=== PATIENT | female | born 1940 | race Caucasian/White ===

== ENCOUNTER 2017-05-30 07:06 | Inpatient (IN) | payer MEDICARE ==
[~2017-05-30] VITALS: Ht 167.6 cm; Wt 79.0 kg
[~2017-05-30 07:06] MED LIST: ACETAMINOPHEN325 M1 PO; AMLODIPINE; ATORVASTATIN CA20 MG PO; BISACODYL5 MG PR; CENTRUM SILVER1 EAC3 PO; CLOPIDOGREL75 MG PO; GABAPENTIN400 MG PO; GLIMEPIRIDE4 MG PO; HYDROCHLO; NORCO 10MG-325MG1 EA PO; NOVOLIN 70100 UNITS/; NYSTATIN1 EAC1; ONDANSETRO4 MG/UDTAB PO; RENA-VITE RX T1 EACH; SANTYL15 GM; TYLENOL WITH C1 EAC1 PO; Z.0.ASPIRIN325 MG PO; Z.0.FUROSEMIDE40 MG PO; Z.0.GLIPIZIDE5 MG PO; Z.0.HYDROCHLOROTHIA2 PO; Z.0.LISINOPRIL40 MG PO; Z.0.METOPROLOL TART2 PO; Z.0.NORCO 10-325 T1 PO; Z.0.SIMVASTATIN40 MG PO; Z.0.TRADJENTA5 MG PO; ZINC SULFATE220 M1; [UNRECOGNIZED DRUG - OTHER] PO; [UNRECOGNIZED DRUG - OTHER] PO
[2017-05-30] MEDS ORDERED: ASPIRIN 325 MG TAB PO ONE (07:30)
[2017-05-30] MEDS ORDERED: ACETAMINOPHEN 325 MG TAB PO STA (07:36)
[2017-05-30 07:39] LABS: BASOPHILS % 0.2 % (0.0-1.0); EOSINOPHILS % 0.2 % (0.0-6.0); HEMATOCRIT 33.3 % (34.2-44.1); HEMOGLOBIN 10.5 g/dL (12.0-16.0); LYMPHOCYTES # (AUTO) 3.2 (1.0-3.2); LYMPHOCYTES % 18.9 % (18.0-39.1); MEAN CORPUSCULAR HEMOGLOBIN 30.9 pg (28-32); MEAN CORPUSCULAR HGB CONC 31.5 g/dL (31-35); MEAN CORPUSCULAR VOLUME 97.9 fL (81-99); MONOCYTES # (AUTO) 0.8 (0.2-0.8); MONOCYTES % 4.7 % (4.4-11.3); NEUTROPHILS # (AUTO) 12.6 (2.1-6.9); NEUTROPHILS % 75.5 % (38.7-80.0); PLATELET COUNT 135 x10e3/uL (140-360); RED CELL DISTRIBUTION WIDTH 16.7 % (11.7-14.4)
[2017-05-30 07:50] LABS: INR 1.03
[2017-05-30 07:51] LABS: PARTIAL THROMBOPLASTIN TIME 31.9 seconds (23.8-35.5)
[2017-05-30 07:58] LABS: ALBUMIN 3.1 g/dL (3.5-5.0); ALBUMIN/GLOBULIN RATIO 0.6 (0.8-2.0); CALCIUM 8.9 mg/dL (8.4-10.2); CREATININE, SERUM 4.61 mg/dL (0.57-1.11)
--- NOTE | 2017-05-30 08:03 | Diagnostic Imaging Report ---
PROCEDURE: A single AP view of the chest. COMPARISON: Portable chest 09/08/2016. INDICATIONS: CHEST PAIN FINDINGS: Lines/tubes: None. Lungs: Bilateral multifocal airspace opacifications. No parenchymal mass. Pleura: Small bilateral pleural effusions. No pneumothorax. Heart and mediastinum: The heart and the mediastinum are unremarkable. Atherosclerotic calcifications. Bones: No acute bony abnormality. Degenerative changes of the thoracic spine. IMPRESSION: Bilateral multifocal airspace opacifications may represent edema or pneumonia. Dictated by: Angelo Rebolledo M.D. on 05/30/2017 at 8:11 Electronically approved by: Angelo Rebolledo M.D. on 05/30/2017 at 8:11
[2017-05-30 08:07] LABS: CREATINE KINASE MB 30.3 ng/mL (0.00-5.00)
[2017-05-30 08:13] LABS: TROPONIN I 18.34 ng/mL (0-0.300)
[2017-05-30] MEDS ORDERED: SODIUM CHLORIDE 0.9% 1000ML 1,000 ML IV STA (08:20)
[2017-05-30] MEDS ORDERED: LEVOFLOXACIN 500MG/D5W 100ML 100 ML IV STA (08:21)
[2017-05-30] MEDS ORDERED: VANCOMYCIN 1GM/NS 250 ML 250 ML IV STA (08:21)
[2017-05-30 08:23] LABS: BILIRUBIN,URINE NEGATIVE (NEGATIVE); KETONES,URINE NEGATIVE (NEGATIVE); LEUKOCYTE ESTERASE ,URINE TRACE (NEGATIVE); NITRITE,URINE NEGATIVE (NEGATIVE); URINE UROBILINOGEN 0.2 mg/dL (0.2 - 1)
[2017-05-30] MEDS ORDERED: SODIUM CHLORIDE 0.9% 1000ML 1,000 ML ONE ×2 (08:25→17:22)
[2017-05-30 08:26] LABS: PROTEIN,URINE DIPSTICK 2+ (NEGATIVE)
[2017-05-30 08:27] LABS: CLARITY,URINE SL CLOUDY (CLEAR); COLOR,URINE YELLOW (YELLOW)
[2017-05-30 08:38] LABS: AMORPHOUS SEDIMENT,URINE RARE (FEW); BACTERIA,URINE RARE /HPF; EPITHELIAL CELLS,URINE FEW /LPF; TRANSITIONAL EPI CELLS,URINE RARE
[2017-05-30 08:40] LABS: STREPTOCOCCUS GRP A ANTIGEN NEGATIVE (NEGATIVE)
[2017-05-30 08:47] LABS: INFLUENZAE A&B ANTIGEN (RAPID) NEGATIVE (NEGATIVE)
[2017-05-30] MEDS ORDERED: SODIUM CHLORIDE 0.9% 1000ML 1,000 ML IV SCH (09:15)
[2017-05-30] MEDS ORDERED: NORCO 7.5-3251 EACH PO (09:38)
[2017-05-30] MEDS ORDERED: GABAPENTIN300 MG PO (09:38)
[2017-05-30] MEDS ORDERED: ALBUTEROL/IPRATROPIUM 3 ML NEB NEB PRN (10:00)
--- NOTE | 2017-05-30 10:12 | History and Physical ---
I am covering for Dr. Luna. Ms. 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 She has been having chest pain on and off, shortness of breath and fevers. She decided to come to the emergency room. PAST MEDICAL HISTORY: She has a history of diabetes, end-stage renal disease, peripheral arterial disease, status post stent. SURGICAL HISTORY: She had a left below knee amputation a year ago. She has a right little toe amputation. She had some type of chest surgery, chest mass removed several years ago. ALLERGIES: SHE IS ALLERGIC TO PENICILLIN, TETANUS TOXOID. SOCIAL HISTORY: She lives at home with her . She used to smoke and quit several years ago. She does not drink any alcohol. PHYSICAL EXAMINATION GENERAL: Today, she is awake. She is alert. VITALS: She had a 101 fever when she came. Blood pressure is low at 93/51. HEART: Regular rate. LUNGS: Poor inspiratory effort. She has some rhonchi on the left side. ABDOMEN: Distended and soft. She has an umbilical hernia that is not tender. EXTREMITIES: She has a left below knee amputation of the leg. BLOOD WORK: White count is 15.71, hemoglobin 10.5, hematocrit 33.3. Sodium 132, creatinine 4.61, glucose 236. is 344. Troponin is 18.34. CK-MB is also elevated. BNP is 2024. Urine shows 6-10 white blood cells. Influenza test and strep screening were negative. Urine culture and blood cultures are pending. Chest x-ray shows bilateral multifocal light airspace opacification. May represent edema or pneumonia. ASSESSMENT AND PLAN 1. Chest pain with elevated cardiac enzymes: Elevated troponin. Rule out coronary artery disease. Rule out myocardial infarction. 2. Sepsis due to low blood pressure, fever, elevated white count secondary to pneumonia. 3. End-stage renal disease, on dialysis. 4. Diabetes, type 2, uncontrolled. 5. Peripheral artery disease: Status post stent. 6. Left below knee amputation. PLAN: At the present time, get cardiology consult, infectious disease consult and nephrology consult. Patient is started on IV antibiotics. She is on IV fluids. The plan is to admit her to the ICU due to the low blood pressure, elevated white count, fever, and elevated cardiac enzymes. All of this was discussed with the patient and at bedside. All questions were answered to satisfaction. The prognosis is guarded. I spent more than 40 minutes examining the patient, talking with the patient and at bedside, reviewing lab results, x-rays, and elaborating a treatment plan. Patient is going to be admitted to the ICU as soon as we have a bed available. At the present time, she is still in the ER. Job#: [id number] KATELIN
[2017-05-30] MEDS: LEVOFLOXACIN 250MG/D5W 50ML 50 ML IV SCH (10:54)
[2017-05-30] MEDS: SODIUM CHLORIDE 0.9% 1000ML 1,000 ML IV SCH ×2 (11:30→17:02)
[2017-05-30] MEDS ORDERED: ASPIRIN 81 MG CHEW TAB PO ONE (11:45)
[2017-05-30] MEDS ORDERED: HEPARIN SOD (PORCINE) 1000 UNIT/ML SDV IV ONE (12:00)
--- NOTE | 2017-05-30 12:50 | Consultation ---
DATE OF CONSULTATION: May 30, 2017 CARDIOLOGY CONSULTATION REQUESTING PHYSICIAN: Kayla Winkler MD REASON FOR CONSULTATION: Chest pain. HISTORY OF PRESENT ILLNESS: This is a 75-year-old woman with history of end-stage renal disease on hemodialysis, peripheral arterial disease status post left BKA, diabetes mellitus, hypertension, and reported history of congestive heart failure, who presented with complaint of chest pain. She reports her chest pain began yesterday morning. She describes it as a hurting pain high in the center of her chest. The pain was 8 out of 10 in severity and associated with shortness of breath. There was no nausea, diaphoresis or radiation. She denies edema, orthopnea or PND. The pain was ongoing until she presented to the ER. On arrival to the ER, she was found to have a leukocytosis of 16.7 as well as troponin of 18.3, CK 344 and CK-MB 3. BNP was 2,000. Lactic acidosis of 42.3. Cardiology was consulted for further evaluation. REVIEW OF SYSTEMS: Negative, except as per HPI. PAST MEDICAL HISTORY 1. Diabetes mellitus. 2. Hypertension. 3. Peripheral arterial disease, status post left BKA and revascularization. 4. End-stage renal disease on hemodialysis. 5. Reported history of congestive heart failure. PAST SURGICAL HISTORY 1. Left BKA. 2. Right toe amputation. ALLERGIES: PLEASE SEE EMR. MEDICATIONS: Please see medication list. SOCIAL HISTORY: She quit smoking in 1999, but previously smoked a pack per day. No alcohol or drugs. FAMILY HISTORY: Noncontributory. PHYSICAL EXAMINATION VITAL SIGNS: Temperature 98.4, pulse 68, respiratory rate 19, blood pressure 87/48, oxygen saturation 99%. GENERAL: Well-developed, well-nourished woman in no acute distress. HEENT: Normocephalic and atraumatic. Pupils are equal. No scleral icterus. NECK: Supple. No thyromegaly or cervical lymphadenopathy. She is wearing BiPAP. LUNGS: Clear to auscultation bilaterally. No wheezes or crackles. CARDIOVASCULAR: Normal rate, regular rhythm. No murmur. Normal S1 and S2. ABDOMEN: Soft. Nontender. EXTREMITIES: No edema. Status post left BKA. NEURO: Nonfocal exam. LABS: Sodium 132, potassium 5, chloride 96, CO2 19, BUN 57, creatinine 4.6. Lactic acid 42.3. Troponin 18.3. BNP 2024. WBC 6.7, hemoglobin 10.5, hematocrit 32.3, platelets 135. CHEST X-RAY: Bilateral multifocal air space opacifications may represent edema or pneumonia. EKG: Sinus tachycardia with frequent PVCs and fusion complexes, left axis deviation, pulmonary disease pattern. RSR prime or QR pattern in V1 suggests right ventricular conduction delay, septal infarct age undetermined. IMPRESSION 1. Upg-JK-rginnlvgf myocardial infarction. 2. Sepsis with fever, tachycardia and hypotension, possibly urinary source versus pneumonia. 3. End-stage renal disease on dialysis. 4. Diabetes mellitus, type 2. 5. Peripheral arterial disease, status post stent and left below-knee amputation. 6. History of congestive heart failure. RECOMMENDATIONS: Start heparin drip. Trend cardiac enzymes. Obtain echocardiogram. Antibiotics per primary service. Vasopressor support as well as fluids as necessary given suspected sepsis. Thank you for this consult. We will continue to follow. Job#: [id number]
--- NOTE | 2017-05-30 13:06 | Consultation ---
DATE OF CONSULTATION: May 30, 2017 INFECTIOUS DISEASE CONSULTATION REASON FOR CONSULT: Sepsis. HPI: This is a 76-year-old female with history of end-stage renal disease on hemodialysis through a left arm AV fistula, who presented to the emergency room at [facility] with intermittent chest pain and shortness of breath. She was noted to have hypoxia down to 80% on her baseline nasal cannula, so she was put on BiPAP. EKG showed atrial flutter. She was also noted to have leukocytosis of 16,000 and fever of 101. Urinalysis was abnormal, and she was started on empiric antibiotics. REVIEW OF SYSTEMS CONSTITUTIONAL: Fever. No chills. CHEST: Intermittent chest pain and palpitations. RESPIRATIONS: Shortness of breath with no cough. GASTROINTESTINAL: No nausea, vomiting or diarrhea. SKIN: No rash. MUSCULOSKELETAL: No change in joint pain or joint swelling. PAST MEDICAL HISTORY: Peripheral vascular disease, end-stage renal disease, diabetes. PAST SURGICAL HISTORY: Left below-knee amputation, right 5th toe amputation, coronary angioplasty and stent placement, left arm AV fistula creation about 2 years ago. SOCIAL HISTORY: Lives at home. Nonsmoker. Nondrinker. FAMILY HISTORY: Hypertension. MEDICATIONS: Reviewed, include vancomycin and levofloxacin. PHYSICAL EXAMINATION VITAL SIGNS: Currently afebrile with temperature 98.4, 101 on presentation. Pulse 90, respirations 23, blood pressure 89/46, pulse ox 96% on BiPAP. Her pulse ox was 83% on nasal cannula. GENERAL: Alert and awake on BiPAP. NECK: Supple. LUNGS: Clear to auscultation. HEART: Irregular, tachycardic. ABDOMEN: Soft and nontender. EXTREMITIES: Left BKA. No cyanosis or clubbing. LABS: White count 16, hemoglobin 10, platelets 135. Sodium 132, potassium 5, creatinine 4. Lactic acid 42. Creatine kinase elevated at 344. CK-MB 30. Troponin 18. BUN was cloudy with positive leukocyte esterase, 10 white cells and rare bacteria. Cultures are pending. IMPRESSION 1. Sepsis, possibly secondary to urinary tract infection. 2. Respiratory distress, likely secondary to atrial flutter. 3. End-stage renal disease on hemodialysis through a 2-year-old unremarkable left arm arteriovenous fistula. 4. Peripheral vascular disease status post left below-knee amputation and right 5th toe amputation. RECOMMENDATIONS: Blood, urine and sputum cultures have been collected. Continue renally dose levofloxacin for now and follow cultures. Dr. Alexandra to follow. Thank you for the consult. Job#: [id number]
[2017-05-30] MEDS: HEPARIN 25,000U/0.45% NS 250ML 800 UNIT in SODIUM CHLORIDE 0.9% 250ML 0 ML IV SCH (13:59)
[2017-05-30] MEDS ORDERED: NOREPINEPHRINE BITARTRATE/ NS 250 ML IV PRN (14:00)
--- NOTE | 2017-05-30 14:02 | Diagnostic Imaging Report ---
PROCEDURE:ULTRASOUND GUIDANCE FOR VASCULAR ACCESS COMPARISON:None. INDICATIONS:Central Line Placement FINDINGS:Right internal jugular vein is occluded. The right external jugular vein is noted to be patent. Ultrasound guidance was utilized for access for central venous catheter placement. CONCLUSION:Patent right external jugular vein. Successful ultrasound guidance for central venous catheter placement. Dictated by: Angelo Rebolledo M.D. on 05/30/2017 at 14:11 Electronically approved by: Angelo Rebolledo M.D. on 05/30/2017 at 14:11
[2017-05-30] MEDS ORDERED: ALBUMIN 5% 250ML IV ONE (14:15)
[2017-05-30] MEDS ORDERED: NOREPINEPHRINE INJ 4MG/4ML 8 MG in SODIUM CHLORIDE 0.9% 250ML 250 ML IV PRN (14:15)
[2017-05-30] MEDS ORDERED: ALBUMIN HUMAN 50 ML IV ONE (14:15)
--- NOTE | 2017-05-30 14:18 | Diagnostic Imaging Report ---
PROCEDURE:NON-TUNNELLED CVC CATH PLACMNT COMPARISON:None. INDICATIONS: Central Line Placement COMPLICATIONS: None MEDICATIONS: None BLOOD LOSS: None. PROCEDURE: The procedure was performed at the bedside in the emergency room. Ultrasonographic evaluation demonstrated an occluded right internal jugular vein. The right external jugular vein is patent. A safer approach was determined. The right neck was prepped and draped in usual sterile fashion. 1% lidocaine was infused into the subcutaneous tissues for local anesthesia. Utilizing direct sonographic guidance, a 21 gauge needle was advanced into the right external jugular vein. A 0.018 inch wire was advanced centrally. An access sheath placed over the wire to secure the vascular access. The wire was upsized to a 0.035 inch wire. A single dilation was performed over the wire. A triple-lumen catheter was advanced over the wire. The wire was removed. The catheter ports demonstrated proper function with aspiration and flushing with sterile saline. The catheter ports were flushed with sterile saline. The catheter was secured to the skin with 3-0 Ethilon suture. A sterile dressing was applied. The patient tolerated the procedure well. There were no immediate complications. The patient remained in the emergency room in stable unchanged condition. CONCLUSION: Successful placement of a right external jugular temporary central venous catheter utilizing ultrasound guidance. Dictated by: Angelo Rebolledo M.D. on 05/30/2017 at 14:26 Electronically approved by: Angelo Rebolledo M.D. on 05/30/2017 at 14:26
--- NOTE | 2017-05-30 14:28 | Diagnostic Imaging Report ---
PROCEDURE: A single AP view of the chest. COMPARISON: None. INDICATIONS: CENTRAL LINE PLACEMENT FINDINGS: Lines/tubes: Right external jugular temporary central venous catheter with tip projecting over the expected region of the superior vena cava. Lungs: Bibasilar airspace opacities. No parenchymal mass. Pleura: Moderate left and small right pleural effusions. No pneumothorax. Heart and mediastinum: The heart and the mediastinum are unremarkable. Atherosclerotic calcifications. Bones: No acute bony abnormality. Degenerative changes of the thoracic spine. IMPRESSION: Bibasilar airspace opacities may represent developing pneumonia. Dictated by: Angelo Rebolledo M.D. on 05/30/2017 at 14:37 Electronically approved by: Angelo Rebolledo M.D. on 05/30/2017 at 14:37
[2017-05-30 14:39] LABS: CREATINE KINASE MB 21.3 ng/mL (0.00-5.00)
[2017-05-30 14:43] LABS: TROPONIN I 16.19 ng/mL (0-0.300)
--- NOTE | 2017-05-30 14:43 | Consultation ---
DATE OF CONSULTATION: May 30, 2017 NEPHROLOGY CONSULT REASON FOR THE CONSULT: End-stage renal disease. HISTORY OF PRESENT ILLNESS: This is a 76-year-old female who is known to our service as we manage her dialysis as an outpatient. She is known to have multiple medical problems including hypertension, diabetes, peripheral vascular disease status post BKA on the left side, and she has a chronic right foot ulcer and right toe amputation. She is known to have severe vascular disease status post previous angioplasties and end-stage renal disease on hemodialysis every Saturday/Saturday/Saturday at [facility]. She called yesterday at the unit, complaining that she was not feeling well and she was feeling some fever, chills, along with diarrhea in the last couple of days and muscle aches. So, she did not come for dialysis and she rescheduled for today. Today she woke up; she was having chest pain, substernal, high in her chest, scale 7 out of 10, nonradiating, with mild nausea. So, she came to the ER for further evaluation, and Cardiology has been consulted on the case. No other GI/ complaints. The patient was found to have fever of 101 along with leukocytosis and x-ray suggestive of pneumonia. She is hypotensive currently in the ER. We are consulted to manage dialysis as an inpatient. PAST MEDICAL HISTORY: As mentioned above. REVIEW OF SYSTEMS: Negative otherwise. PAST SURGICAL HISTORY: As mentioned above. Status post left BKA, previous angioplasties, right toe amputation, and AV fistula and previous AV access for dialysis. ALLERGIES: PER RECORD. SOCIAL HISTORY: Ex-smoker, quit in the past. No alcohol, no IV drug abuse. Living with her . VITAL SIGNS: Today blood pressure is 96/48. Heart rate is 68 and temperature 101. PHYSICAL EXAMINATION GENERAL APPEARANCE: No acute distress, x3. HEAD, EARS, EYES, NECK: No lymphadenopathy. HEART: Regular rate and rhythm. LUNGS: Bibasilar rales. ABDOMEN: Soft, nontender. EXTREMITIES: Trace edema. White count is 16.7 with left shift, neutrophils 75%. Hemoglobin 10.5. She has sodium 132, potassium is 5, BUN is 57, creatinine is 4.6, CO2 is 19. Lactic acid is 42. Calcium is 8.9. LFTs are okay except AST 69. Troponin 18.34. Albumin 3.1. Chest x-ray: Bilateral opacities. ASSESSMENT AND PLAN 1. End-stage renal disease on hemodialysis every Saturday/Saturday/Saturday, skipped her dialysis yesterday because she was feeling so sick. She is coming today. We are going to dialyze her, and orders have been given. 2. Electrolytes. Low potassium bath. 3. Hypotension. Blood pressure is on the low side. Might need pressor support given septic shock. 4. Pneumonia. On antibiotics per primary team. Check for influenza as we are seeing a lot of flu cases recently. 5. Anemia of chronic disease. Epogen if hemoglobin drops below 10. 6. Diabetes. Monitor blood sugar. 7. Sepsis with leukocytosis along with fever and chills. Suspect the focus is pneumonia. Pancultures have been sent. She is on antibiotics. Also note that the patient has chronic right foot ulcer. 8. Peripheral vascular disease status post previous angioplasties with left below-knee amputation. Patient has chronic right foot ulcer. She follows with Dr. Stoner. Needs wound care evaluation. 9. Mag-DE-xfjxnpgvw myocardial infarction with positive troponin. Dr. Ashton, cardiology, is following. Echo has been ordered. She will start on heparin drip. Will follow her recommendation regarding whether the patient will benefit from heart cath given high risk with diabetes. Will follow their recommendation. Thank you for the consult. We will update the primary team for further recommendations. Job#: [id number] JANY
[2017-05-30 21:17] LABS: CREATINE KINASE MB 22.5 ng/mL (0.00-5.00)
[2017-05-30 21:27] LABS: TROPONIN I 21.452 ng/mL (0-0.300)
[2017-05-31] VITALS (14 sets, daily range): BP systolic 90–132; BP diastolic 46–107
[2017-05-31] MEDS: HYDROCODONE/APAP 7.5MG-325MG 1 EA TAB PO PRN ×3 (01:03→18:14)
[2017-05-31] MEDS: GABAPENTIN 300 MG CAP PO SCH ×4 (01:03→21:52)
[2017-05-31] MEDS ORDERED: GABAPENTIN 300 MG CAP ONE (01:04)
[2017-05-31 03:55] LABS: CREATINE KINASE MB 12.9 ng/mL (0.00-5.00)
[2017-05-31 03:56] LABS: TROPONIN I 12.431 ng/mL (0-0.300)
[2017-05-31] MEDS: SODIUM CHLORIDE 0.9% 1000ML 1,000 ML IV SCH ×3 (08:20→15:22)
--- NOTE | 2017-05-31 10:06 | Progress Note ---
DATE: May 31, 2017 Ms. Cox is a 76-year-old female with a history of peripheral arterial disease, status post stents, end-stage renal disease, on dialysis, diabetes, status post left below knee amputation of the leg a year ago, came to the emergency room complaining of not feeling good for 2-3 days. Developed some shortness of breath and fever. When she came to the emergency room, there was a questionable pneumonia. Troponin was elevated. She ruled in for a fjk-BB-zaiuxrirx IA. At the present time, she is still in the ER. We are waiting for an ICU bed. PHYSICAL EXAMINATION GENERAL: She is awake and alert. She is on BiPAP. VITALS: Temperature is 98.6, blood pressure 122/48. HEART: Regular rate. LUNGS: Clear. ABDOMEN: Distended and soft. BLOOD WORK: White count yesterday was 16.71. Troponin has been elevated 3 times. Urine showed 6-10 white blood cells. Blood cultures so far negative. Urine culture is pending. ASSESSMENT AND PLAN 1. Chest pain with positive cardiac enzymes: She ruled in for a mnl-OW-awccirxfe myocardial infarction. 2. Sepsis secondary to probably pneumonia. 3. End-stage renal disease, on hemodialysis. 4. Diabetes. 5. Peripheral arterial disease, status post stent. 6. Left below knee amputation. PLAN: At the present time, we are waiting for an ICU bed. She is on BiPAP. Continue IV antibiotics. Continue ADA diet. Sliding scale with insulin. The prognosis is still guarded. Like I said, we are waiting for a bed in ICU. All of this was discussed with the patient. All questions were answered to satisfaction. I spent more than 30 minutes examining the patient, overnight events, lab results, x-ray results, and discussing treatment plan with the patient. Job#: [id number] KATELIN
[2017-05-31 10:08] LABS: BASOPHILS % 0.4 % (0.0-1.0); EOSINOPHILS # (AUTO) 0.1 (0.0-0.4); EOSINOPHILS % 0.5 % (0.0-6.0); HEMATOCRIT 31.2 % (34.2-44.1); HEMOGLOBIN 9.6 g/dL (12.0-16.0); LYMPHOCYTES # (AUTO) 1.6 (1.0-3.2); LYMPHOCYTES % 15.5 % (18.0-39.1); MEAN CORPUSCULAR HEMOGLOBIN 30.7 pg (28-32); MEAN CORPUSCULAR HGB CONC 30.8 g/dL (31-35); MEAN CORPUSCULAR VOLUME 99.7 fL (81-99); MONOCYTES # (AUTO) 0.7 (0.2-0.8); MONOCYTES % 7.2 % (4.4-11.3); NEUTROPHILS # (AUTO) 7.9 (2.1-6.9); PLATELET COUNT 120 x10e3/uL (140-360); RED BLOOD COUNT 3.13 x10e6/uL (3.6-5.1)
[2017-05-31 10:26] LABS: ALBUMIN 2.7 g/dL (3.5-5.0); ALBUMIN/GLOBULIN RATIO 0.6 (0.8-2.0); ANION GAP 19.1 mmol/L (8-16); CALCIUM 8.8 mg/dL (8.4-10.2); CREATININE, SERUM 2.78 mg/dL (0.57-1.11); POTASSIUM 4.1 mmol/L (3.5-5.1)
[2017-05-31] MEDS: HEPARIN 25,000U/0.45% NS 250ML 800 UNIT in SODIUM CHLORIDE 0.9% 250ML 0 ML IV SCH (10:40)
[2017-05-31 11:58] LABS: CREATINE KINASE MB 13.6 ng/mL (0.00-5.00)
[2017-05-31] MEDS ORDERED: EPOETIN ALFA 10000 UNIT/ML VIAL SC SCH (12:00)
[2017-05-31 12:15] LABS: TROPONIN I 13.44 ng/mL (0-0.300)
--- NOTE | 2017-05-31 14:36 | Progress Note ---
DATE: May 31, 2017 CARDIOLOGY PROGRESS NOTE SUBJECTIVE: Patient denies chest pain or shortness of breath. She is requiring Levophed 5 mcg per minute as well as BiPAP for respiratory support. Staff indicates that when BiPAP is removed the patient will desat. OBJECTIVE VITAL SIGNS: Temperature 98.7 degrees, pulse 70, respiratory rate 19, blood pressure 115/46, oxygen saturation 100% on BiPAP. GENERAL: Awake, alert, in no acute distress. LUNGS: Clear to auscultation bilaterally. No wheezes or crackles. CARDIOVASCULAR: Normal rate, regular rhythm. No murmur. Normal S1 and S2. ABDOMEN: Soft, nontender. EXTREMITIES: No edema. Status post left BKA. CARDIAC MEDICATIONS: Heparin drip. LABS: WBC 10.3, hemoglobin 9.6, hematocrit __91.2, platelets 120. Sodium 140, potassium 4.1, chloride 104, CO2 21, BUN 29, creatinine 2.78. Troponin 13.4. TELEMETRY: Normal sinus rhythm. IMPRESSION 1. Septic shock requiring vasopressor support, urinary source versus pneumonia. 2. Kej-JG-eseqqtnfu myocardial infarction. 3. End-stage renal disease on hemodialysis. 4. Diabetes mellitus type 2. 5. Peripheral arterial disease status post left superficial femoral artery stent and below-knee amputation. RECOMMENDATIONS: Continue heparin drip. Cardiac enzymes are downtrending. Given patient is asymptomatic and requiring vasopressor support as well as BiPAP, medical management for now. Once patient is more stable, will plan for ischemic evaluation and coronary evaluation at that time. Start aspirin. Check fasting lipid panel. Antibiotics per primary service. Vasopressor support and fluids as necessary given sepsis. Thank you for this consult. We will continue to follow. Job#: [id number] EV
[2017-05-31 18:37] LABS: CREATINE KINASE MB 11.1 ng/mL (0.00-5.00)
[2017-05-31 18:42] LABS: TROPONIN I 12.304 ng/mL (0-0.300)
[2017-05-31] MEDS ORDERED: DEXTROSE 50% SYRINGE 50 ML IV PRN (21:45)
[2017-05-31] MEDS: INSULIN REGULAR, HUMAN 100 UNIT/1 ML 3ML VIAL SQ SCH (22:00)
[2017-06-01] VITALS (69 sets, daily range): BP systolic 75–153; BP diastolic 37–93
[2017-06-01] MEDS: HYDROCODONE/APAP 7.5MG-325MG 1 EA TAB PO PRN ×4 (03:56→23:48)
[2017-06-01] MEDS: GABAPENTIN 300 MG CAP PO SCH ×5 (03:56→23:48)
[2017-06-01 04:39] LABS: BASOPHILS % 0.3 % (0.0-1.0); EOSINOPHILS # (AUTO) 0.2 (0.0-0.4); EOSINOPHILS % 2.4 % (0.0-6.0); HEMATOCRIT 25.4 % (34.2-44.1); LYMPHOCYTES # (AUTO) 1.6 (1.0-3.2); LYMPHOCYTES % 24.7 % (18.0-39.1); MEAN CORPUSCULAR HEMOGLOBIN 30.9 pg (28-32); MEAN CORPUSCULAR HGB CONC 31.1 g/dL (31-35); MEAN CORPUSCULAR VOLUME 99.2 fL (81-99); MONOCYTES # (AUTO) 0.6 (0.2-0.8); MONOCYTES % 9.3 % (4.4-11.3); PLATELET COUNT 121 x10e3/uL (140-360); RED BLOOD COUNT 2.56 x10e6/uL (3.6-5.1); RED CELL DISTRIBUTION WIDTH 16.9 % (11.7-14.4)
[2017-06-01 04:42] LABS: HEMOGLOBIN 7.9 g/dL (12.0-16.0)
[2017-06-01 04:53] LABS: ANION GAP 14.2 mmol/L (8-16); CALCIUM 8.6 mg/dL (8.4-10.2); CREATININE, SERUM 3.34 mg/dL (0.57-1.11); POTASSIUM 4.2 mmol/L (3.5-5.1)
[2017-06-01] MEDS: INSULIN REGULAR, HUMAN 100 UNIT/1 ML 3ML VIAL SQ SCH ×4 (07:30→21:45)
[2017-06-01] MEDS ORDERED: INSULIN REGULAR, HUMAN 100 UNIT/1 ML 3ML VIAL SQ SCH (07:30)
[2017-06-01] MEDS ORDERED: VANCOMYCIN 1GM/NS 250 ML 250 ML IV ONE (10:00)
[2017-06-01] MEDS: LEVOFLOXACIN 250MG/D5W 50ML 50 ML IV SCH (10:29)
[2017-06-01 11:12] LABS: CHOL/HDL RATIO 3.2 (3.0-3.6)
--- NOTE | 2017-06-01 11:49 | Diagnostic Imaging Report ---
Portable chest x-ray CPT code 72241 INDICATION: Pneumonia COMPARISON: Chest x-ray 09/08/2016 FINDINGS: Frontal view of the chest obtained at 1114 hours. The cardiac silhouette is enlarged. Calcifications of the aortic arch are stable. The pulmonary vascular marking are increased. Right subclavian central venous catheter terminates in the SVC. The lungs demonstrate prominent pulmonary interstitium and groundglass airspace opacities throughout the lungs. Left diaphragm is not visualized. There are new patchy opacities in the right lung base. There is no pneumothorax. The osseous structures are intact and normal in morphology. IMPRESSION: 1. Cardiomegaly and pulmonary vascular congestion. A component of pulmonary edema is suspected. 2. Retrocardiac airspace disease is suggestive of atelectasis or infiltrate. Small effusion cannot be excluded. 3. Right basilar atelectasis. Small right pleural effusion cannot be excluded. 4. Central line as described above. No pneumothorax. Signed by: Dr. Rosario Sidhu MD on 06/01/2017 11:45 AM
[2017-06-01] MEDS ORDERED: ASPIRIN 325 MG TAB PO ONE (12:30)
--- NOTE | 2017-06-01 13:49 | Progress Note ---
DATE: CARDIOLOGY PROGRESS NOTE SUBJECTIVE: Patient endorses pain in the middle of her back radiating to her chest. Denies any palpitation, but endorses some shortness of breath. OBJECTIVE VITAL SIGNS: Temperature 98.4, pulse 101, respiratory rate 18, blood pressure 126/75, oxygen saturation 98% on 3 L nasal cannula. GENERAL: Alert and oriented times 3. Resting comfortably in bed. Does not appear to be in any acute distress. NECK: Supple no. JVD noted. LUNGS: Left lower lobe with scattered crackles. Clear to auscultation otherwise. CARDIOVASCULAR: Regular rate and rhythm. No murmurs. Normal S1 and S2. ABDOMEN: Round, soft and nontender. LOWER EXTREMITIES: Diminished pedal pulses. Left BKA. CARDIOVASCULAR MEDICATIONS: Heparin IV drip. LABS: WBC 6.36, hemoglobin 7.9, hematocrit 25.4, platelets 121,000. Sodium 138, potassium 4.2, BUN 42, creatinine 3.34, glucose 124. Calcium 8.6. PT 63.1. Telemetry is normal sinus rhythm. IMPRESSION 1. Septic shock, urinary versus pneumonia. 2. Zio-XZ-knhrzocmd myocardial infarction. 3. End-stage renal disease, on hemodialysis. 4. Diabetes mellitus, type 2. 5. Peripheral arterial disease, status post left superficial femoral artery stent and below knee amputation. RECOMMENDATIONS: Continue with heparin drip. Patient is asymptomatic. However, has been off BiPAP now and is improving. Will consider timing of coronary angiogram. Obtain a lipid panel. Maintain on telemetry at all times. Monitor closely. Consider a repeat CBC due to noted hemoglobin drop overnight. DICTATED BY ROYCE DUNLAP NP Job#: [id number] PR
[2017-06-01] MEDS ORDERED: ENOXAPARIN 30 MG/0.3 ML SYR SC SCH (17:00)
[2017-06-01] MEDS: METOPROLOL TARTRATE 25 MG TAB PO SCH (17:18)
[2017-06-01] MEDS ORDERED: SODIUM CHLORIDE 0.9% 1000ML 2,000 ML ONE (17:20)
[2017-06-01] MEDS ORDERED: AMIODARONE HCL 900 MG in DEXTROSE 5 % 500ML BOTTLE 482 ML IV SCH (19:45)
[2017-06-01] MEDS ORDERED: AMIODARONE HCL 100 ML IV ONE (19:48)
[2017-06-01] MEDS ORDERED: AMIODARONE HCL 150 MG/100 ML BAG IV ONE (20:15)
[2017-06-02] VITALS (43 sets, daily range): BP systolic 78–141; BP diastolic 29–87
[2017-06-02 03:33] LABS: BASOPHILS % 0.4 % (0.0-1.0); EOSINOPHILS # (AUTO) 0.1 (0.0-0.4); HEMATOCRIT 30.1 % (34.2-44.1); HEMOGLOBIN 9.3 g/dL (12.0-16.0); LYMPHOCYTES # (AUTO) 1.2 (1.0-3.2); LYMPHOCYTES % 15.3 % (18.0-39.1); MEAN CORPUSCULAR HEMOGLOBIN 29.9 pg (28-32); MEAN CORPUSCULAR HGB CONC 30.9 g/dL (31-35); MEAN CORPUSCULAR VOLUME 96.8 fL (81-99); MONOCYTES # (AUTO) 0.6 (0.2-0.8); NEUTROPHILS # (AUTO) 5.9 (2.1-6.9); NEUTROPHILS % 74.1 % (38.7-80.0); PLATELET COUNT 119 x10e3/uL (140-360); RED BLOOD COUNT 3.11 x10e6/uL (3.6-5.1); RED CELL DISTRIBUTION WIDTH 18.2 % (11.7-14.4)
[2017-06-02 03:53] LABS: ALBUMIN 2.6 g/dL (3.5-5.0); ALBUMIN/GLOBULIN RATIO 0.6 (0.8-2.0); ANION GAP 16.2 mmol/L (8-16); CALCIUM 8.6 mg/dL (8.4-10.2); CREATININE, SERUM 3.19 mg/dL (0.57-1.11); POTASSIUM 4.2 mmol/L (3.5-5.1)
[2017-06-02 04:06] LABS: TROPONIN I 11.867 ng/mL (0-0.300)
[2017-06-02] MEDS: GABAPENTIN 300 MG CAP PO SCH ×3 (05:57→21:02)
[2017-06-02] MEDS: HYDROCODONE/APAP 7.5MG-325MG 1 EA TAB PO PRN ×3 (05:58→21:03)
[2017-06-02] MEDS: INSULIN REGULAR, HUMAN 100 UNIT/1 ML 3ML VIAL SQ SCH ×4 (07:41→21:05)
[2017-06-02] MEDS: METOPROLOL TARTRATE 25 MG TAB PO SCH ×2 (09:00→17:00)
[2017-06-02] MEDS: LEVOFLOXACIN 250MG/D5W 50ML 50 ML IV SCH (10:18)
[2017-06-02] MEDS: WATER STERILE 10 ML VIAL IV SCH (11:22)
[2017-06-02] MEDS: CEFEPIME HCL 2 GM VIAL IV SCH (11:22)
--- NOTE | 2017-06-02 15:51 | Progress Note ---
DATE: CARDIOLOGY PROGRESS NOTE SUBJECTIVE: Patient denies any chest pain or shortness of breath or palpitation. She states that the chest pain she was initially having has now resolved. OBJECTIVE VITAL SIGNS: Temperature 98.8, pulse 68, respiratory rate 20, blood pressure 107/55, oxygen saturation 99% on 3 liters nasal cannula. CARDIOVASCULAR MEDICATIONS 1. Metoprolol 25 mg p.o. b.i.d. 2. Amiodarone 200 mg p.o. q.12. 3. Aspirin p.o. daily. LABS: WBC 8.02, hemoglobin 9.3, hematocrit 30.1, platelets 119. Sodium 132, potassium 4.2, BUN 34, creatinine 3.19, glucose 304. AST 168, ALT 124. PTT 45.5. PHYSICAL EXAMINATION GENERAL: Alert and oriented x3. Resting comfortably in bed. Does not appear to be in any acute distress. Family at the bedside. NECK: Supple. No JVD noted. LUNGS: Left lower lobe with fine crackles. Otherwise clear to auscultation. No wheezing or rhonchi. CARDIOVASCULAR: Regular rate and rhythm. No murmurs. Normal S1/S2. ABDOMEN: Rounded, soft, nontender. Normoactive bowel sounds. LOWER EXTREMITIES: Diminished pedal pulses. Left BKA. TELEMETRY: Sinus rhythm. IMPRESSION 1. Paroxysmal atrial fibrillation yesterday during dialysis. 2. Septic shock, urinary versus pneumonia. 3. Kwj-TF-yrsrvtyyy myocardial infarction. 4. End-stage renal disease on hemodialysis. 5. Diabetes mellitus type 2. 6. Peripheral arterial disease status post left superficial femoral artery stent and osydk-cct-ynra amputation. RECOMMENDATION: Continue with the above list of cardiac medication. Continue to monitor patient closely. Transition to amiodarone p.o. for now. Okay to transfer patient out of ICU to a telemetry unit. Planning for coronary angiogram on Saturday afternoon. Will continue to monitor closely. Maintain on telemetry at all times. Will consider initiating anticoagulation after coronary intervention. Dictated by: Nichole Friend NP Job#: [id number] EV
[2017-06-02] MEDS: IPRATROPIUM BROMIDE 0.02% 2.5 ML NEB NEB SCH (19:50)
[2017-06-02] MEDS: LEVALBUTEROL HCL SOLN NEBU 0.63 MG/3 ML NEB INH SCH (19:50)
[2017-06-02] MEDS ORDERED: AMIODARONE HCL 200 MG TAB PO SCH (21:00)
[2017-06-03] VITALS: BP 131/62
[2017-06-03] MEDS: IPRATROPIUM BROMIDE 0.02% 2.5 ML NEB NEB SCH ×4 (00:30→19:32)
[2017-06-03] MEDS: LEVALBUTEROL HCL SOLN NEBU 0.63 MG/3 ML NEB INH SCH ×4 (00:30→19:32)
[2017-06-03] MEDS: GABAPENTIN 300 MG CAP PO SCH ×4 (00:49→19:11)
[2017-06-03] MEDS: HYDROCODONE/APAP 7.5MG-325MG 1 EA TAB PO PRN (03:05)
[2017-06-03 04:00] VITALS: BP 101/56
[2017-06-03 07:06] LABS: ALBUMIN 2.5 g/dL (3.5-5.0); ALBUMIN/GLOBULIN RATIO 0.6 (0.8-2.0); ANION GAP 14.1 mmol/L (8-16); CALCIUM 8.2 mg/dL (8.4-10.2); CREATININE, SERUM 4.35 mg/dL (0.57-1.11); POTASSIUM 4.1 mmol/L (3.5-5.1)
[2017-06-03] MEDS: INSULIN REGULAR, HUMAN 100 UNIT/1 ML 3ML VIAL SQ SCH ×4 (07:30→21:30)
--- NOTE | 2017-06-03 07:51 | Diagnostic Imaging Report ---
Portable chest x-ray CPT code 59611 INDICATION: Pneumonia COMPARISON: 06/01/2017 FINDINGS: Frontal view of the chest obtained at 0422 hours. The cardiac silhouette is enlarged and stable in morphology with calcifications of the aortic arch. Right subclavian central venous catheter terminates in the SVC. The pulmonary vascular marking are prominent and stable. The lungs demonstrate diffuse hyperinflation and superimposed groundglass airspace opacities. Retrocardiac airspace disease is stable. There is haziness of the right lung base suggestive of posterior atelectasis. No large effusions. There is no pneumothorax. The osseous structures are stable. Surgical clips in the upper left arm are stable. IMPRESSION: 1. No change in retrocardiac airspace disease either due to atelectasis or infiltrate with or without small pleural effusion. 2. Increasing right basilar airspace opacity is suggestive of posterior atelectasis. 3. Stable cardiomegaly and pulmonary vascular congestion with mild pulmonary edema. Signed by: Dr. Rosario Sidhu MD on 06/03/2017 7:48 AM
[2017-06-03 08:00] VITALS: BP 93/58
[2017-06-03 08:03] LABS: BASOPHILS % 0.4 % (0.0-1.0); EOSINOPHILS # (AUTO) 0.2 (0.0-0.4); EOSINOPHILS % 2.5 % (0.0-6.0); HEMATOCRIT 27.9 % (34.2-44.1); LYMPHOCYTES # (AUTO) 2.5 (1.0-3.2); LYMPHOCYTES % 34.8 % (18.0-39.1); MEAN CORPUSCULAR HEMOGLOBIN 30.7 pg (28-32); MEAN CORPUSCULAR HGB CONC 31.5 g/dL (31-35); MEAN CORPUSCULAR VOLUME 97.2 fL (81-99); MONOCYTES # (AUTO) 0.5 (0.2-0.8); NEUTROPHILS # (AUTO) 3.9 (2.1-6.9); NEUTROPHILS % 54.1 % (38.7-80.0); PLATELET COUNT 91 x10e3/uL (140-360); RED BLOOD COUNT 2.87 x10e6/uL (3.6-5.1)
[2017-06-03 08:23] LABS: HEMOGLOBIN 8.8 g/dL (12.0-16.0)
[2017-06-03] MEDS: METOPROLOL TARTRATE 25 MG TAB PO SCH ×2 (09:00→17:00)
[2017-06-03] MEDS: WATER STERILE 10 ML VIAL IV SCH (09:37)
[2017-06-03] MEDS: ASPIRIN 325 MG TAB PO SCH (09:37)
[2017-06-03] MEDS: CEFEPIME HCL 2 GM VIAL IV SCH (09:37)
[2017-06-03 12:00] VITALS: BP 105/74
[2017-06-03] MEDS: MORPHINE SULFATE 15MG TAB CR PO SCH ×2 (12:00→19:11)
--- NOTE | 2017-06-03 13:59 | Progress Note ---
DATE: June 03, 2017 CARDIOLOGY PROGRESS NOTE: SUBJECTIVE: Ms. Cox denies any chest pain. OBJECTIVE VITAL SIGNS: Afebrile. Heart rate 85. Blood pressure 92/58. O2 sat is 97%. CARDIOVASCULAR: Regular rhythm. S4 gallop. Hemoglobin is 8.8. Telemetry shows sinus rhythm. ASSESSMENT: 1. Non ST segment elevation myocardial infarction. 2. Paroxysmal atrial fibrillation, currently in sinus rhythm. PLAN: Coronary angiography tomorrow morning. This was discussed with the patient. Overall prognosis is poor. I thank Dr. Zuniga for this consultation. Job#: [id number] EV
[2017-06-03 16:00] VITALS: BP 115/56
[2017-06-03] MEDS: LEVOFLOXACIN 250 MG TAB PO SCH (19:10)
[2017-06-03] MEDS: EPOETIN ALFA 10000 UNIT/ML VIAL SC SCH (19:13)
[2017-06-04] MEDS: MORPHINE SULFATE 15MG TAB CR PO SCH ×5 (00:25→23:41)
[2017-06-04] MEDS: GABAPENTIN 300 MG CAP PO SCH ×5 (00:25→23:41)
[2017-06-04] MEDS: LEVALBUTEROL HCL SOLN NEBU 0.63 MG/3 ML NEB INH SCH ×4 (01:20→20:55)
[2017-06-04] MEDS: IPRATROPIUM BROMIDE 0.02% 2.5 ML NEB NEB SCH ×4 (01:20→20:55)
[2017-06-04 06:55] LABS: BASOPHILS % 0.5 % (0.0-1.0); EOSINOPHILS # (AUTO) 0.2 (0.0-0.4); EOSINOPHILS % 2.5 % (0.0-6.0); HEMATOCRIT 26.3 % (34.2-44.1); HEMOGLOBIN 8.3 g/dL (12.0-16.0); LYMPHOCYTES # (AUTO) 1.1 (1.0-3.2); LYMPHOCYTES % 18.6 % (18.0-39.1); MEAN CORPUSCULAR HEMOGLOBIN 30.9 pg (28-32); MEAN CORPUSCULAR HGB CONC 31.6 g/dL (31-35); MEAN CORPUSCULAR VOLUME 97.8 fL (81-99); MONOCYTES # (AUTO) 0.3 (0.2-0.8); MONOCYTES % 4.9 % (4.4-11.3); NEUTROPHILS # (AUTO) 4.4 (2.1-6.9); NEUTROPHILS % 72.2 % (38.7-80.0); PLATELET COUNT 94 x10e3/uL (140-360); RED BLOOD COUNT 2.69 x10e6/uL (3.6-5.1)
[2017-06-04] MEDS: INSULIN REGULAR, HUMAN 100 UNIT/1 ML 3ML VIAL SQ SCH ×4 (07:30→21:30)
[2017-06-04 07:35] LABS: ALBUMIN 2.4 g/dL (3.5-5.0); ALBUMIN/GLOBULIN RATIO 0.6 (0.8-2.0); ANION GAP 17.2 mmol/L (8-16); CALCIUM 8.2 mg/dL (8.4-10.2); CREATININE, SERUM 4.73 mg/dL (0.57-1.11); POTASSIUM 4.2 mmol/L (3.5-5.1)
[2017-06-04 08:00] VITALS: BP 111/53
[2017-06-04] MEDS: METOPROLOL TARTRATE 25 MG TAB PO SCH ×2 (09:00→17:04)
[2017-06-04] MEDS ORDERED: SODIUM CHLORIDE 0.9% 500ML 500 ML ONE (09:35)
[2017-06-04] MEDS ORDERED: MIDAZOLAM HCL 2 MG/2 ML VIAL ONE (09:35)
[2017-06-04] MEDS ORDERED: FENTANYL CITRATE/PF 100MCG/2 ML INJ ONE (09:35)
[2017-06-04] MEDS ORDERED: LIDOCAINE HCL 2% LOCAL 20 ML VIAL ONE (09:35)
[2017-06-04] MEDS ORDERED: HEPARIN SOD/SOD CHLORIDE 1,000 ML ONE (09:37)
--- NOTE | 2017-06-04 10:28 | Operative Report ---
DATE OF PROCEDURE: June 04, 2017 INDICATIONS: Dif-SX-miumgzm elevation myocardial infarction. PROCEDURES PERFORMED: Left heart catheterization, selective coronary angiography, left ventriculography. COMPLICATIONS: None. BLOOD LOSS: 10 mL. RECOMMENDATIONS: Medical therapy for moderate to severe coronary artery disease. Access was obtained in the right femoral artery. A 6-Georgian sheath was placed. Diagnostic coronary angiogram revealed calcified 20% left main stenosis, proximal left anterior descending artery, and mid 50% calcified lesion. The 1st diagonal artery was flush occluded at the origin from the left anterior descending artery with minimal amount of thrombus. Normal flow in the left anterior descending artery was noted. Circumflex was a small vessel. Right coronary artery was dominant. Mid 50% stenosis, heavily calcified. LV ejection fraction 50%. LV end-diastolic pressure of 24. Hypokinesis of the anterolateral wall of the left ventricle was noted. No gradient across the aortic valve on pullback. Right groin sheath removed under manual pressure. Patient was admitted to the hospital for continuing inpatient care. Job#: [id number]
--- NOTE | 2017-06-04 10:34 | Progress Note ---
DATE: June 04, 2017 CARDIOLOGY PROGRESS NOTE SUBJECTIVE: Ms. Cox denies any chest pain. OBJECTIVE VITAL SIGNS: Afebrile. Heart rate 84. Blood pressure is 178/48. CARDIOVASCULAR: Regular rhythm. S4 gallop. Systolic murmur. LUNGS: Decreased breath sounds bilaterally. TELEMETRY: Sinus rhythm. CARDIAC MEDICATIONS: Include metoprolol 25 b.i.d. LABS: Hemoglobin 8.3, creatinine 4.7. Transaminases continue to remain elevated. Coronary angiography demonstrated moderate coronary artery disease with flush occlusion of the 1st diagonal branch. This is the etiology of her sec-SB-rnutxyf-elevation myocardial infarction. ASSESSMENT 1. Apn-TG-fqnkpar-elevation myocardial infarction. 2. Paroxysmal atrial fibrillation. 3. End-stage renal disease. 4. Severe peripheral arterial disease. PLAN: Medical therapy for coronary artery disease. At this point, statins are contraindicated due to her transaminitis. Beta madeleine and aspirin should be continued. She is a poor candidate for anticoagulation owing to persistent anemia. We will continue to follow closely. From the cardiac standpoint, Ms. Cox is stable for discharge with close followup in the office. Job#: [id number]
[2017-06-04 12:00] VITALS: BP 123/53
[2017-06-04] MEDS: ASPIRIN 325 MG TAB PO SCH (12:05)
--- NOTE | 2017-06-04 14:54 | Progress Note ---
DATE: Ms. Cox is feeling better, but she had some pain in the groin. She underwent an angio today earlier. She also has some back pain. She is lying in bed comfortably, but she cannot move for 6 hours. PHYSICAL EXAMINATION HEENT: She is not icteric. Normocephalic. NECK: Supple. CHEST: Clear bilaterally. COR: S1 and S2, no murmur. ABDOMEN: Soft. Bowel sounds present. No tenderness. EXTREMITIES: No edema. SKIN: No skin rash. LABORATORY DATA: Reviewed. Her chart was reviewed. IMPRESSION 1. Status post dbi-AX-brgmolqhp myocardial infarction. 2. Paroxysmal atrial fibrillation. 3. End-stage renal disease. 4. Pneumonia. Doing well. Continue with Levaquin. Can switch to oral. Discontinue Plavix when okay with cardiology and other services. Job#: [id number]
[2017-06-04 16:00] VITALS: BP 128/59
[2017-06-04 20:08] VITALS: BP 100/55
[2017-06-05] MEDS: IPRATROPIUM BROMIDE 0.02% 2.5 ML NEB NEB SCH ×4 (02:15→21:15)
[2017-06-05] MEDS: LEVALBUTEROL HCL SOLN NEBU 0.63 MG/3 ML NEB INH SCH ×4 (02:15→21:15)
[2017-06-05] MEDS: GABAPENTIN 300 MG CAP PO SCH ×3 (06:00→17:37)
[2017-06-05] MEDS: MORPHINE SULFATE 15MG TAB CR PO SCH ×4 (06:00→18:00)
[2017-06-05] MEDS: INSULIN REGULAR, HUMAN 100 UNIT/1 ML 3ML VIAL SQ SCH ×4 (07:30→20:56)
[2017-06-05 07:47] LABS: CALCIUM 8.1 mg/dL (8.4-10.2); CREATININE, SERUM 4.15 mg/dL (0.57-1.11)
[2017-06-05 08:00] VITALS: BP 98/50
[2017-06-05] MEDS: METOPROLOL TARTRATE 25 MG TAB PO SCH ×2 (09:00→17:37)
[2017-06-05] MEDS: ASPIRIN 325 MG TAB PO SCH (09:04)
[2017-06-05 09:54] VITALS: BP 98/50
[2017-06-05 11:54] VITALS: BP 96/53
[2017-06-05] MEDS: EPOETIN ALFA 10000 UNIT/ML VIAL SC SCH (12:22)
--- NOTE | 2017-06-05 12:52 | Progress Note ---
DATE: June 05, 2017 CARDIOLOGY PROGRESS NOTE SUBJECTIVE: Patient reports she had an episode of chest pain overnight. She denies any shortness of breath. OBJECTIVE VITAL SIGNS: Temperature 98.9 degrees, pulse 76, respiratory rate 19, blood pressure 90/53. Oxygen saturation 95% on 3 L nasal cannula. GENERAL: Awake, alert, in no acute distress. LUNGS: Clear to auscultation bilaterally. No wheezes or crackles. CARDIOVASCULAR: Normal rate, regular rhythm. No murmur. Normal S1 and S2. ABDOMEN: Soft, nontender. EXTREMITIES: No edema. Status post left BKA. RIGHT GROIN: Without hematoma or bruit. Palpable femoral arterial pulse. CARDIAC MEDICATIONS 1. Aspirin 325 mg p.o. daily. 2. Metoprolol tartrate 25 mg p.o. b.i.d. LABS: Sodium 135, potassium 4, chloride 100, CO2 26, BUN 34, creatinine 4.15. Cardiac catheterization revealed 20% calcified left main stenosis with 50% proximal and mid lesions in the left anterior descending. The 1st diagonal was flush occluded at the origin from the left anterior descending with minimal thrombus. The circumflex was a small vessel. The right coronary artery was dominant with 50% stenosis in the mid. IMPRESSION 1. Ywt-PN-civmroyzb myocardial infarction. 2. Pneumonia. 3. Paroxysmal atrial fibrillation, currently sinus rhythm. 4. End-stage renal disease on dialysis. 5. Severe peripheral arterial disease. RECOMMENDATIONS: Medical therapy for coronary artery disease. No statin due to transaminitis. Will re-evaluate as an outpatient. Continue aspirin and beta blockade. Due to anemia, she is a poor candidate for anticoagulation. Further discussion as an outpatient. Thank you for this consult. We will continue to follow. Job#: [id number]
[2017-06-05] MEDS: LEVOFLOXACIN 250 MG TAB PO SCH (13:58)
--- NOTE | 2017-06-05 14:10 | Progress Note ---
INTERNAL MEDICINE PROGRESS NOTE SUBJECTIVE: Patient doing well. No significant complaints. PHYSICAL EXAM VITAL SIGNS: Last blood pressure was 123/53, temperature 96.4, heart rate 83 per minute, respiratory rate is 20 per minute, and oxygen saturation 94%. HEART: Regular rhythm. Normal S1, S2 sounds. LUNGS: Clear bilaterally. ABDOMEN: Soft. EXTREMITIES: Left below-knee amputation. LAB DATA: On the lab work, we have CBC with a white blood count 6.08, hemoglobin 8.3, hematocrit 26.3, and platelet count 94,000. On the BMP, sodium 133, potassium 4.2, chloride 101, CO2 of 19, BUN 58, creatinine 4.73, and glucose of 131. PT 14.0, INR 1.03, and PTT 45.5. AST 212, ALT 489, total bilirubin 0.3, alkaline phosphatase 81. FINAL IMPRESSION 1. Coronary artery disease status post non-ST segment elevation myocardial infarction, status post cardiac cath. 2. Lower pneumonia. 3. End-stage renal disease, on dialysis 3 times a week. 4. Hypertension with hypertensive nephropathy. 5. Uncontrolled diabetes mellitus type 2 with end-stage renal disease and diabetic neuropathy. 6. Anemia of chronic disease. 7. Elevated liver function test. PLAN OF TREATMENT: Continue albuterol q.6 hours. Monitor blood sugar before meals and at bedtime. Aspirin 325 mg daily. Gabapentin 300 mg q.6 hours. Morphine 15 mg q.6 hours as needed. Epogen 10,000 units on Saturday, Saturday, and Saturday. Levaquin 250 mg IV piggyback q.48 hours. Metoprolol 25 mg twice a day. We cannot use any statins because of elevated LFTs. We are going to continue the workup for elevated liver function test. Physical therapy. Job#: [id number] SAK
[2017-06-05 15:47] LABS: FERRITIN 13551.83 ng/mL (4.63-204.00)
[2017-06-05 16:00] VITALS: BP 104/51
[2017-06-05 20:00] VITALS: BP 101/54
[2017-06-06] VITALS (7 sets, daily range): BP systolic 93–141; BP diastolic 44–70
[2017-06-06] MEDS: GABAPENTIN 300 MG CAP PO SCH ×5 (00:45→23:34)
[2017-06-06] MEDS: IPRATROPIUM BROMIDE 0.02% 2.5 ML NEB NEB SCH ×4 (03:25→20:25)
[2017-06-06] MEDS: LEVALBUTEROL HCL SOLN NEBU 0.63 MG/3 ML NEB INH SCH ×4 (03:25→20:25)
[2017-06-06] MEDS: HYDROCODONE/APAP 7.5MG-325MG 1 EA TAB PO PRN ×2 (06:08→23:45)
[2017-06-06] MEDS: INSULIN REGULAR, HUMAN 100 UNIT/1 ML 3ML VIAL SQ SCH ×4 (07:30→20:29)
[2017-06-06 08:53] LABS: BASOPHILS % 0.3 % (0.0-1.0); EOSINOPHILS # (AUTO) 0.2 (0.0-0.4); EOSINOPHILS % 2.3 % (0.0-6.0); HEMATOCRIT 25.9 % (34.2-44.1); HEMOGLOBIN 8.1 g/dL (12.0-16.0); LYMPHOCYTES # (AUTO) 1.5 (1.0-3.2); LYMPHOCYTES % 19.1 % (18.0-39.1); MEAN CORPUSCULAR HEMOGLOBIN 31.2 pg (28-32); MEAN CORPUSCULAR HGB CONC 31.3 g/dL (31-35); MEAN CORPUSCULAR VOLUME 99.6 fL (81-99); MONOCYTES # (AUTO) 0.6 (0.2-0.8); MONOCYTES % 7.4 % (4.4-11.3); NEUTROPHILS # (AUTO) 5.4 (2.1-6.9); NEUTROPHILS % 69.9 % (38.7-80.0); PLATELET COUNT 129 x10e3/uL (140-360); RED CELL DISTRIBUTION WIDTH 18.6 % (11.7-14.4)
[2017-06-06] MEDS: METOPROLOL TARTRATE 25 MG TAB PO SCH ×2 (09:00→17:00)
[2017-06-06 09:01] LABS: ALBUMIN 2.5 g/dL (3.5-5.0); ALBUMIN/GLOBULIN RATIO 0.6 (0.8-2.0); ANION GAP 17.8 mmol/L (8-16); CALCIUM 8.1 mg/dL (8.4-10.2); CREATININE, SERUM 5.15 mg/dL (0.57-1.11); POTASSIUM 4.8 mmol/L (3.5-5.1)
--- NOTE | 2017-06-06 11:23 | Diagnostic Imaging Report ---
PROCEDURE:US GALLBLADDER COMPARISON:None. INDICATIONS:ABNORMAL LIVER ENZYMES TECHNIQUE: Eng-scale and color doppler transverse and longitudinal images of the right upper quadrant of the abdomen were obtained. FINDINGS: Liver: 19.1 cm in length in the right midclavicular line. Increased hepatic parenchymal echogenicity. No focal hepatic lesion. Main portal vein: One cm in caliber. Hepatopedal flow. Gallbladder: Echogenic sludge layers within the dependent portion of the gallbladder, which is hydropic, measuring 5.6 cm transversely. No wall thickening. Common Bile Duct: 0.4 cm in caliber. Sonographic Fish's sign: Reported as negative. Right kidney: 8.7 cm. increased renal cortical echogenicity. No solid masses or hydronephrosis. Pancreas: The visualized portions are unremarkable. Inferior vena cava: Patent Aorta: Non-aneurysmal proximally. Poorly visualized distally. Ascites: None in the right upper quadrant of the abdomen. CONCLUSION: Hydropic gallbladder contains sludge, without cholelithiasis or sonographic evidence of acute cholecystitis. Hepatomegaly with hepatic steatosis. Increased renal cortical echogenicity suggestive of medical renal disease. Dictated by: Yon Kaiser M.D. on 06/06/2017 at 11:31 Electronically approved by: Yon Kaiser M.D. on 06/06/2017 at 11:31
[2017-06-06] MEDS: ASPIRIN 325 MG TAB PO SCH (11:51)
--- NOTE | 2017-06-06 13:46 | Progress Note ---
DATE: June 06, 2017 CARDIOLOGY PROGRESS NOTE SUBJECTIVE: Patient denies chest pain or shortness of breath. Her main complaint is being sore. Physical therapy is in the room working with her. OBJECTIVE VITAL SIGNS: Temperature 98.9 degrees, pulse 83, respiratory rate 20, blood pressure 113/62. Oxygen saturation 94% on 3 L nasal cannula. GENERAL: Awake, alert, in no acute distress. LUNGS: Clear to auscultation bilaterally. No wheezes or crackles. CARDIOVASCULAR: Normal rate, regular rhythm. No murmur. Normal S1 and S2. ABDOMEN: Soft, nontender. EXTREMITIES: No edema. Status post left BKA. CARDIAC MEDICATIONS 1. Aspirin 325 mg p.o. daily. 2. Metoprolol tartrate 25 mg p.o. b.i.d. LABS: WBC 7.7, hemoglobin 8.1, hematocrit 25.9, platelets 129. Sodium 132, potassium 4.8, chloride 95, CO2 24, BUN 46, creatinine 5.15. AST 252, ALT 605. TELEMETRY: Normal sinus rhythm. IMPRESSION 1. Ckj-WS-adwnzgzpz myocardial infarction. 2. Pneumonia. 3. Paroxysmal atrial fibrillation, currently sinus rhythm. 4. End-stage renal disease on dialysis. 5. Severe peripheral arterial disease. RECOMMENDATIONS: Medical therapy for coronary artery disease. No statins due to transaminitis. Evaluation of transaminitis per primary service. If LFTs improve, can consider a trial of statin as an outpatient. Continue aspirin and beta blockade. Due to anemia, the patient is a poor candidate for anticoagulation. Further discussion as an outpatient. Thank you for this consult. We will continue to follow. Job#: [id number]
--- NOTE | 2017-06-06 14:13 | Progress Note ---
DATE: INTERNAL MEDICINE PROGRESS NOTE SUBJECTIVE: She is doing better today. She does not have any significant complaints today. PHYSICAL EXAMINATION HEART: Regular rhythm. Normal S1 and S2 sounds. LUNGS: Clear bilaterally. ABDOMEN: Soft. EXTREMITIES: No evidence of cyanosis, edema or trauma. She has a left below-knee amputation. FINAL IMPRESSION 1. Lobar pneumonia. 2. Coronary artery disease status post uub-GG-wrlwato-elevation myocardial fraction. 3. Chronic atrial fibrillation. 4. End-stage renal disease on dialysis. 5. Diabetes mellitus, type 2, with end-stage renal disease. 6. Elevated liver function tests. PLAN OF TREATMENT: Continue current medication regimen. Continue current IV antibiotics with Levaquin 250 mg IV piggyback q. 48 h. Continue workup for elevated liver function test. She had a cardiac cath which shows no significant coronary artery disease that requires any type of intervention at least. Patient will continue dialysis. We are going to continue monitoring liver function tests. Job#: [id number]
[2017-06-07 00:49] VITALS: BP 93/53
[2017-06-07] MEDS: LEVALBUTEROL HCL SOLN NEBU 0.63 MG/3 ML NEB INH SCH ×4 (03:00→19:30)
[2017-06-07] MEDS: IPRATROPIUM BROMIDE 0.02% 2.5 ML NEB NEB SCH ×4 (03:00→19:30)
[2017-06-07 04:57] LABS: ALBUMIN 2.8 g/dL (3.5-5.0); ALBUMIN/GLOBULIN RATIO 0.6 (0.8-2.0); ANION GAP 17.2 mmol/L (8-16); CALCIUM 8.3 mg/dL (8.4-10.2); CREATININE, SERUM 3.94 mg/dL (0.57-1.11); POTASSIUM 4.2 mmol/L (3.5-5.1)
[2017-06-07] MEDS: GABAPENTIN 300 MG CAP PO SCH ×3 (05:41→17:30)
[2017-06-07 06:01] VITALS: BP 108/68
[2017-06-07 07:51] VITALS: BP 145/62
[2017-06-07] MEDS: METOPROLOL TARTRATE 25 MG TAB PO SCH ×2 (09:00→17:00)
[2017-06-07] MEDS: ASPIRIN 325 MG TAB PO SCH (09:14)
[2017-06-07] MEDS: INSULIN REGULAR, HUMAN 100 UNIT/1 ML 3ML VIAL SQ SCH ×4 (09:22→20:26)
[2017-06-07] MEDS ORDERED: SINCALIDE 3 MCG/VIAL INJ ONE (09:51)
--- NOTE | 2017-06-07 13:29 | Progress Note ---
DATE: INTERNAL MEDICINE PROGRESS NOTE I came, and she is not in the room. She went for dialysis. FINAL IMPRESSION 1. Pneumonia. 2. End-stage renal disease on dialysis. 3. Uncontrolled diabetes mellitus, type 2, with end-stage renal disease. 4. Anemia of chronic disease. 5. Chronic systolic congestive heart failure. PLAN OF TREATMENT: Continue albuterol and Atrovent q.6 h. Continue with Levaquin 250 mg IV piggyback q.48 h. Continue aspirin 325 mg daily. Epogen 10,000 units on Saturday, Saturday and Saturday. Metoprolol 25 mg twice a day. Diabetic and renal diet. Monitor blood sugar a.c. and nightly. The liver function tests so far are slowly resolving. So far, the workup for hepatitis C is essentially unremarkable. We are waiting for the hepatitis profile. So far, ceruloplasmin has been normal. There is an elevated ferritin also, which might be because of chronic anemia the patient has. On the BMP, sodium 132, potassium 4.2, chloride 95. CO2 24, BUN 34, creatinine 3.94, glucose 164. CBC: White blood count 7.75, hemoglobin 8.1, hematocrit 25.9, platelet count 129,000. PT 14.0, INR 1.03, PTT 45.5. AST 91, ALT 430, total bilirubin 0.[address], [address] Alexandra is seeing her from the infectious disease point of view and Dr. Ventura Fitzpatrick from the gastroenterology point of view. Dr. Garrido is seeing her because the patient is on dialysis, and Dr. Vitale is seeing her from the cardiology point of view. Job#: [id number]
--- NOTE | 2017-06-07 13:39 | Progress Note ---
DATE: ADDENDUM TO THE INTERNAL MEDICINE PROGRESS NOTE She is back to her room. I saw her and did a physical exam. PHYSICAL EXAMINATION HEART: Regular rhythm. Normal S1, S2 sounds. LUNGS: Clear bilaterally. ABDOMEN: Soft. EXTREMITIES: No evidence of cyanosis, edema or trauma. FINAL IMPRESSION 1. Pneumonia. 2. Chronic atrial fibrillation. 3. Coronary artery disease, status post upg-NR-nxkpkqhvb myocardial infarction. 4. End-stage renal disease on dialysis. 5. Elevated liver function tests. PLAN OF TREATMENT: Continue monitoring liver function tests. We are going to wait for the HIDA scan. Continue IV Levaquin. Job#: [id number]
--- NOTE | 2017-06-07 16:05 | Progress Note ---
DATE: June 07, 2017 CARDIOLOGY PROGRESS NOTE SUBJECTIVE: The patient denies chest pain or shortness of breath. She went for HIDA scan today due to a finding of hydropic gallbladder on right upper extremity ultrasound. OBJECTIVE VITAL SIGNS: Temperature 96.5 degrees, pulse 84, respiratory rate 18, blood pressure 145/62, oxygen saturation 98% on 3 liters nasal cannula. GENERAL: Awake, alert, in no acute distress. LUNGS: Clear to auscultation bilaterally. No wheezes or crackles. CARDIOVASCULAR: Normal rate, regular rhythm. No murmur. Normal S1 and S2. ABDOMEN: Soft, nontender. EXTREMITIES: No edema. Status post left BKA. CARDIAC MEDICATIONS 1. Aspirin 325 mg p.o. daily. 2. Metoprolol tartrate 25 mg p.o. b.i.d. LABS: WBC 7.7, hemoglobin 8.1, hematocrit 25.9, platelets 129. Sodium 132, potassium 4.2, chloride 95, CO2 24, BUN 34, creatinine 3.94. AST is 91, ALT 430. IMPRESSION 1. Dbt-VJ-idtnkrxrc myocardial infarction. 2. Pneumonia. 3. Paroxysmal atrial fibrillation, currently sinus rhythm. 4. End-stage renal disease on dialysis. 5. Severe peripheral arterial disease. 6. Elevated liver function tests. RECOMMENDATIONS: Medical therapy for coronary artery disease. No statins at this time due to transaminitis. Currently undergoing evaluation by primary service. HIDA scan was done today. Report is not yet available. If LFTs improve, can consider a trial of statin as an outpatient. Continue current cardiac medications with aspirin and beta blockade otherwise. Due to anemia, patient is a poor candidate for anticoagulation. Further discussion as an outpatient. Thank you for this consult. We will continue to follow. Job#: [id number]
--- NOTE | 2017-06-07 16:42 | Diagnostic Imaging Report ---
Hepatobiliary Scan with Gallbladder Ejection Fraction Clinical information: 76 F with pneumonia and sepsis. Recent ultrasound report of hydropic gallbladder with gallbladder sludge but no stones and no signs of acute cholecystitis. Technique: Following intravenous administration of 6.2 millicuries of Tc-99m mebrofenin, dynamic images of the abdomen in the anterior projection were obtained through 30 minutes. Sincalide (CCK analog) 1.7 micrograms was administered intravenously over 30 minutes with additional imaging for determination of gallbladder ejection fraction. Discussion: Perfusion of the liver is normal. Extraction of tracer by the liver parenchyma is normal. Tracer appears promptly within the biliary tract. The gallbladder begins to fill at 12 minutes post injection of tracer and fills adequately. Tracer is seen in the small bowel during the sincalide infusion. There is no contractile response by the gallbladder to the pharmacologic dose of sincalide. No emptying of the gallbladder occurs during the 30 minute infusion. Impression: 1. Filling of the gallbladder excludes acute cystic duct obstruction/acute cholecystitis. 2. The gallbladder ejection fraction is undefined as there is no emptying of the gallbladder during the infusion of sincalide. This absence of a contractile response to sincalide supports the clinical diagnosis of chronic cholecystitis/gallbladder dyskinesia. Study could be repeated when patient is usual state of health. Systemic illness may be causing decreased response to the CCK analog. Signed by: Dr. Renate Kern M.D. on 06/07/2017 4:38 PM
[2017-06-07] MEDS: HYDROCODONE/APAP 7.5MG-325MG 1 EA TAB PO PRN (17:15)
[2017-06-07] MEDS: EPOETIN ALFA 10000 UNIT/ML VIAL SC SCH (17:18)
[2017-06-07] MEDS: LEVOFLOXACIN 250 MG TAB PO SCH (17:21)
[2017-06-07 20:00] VITALS: BP 117/66
[2017-06-08] VITALS (26 sets, daily range): BP systolic 82–149; BP diastolic 47–125
[2017-06-08] MEDS: LEVALBUTEROL HCL SOLN NEBU 0.63 MG/3 ML NEB INH SCH ×4 (01:00→19:00)
[2017-06-08] MEDS: IPRATROPIUM BROMIDE 0.02% 2.5 ML NEB NEB SCH ×4 (01:00→19:00)
[2017-06-08] MEDS: GABAPENTIN 300 MG CAP PO SCH ×4 (05:27→18:00)
[2017-06-08 06:26] LABS: BASOPHILS % 0.2 % (0.0-1.0); EOSINOPHILS # (AUTO) 0.2 (0.0-0.4); EOSINOPHILS % 1.9 % (0.0-6.0); HEMATOCRIT 25.7 % (34.2-44.1); LYMPHOCYTES % 10.3 % (18.0-39.1); MEAN CORPUSCULAR HGB CONC 31.1 g/dL (31-35); MEAN CORPUSCULAR VOLUME 99.6 fL (81-99); MONOCYTES # (AUTO) 0.8 (0.2-0.8); MONOCYTES % 7.7 % (4.4-11.3); NEUTROPHILS # (AUTO) 7.6 (2.1-6.9); PLATELET COUNT 159 x10e3/uL (140-360); RED BLOOD COUNT 2.58 x10e6/uL (3.6-5.1); RED CELL DISTRIBUTION WIDTH 18.7 % (11.7-14.4)
[2017-06-08 06:49] LABS: ALBUMIN 2.7 g/dL (3.5-5.0); ALBUMIN/GLOBULIN RATIO 0.7 (0.8-2.0); ANION GAP 17.8 mmol/L (8-16); CALCIUM 8.2 mg/dL (8.4-10.2); CREATININE, SERUM 4.74 mg/dL (0.57-1.11); POTASSIUM 3.8 mmol/L (3.5-5.1)
[2017-06-08] MEDS: INSULIN REGULAR, HUMAN 100 UNIT/1 ML 3ML VIAL SQ SCH ×3 (07:30→20:10)
[2017-06-08] MEDS ORDERED: SODIUM CHLORIDE 0.9% 250ML 250 ML IV ONE ×2 (07:45→20:30)
[2017-06-08] MEDS: ASPIRIN 325 MG TAB PO SCH (08:46)
[2017-06-08] MEDS: METOPROLOL TARTRATE 25 MG TAB PO SCH ×2 (08:46→17:00)
[2017-06-08] MEDS ORDERED: SODIUM CHLORIDE 0.9% 1000ML 2,000 ML ONE (09:12)
[2017-06-08] MEDS ORDERED: ALBUMIN HUMAN 12.5GM / 50ML IV PRN (09:15)
[2017-06-08] MEDS ORDERED: SODIUM CHLORIDE 0.9% 1000ML 2,000 ML IV PRN (09:15)
[2017-06-08] MEDS ORDERED: MANNITOL 25% 12.5GM/50 ML VIAL IV PRN (09:15)
[2017-06-08] MEDS ORDERED: SODIUM CHLORIDE 0.9% 250ML 500 ML IV PRN (09:15)
[2017-06-08] MEDS: HYDROCODONE/APAP 7.5MG-325MG 1 EA TAB PO PRN (13:20)
--- NOTE | 2017-06-08 16:56 | Progress Note ---
DATE: June 08, 2017 CARDIOLOGY PROGRESS NOTE SUBJECTIVE: No chest pain or shortness of breath. HIDA scan significant findings supporting chronic cholecystitis versus gallbladder dyskinesia. The patient has preserved left ventricular systolic function 50% to 55% on echocardiogram with severe CAD medically managed per angiographic report. OBJECTIVE VITAL SIGNS: Temperature 99.5, heart rate 84, respiratory rate 18, blood pressure 102/58, O2 sat 100% on nasal cannula. GENERAL: No acute distress. Alert and active. NECK: No JVD. CHEST: Clear to auscultation. CARDIOVASCULAR: Regular rate and rhythm. Normal S1 and S2. No S3, no S4. A holosystolic ejection murmur. ABDOMEN: Soft. EXTREMITIES: Trace edema. CARDIOVASCULAR MEDICATIONS: Aspirin 325 mg daily. Metoprolol tartrate 25 mg b.i.d.. TELEMETRY: Sinus rhythm. STUDIES: White blood cells 9.6, hemoglobin 8, platelets 159,000, PTT 45. Creatinine is 4.7. Potassium 3.8. Chloride 96, bicarbonate 24, BUN 48. Glucose 212. AST 31, ALT 266. ASSESSMENT: 1. Mgt-SL-dqokgokcd myocardial infarction in the setting of severe coronary artery disease with calcific 20% left main, proximal left anterior descending 50%, mid left anterior descending 50% calcified lesion. First diagonal flush occluded at the origin from the left anterior descending. Circumflex small vessel, right coronary artery dominant with mid 50% stenosis calcified. 2. Left ventricular systolic function of 50% and LVEDP 24, hypokinesis of anterolateral wall. On LV gram, no gradient across the aortic valve sounds. Cath operative report. 3. Pneumonia. 4. Paroxysmal atrial fibrillation currently in sinus rhythm. 5. Anemia. 6. Peripheral arterial disease, status post left below knee amputation. 7. Abnormal liver function test. PLAN: Currently statin on hold given abnormal LFTs. Not on long-term anticoagulation paroxysmal atrial fibrillation given anemia. Workup advised. On antibiotic coverage for pneumonia. Continue aspirin and metoprolol. Job#: [id number]
[2017-06-08 18:12] LABS: ABG HCO3 29 mmol/L (23-28); ABG PCO2 44 mmHg (41-51); ABG PH 7.43 (7.31-7.41); ABG PO2 239 mmHg (80-105)
--- NOTE | 2017-06-08 18:15 | Diagnostic Imaging Report ---
EXAMINATION: Chest, CHEST SINGLE (PORTABLE) INDICATION: Chest pain COMPARISON: Portable chest 06/03/2017 FINDINGS: LINES: Endotracheal catheter is present with the tip projecting over the expected region of the trachea, positioned 4 cm from the darrian. Right internal jugular temporary central venous catheter with tip projecting over the expected region of the superior vena cava. Heart: Normal cardiac silhouette. Vascular: The pulmonary vasculature is within normal limits. Atherosclerotic calcifications of the aortic arch. Mediastinum: No mediastinal, hilar, or axillary mass or lymphadenopathy. Lungs: No parenchymal mass. Bilateral multifocal airspace opacifications. Pleura: Small bilateral pleural effusions. No pneumothorax. Bones: No acute osseous abnormality. Degenerative changes of the thoracic spine. Soft tissues: Normal. Impression: Bilateral multifocal airspace opacifications may represent edema or pneumonia. Signed by: Dr. Angelo Rebolledo M.D. on 06/08/2017 6:11 PM
[2017-06-08 20:06] LABS: BASOPHILS % 0.2 % (0.0-1.0); EOSINOPHILS % 0.3 % (0.0-6.0); HEMATOCRIT 25.2 % (34.2-44.1); LYMPHOCYTES # (AUTO) 0.5 (1.0-3.2); LYMPHOCYTES % 4.2 % (18.0-39.1); MEAN CORPUSCULAR HGB CONC 31.7 g/dL (31-35); MEAN CORPUSCULAR VOLUME 97.7 fL (81-99); MONOCYTES # (AUTO) 0.7 (0.2-0.8); MONOCYTES % 6.3 % (4.4-11.3); NEUTROPHILS # (AUTO) 9.8 (2.1-6.9); NEUTROPHILS % 87.9 % (38.7-80.0); PLATELET COUNT 135 x10e3/uL (140-360); RED BLOOD COUNT 2.58 x10e6/uL (3.6-5.1); RED CELL DISTRIBUTION WIDTH 18.4 % (11.7-14.4)
--- NOTE | 2017-06-08 22:18 | Diagnostic Imaging Report ---
EXAM: ABDOMEN-1VIEW (KUB) DATE: 06/08/2017 8:29 PM Time stamp on exam: 2158 hours INDICATION: Abdominal pain COMPARISON: None FINDINGS: LINES/TUBES: None BOWEL PATTERN: No evidence for obstruction. Paucity of gas in the lower abdomen SOFT TISSUES: No abnormal calcifications. No mass effect. LUNG BASES: Not included BONES: Degenerative changes of the thoracolumbar spine IMPRESSION: Nonobstructive bowel gas pattern Signed by: Dr. Darnell Thomas M.D. on 06/08/2017 10:14 PM
[2017-06-08] MEDS ORDERED: AMIODARONE HCL 150MG 100 ML IV PRN (23:15)
[2017-06-08] MEDS ORDERED: AMIODARONE HCL 100 ML IV ONE (23:23)
[2017-06-08] MEDS ORDERED: AMIODARONE 900MG 500 ML IV ONE (23:23)
[2017-06-08 23:41] LABS: ALBUMIN 2.7 g/dL (3.5-5.0); ALBUMIN/GLOBULIN RATIO 0.8 (0.8-2.0); ANION GAP 14.9 mmol/L (8-16); CREATININE, SERUM 3.72 mg/dL (0.57-1.11); POTASSIUM 3.9 mmol/L (3.5-5.1)
[2017-06-08] MEDS ORDERED: SODIUM CHLORIDE 0.9% 1000ML 1,000 ML IV ONE (23:58)
[2017-06-09] VITALS (94 sets, daily range): BP systolic 59–152; BP diastolic 42–110
[2017-06-09] MEDS ORDERED: SODIUM CHLORIDE 0.9% 1000ML 1,000 ML IV ONE
[2017-06-09] MEDS ORDERED: AMIODARONE 900MG 500 ML IV SCH (00:30)
[2017-06-09 00:50] LABS: PHOSPHORUS 3.8 MG/DL (2.3-4.7)
[2017-06-09] MEDS: LEVALBUTEROL HCL SOLN NEBU 0.63 MG/3 ML NEB INH SCH ×4 (01:00→18:58)
[2017-06-09] MEDS: IPRATROPIUM BROMIDE 0.02% 2.5 ML NEB NEB SCH ×4 (01:00→18:58)
[2017-06-09 01:03] LABS: BASOPHILS % 0.2 % (0.0-1.0); EOSINOPHILS % 0.2 % (0.0-6.0); HEMATOCRIT 25.9 % (34.2-44.1); HEMOGLOBIN 8.3 g/dL (12.0-16.0); LYMPHOCYTES # (AUTO) 1.1 (1.0-3.2); LYMPHOCYTES % 12.2 % (18.0-39.1); MEAN CORPUSCULAR HEMOGLOBIN 30.9 pg (28-32); MEAN CORPUSCULAR VOLUME 96.3 fL (81-99); MONOCYTES # (AUTO) 0.6 (0.2-0.8); MONOCYTES % 6.8 % (4.4-11.3); NEUTROPHILS # (AUTO) 7.3 (2.1-6.9); NEUTROPHILS % 79.9 % (38.7-80.0); PLATELET COUNT 139 x10e3/uL (140-360); RED BLOOD COUNT 2.69 x10e6/uL (3.6-5.1); RED CELL DISTRIBUTION WIDTH 18.7 % (11.7-14.4)
[2017-06-09 01:14] LABS: ALBUMIN 2.7 g/dL (3.5-5.0); ALBUMIN/GLOBULIN RATIO 0.8 (0.8-2.0); ANION GAP 16.1 mmol/L (8-16); CALCIUM 7.9 mg/dL (8.4-10.2); CREATININE, SERUM 3.6 mg/dL (0.57-1.11); POTASSIUM 4.1 mmol/L (3.5-5.1)
[2017-06-09] MEDS: FENTANYL CITRATE/PF 100MCG/2 ML INJ IV PRN (01:20)
[2017-06-09] MEDS: VANCOMYCIN 1GM/NS 250 ML 250 ML IV SCH ×2 (01:25→12:45)
[2017-06-09] MEDS ORDERED: ASPIRIN 81 MG CHEW TAB PO ONE (02:00)
[2017-06-09] MEDS ORDERED: HEPARIN 25,000 UNIT/D5W 250ML 250 ML IV PRN ×2 (02:00→07:00)
[2017-06-09] MEDS: GABAPENTIN 300 MG CAP PO SCH ×4 (03:00→17:47)
[2017-06-09] MEDS: MIDAZOLAM HCL 2 MG/2 ML VIAL IV PRN (03:20)
[2017-06-09] MEDS ORDERED: NOREPINEPHRINE BITARTRATE/ NS 250 ML IV PRN (05:15)
[2017-06-09] MEDS: CEFEPIME HCL 1 GM VIAL IV SCH ×2 (05:30→14:43)
[2017-06-09 05:43] LABS: BASOPHILS % 0.2 % (0.0-1.0); EOSINOPHILS # (AUTO) 0.1 (0.0-0.4); HEMATOCRIT 24.5 % (34.2-44.1); LYMPHOCYTES # (AUTO) 1.3 (1.0-3.2); LYMPHOCYTES % 16.1 % (18.0-39.1); MEAN CORPUSCULAR HEMOGLOBIN 31.1 pg (28-32); MEAN CORPUSCULAR HGB CONC 31.8 g/dL (31-35); MEAN CORPUSCULAR VOLUME 97.6 fL (81-99); MONOCYTES # (AUTO) 0.7 (0.2-0.8); NEUTROPHILS % 73.7 % (38.7-80.0); PLATELET COUNT 130 x10e3/uL (140-360); RED BLOOD COUNT 2.51 x10e6/uL (3.6-5.1); RED CELL DISTRIBUTION WIDTH 18.9 % (11.7-14.4)
[2017-06-09 05:44] LABS: HEMOGLOBIN 7.8 g/dL (12.0-16.0)
[2017-06-09 06:02] LABS: ALBUMIN 2.5 g/dL (3.5-5.0); ALBUMIN/GLOBULIN RATIO 0.8 (0.8-2.0); ANION GAP 14.8 mmol/L (8-16); CALCIUM 7.4 mg/dL (8.4-10.2); CREATININE, SERUM 3.63 mg/dL (0.57-1.11); POTASSIUM 3.8 mmol/L (3.5-5.1)
[2017-06-09] MEDS: HYDROCODONE/APAP 7.5MG-325MG 1 EA TAB PO PRN ×3 (06:44→17:48)
[2017-06-09] MEDS: INSULIN REGULAR, HUMAN 100 UNIT/1 ML 3ML VIAL SQ SCH ×4 (07:30→21:00)
--- NOTE | 2017-06-09 07:45 | Diagnostic Imaging Report ---
EXAMINATION: CHEST SINGLE (PORTABLE) INDICATION: Respiratory failure. Pneumonia. COMPARISON: Chest x-ray 06/08/2017. FINDINGS: AP view TUBES and LINES: Endotracheal tube with tip roughly 4 cm above the darrian. Right IJ central line with tip projecting over mid SVC. Nasogastric tube in the stomach. LUNGS: Lungs are not well inflated. No significant change in multifocal airspace opacities especially in the left lung base. There is perihilar interstitial opacities, consistent with interstitial edema. PLEURA: Small bilateral pleural effusions. No pneumothorax. HEART AND MEDIASTINUM: Cardiac size is severely enlarged. There are atherosclerotic calcifications within the aorta. BONES AND SOFT TISSUES: No acute osseous lesion. Soft tissues are unremarkable. UPPER ABDOMEN: No free air under the diaphragm. IMPRESSION: Overall no significant change in multifocal airspace opacities, likely pneumonia superimposed on interstitial edema. Signed by: Dr. Luis Manuel Emamnuel M.D. on 06/09/2017 7:41 AM
[2017-06-09] MEDS: METOPROLOL TARTRATE 25 MG TAB PO SCH ×2 (09:00→16:56)
[2017-06-09] MEDS: ASPIRIN 325 MG TAB PO SCH (09:30)
--- NOTE | 2017-06-09 13:13 | Progress Note ---
DATE: June 08, 2017 INTERNAL MEDICINE PROGRESS NOTE SUBJECTIVE: She is sleeping, no significant complaints today. PHYSICAL EXAM: VITAL SIGNS: Blood pressure 105/57. Temperature 99.1, heart rate 79 per minute, respiratory rate is 18 per minute. Oxygen saturation 98%. HEART: Regular rhythm. Normal S1 S2, no extra sounds. LUNGS: Clear bilaterally. ABDOMEN: Soft. EXTREMITIES: Show below-knee amputation left lower extremity. BLOOD WORK: We have BMP sodium 134, potassium 3.8, chloride 96, CO2 24, BUN 48, creatinine 4.74, glucose 88. On the CBC white blood count 9.68, hemoglobin 8.0, hematocrit 25.7, platelet count 159,000. PT 14.0. INR 1.03. PTT 45.5. AST 31, alkaline phosphatase of 78. ALT 266, total bilirubin 0.4. FINAL IMPRESSION: 1. Pneumonia. 2. End-stage disease on dialysis. 3. 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 4. Chronic systolic congestive heart failure. 5. Anemia of chronic disease secondary to chronic renal failure. 6. Peripheral vascular disease, status post left below-knee amputation. PLAN OF TREATMENT: Continue Xopenex q.6 hour. Continue albuterol q.6 h. Continue with Epogen 1000 units Saturday, Saturday and Saturday on dialysis days. Continue Sully 1 tablet q.6 h. as needed for pain. Metoprolol 25 mg twice a day. Continue monitoring blood sugar a.c. and nightly. Treat with aspirin 325 mg daily. Continue gabapentin 300 mg q.6 hours and Levaquin 250 mg IV q.8 hours. Going to continue monitoring liver function test which have improved significantly. Job#: [id number]
[2017-06-09] MEDS: LEVOFLOXACIN 250 MG TAB PO SCH (14:43)
[2017-06-09] MEDS: HEPARIN 25,000U/0.45% NS 250ML 800 UNIT in SODIUM CHLORIDE 0.9% 250ML 0 ML IV SCH (14:43)
[2017-06-10] VITALS (101 sets, daily range): BP systolic 91–177; BP diastolic 38–126
--- NOTE | 2017-06-10 01:45 | Consultation ---
DATE OF CONSULTATION: June 08, 2017 PULMONARY/CRITICAL CARE CONSULT REFERRING PHYSICIAN: Dr. Winkler REASON FOR REFERRAL: Respiratory failure, cardiac arrest. HISTORY: Ms. Cox is a pleasant 76-year-old female with acute respiratory failure. Patient was admitted on May 30, 2017. She is well known to me from previous encounters. She has multiple cardiovascular and peripheral vascular disease and has recently been placed on end-stage renal disease status and is on dialysis. She was having some malaise with chest pains and shortness of breath and possible fevers recently. Patient was in usual state where chest x-rays have not shown definite improvement and patient was having dialysis today. Overall during dialysis, she developed some bradycardia. She had negative net fluid balance of zero. However, they could not give her back her blood at the end of the procedure due to line dysfunction. Patient had initial asystole after what may have been the bradycardia that degenerated to some wide-complex tachycardia. When she was in asystole, the compressions were starting at that point and she had return of spontaneous circulation 60 minutes later. Patient was intubated. Her hypotension improved and she is not on pressor still. She is following commands on moderate stimuli usually pain, she will open her eyes and use her upper arm. PAST MEDICAL HISTORY: Diabetes, end-stage renal disease, peripheral artery disease, status post stent and multiple vascular procedures at outside hospital, BKA left leg, right toe amputations. MEDICATIONS: Medication list reviewed per electronic record. At this point, Levaquin antibiotic is ongoing. ALLERGIES: TO TETANUS AND PENICILLIN. SOCIAL HISTORY: Lives at home with her . Two children are often close by and work in healthcare. No alcohol, no drugs. Former smoker, but quit several years ago. FAMILY HISTORY: Noncontributory. REVIEW OF SYSTEMS: Cannot get as she is intubated. OBJECTIVE: VITAL SIGNS: Afebrile, vitals signs noted per electronic record. GENERAL: In no acute distress, although she is little bit somnolent and it takes moderate stimuli to awaken her. Orally intubated. HEENT: Normocephalic, atraumatic. NECK: Supple. Throat midline. LUNGS: Bilateral air entry is limited, limited effort as she is on ventilator, no rales. CARDIOVASCULAR: S1 and S2. No murmurs, rubs, or gallops. ABDOMEN: Soft, nontender. EXTREMITIES: No clubbing, no cyanosis, there is trace edema and some stasis changes to lower extremities. INTEGUMENT: Showing healing right toe. LABS: 3.8 potassium, 48 BUN, 4.7 creatinine. 10 white count, 25 hematocrit, 159,000 platelets. 7.43 pH after the arrest. Chest x-ray showed bilateral multifocal airspace opacifications. IMPRESSION AND PLAN: 1. Acute respiratory failure. 2. Borderline hypotension, improved. 3. Chronic pulmonary opacities, possible chronic interstitial lung disease. 4. Chronic pulmonary opacities, possible chronic fluid overload. B-type natriuretic peptide 2023. 5. End-stage renal disease. 6. Treat for infectious pneumonia. 7. Status post cardiac arrest. 8. Peripheral vascular disease, severe. 9. Coronary artery disease. 10. Diabetes. 11. Debility, baseline weakness. Continue aggressive stabilization. Patient will need electrolytes repleted to high normal or at least normal for today noting she is a dialysis patient. Continue efforts to stabilize her heart. Patient requires repeat blood work to check her anemia. Neurologically, she has good prognosis based on initial examinations of following commands. nonspecific abdominal pain. Sedation if needed for stability. Greater than 30 minutes in direct care today, multiple evaluation and coordination with nursing. I have discussed the plan at length with staff. Thank you very much, Dr. Winkler and Dr. Luna for allowing me the chance to participate in the care of Ms. Cox. Do not hesitate to contact me if I can help in any way. Job#: [id number]
[2017-06-10] MEDS: MIDAZOLAM HCL 2 MG/2 ML VIAL IV PRN ×2 (02:00→10:19)
[2017-06-10] MEDS: LEVALBUTEROL HCL SOLN NEBU 0.63 MG/3 ML NEB INH SCH ×4 (02:45→20:52)
[2017-06-10] MEDS: IPRATROPIUM BROMIDE 0.02% 2.5 ML NEB NEB SCH ×4 (02:45→20:52)
[2017-06-10] MEDS: INSULIN REGULAR, HUMAN 100 UNIT/1 ML 3ML VIAL SQ SCH ×4 (06:00→17:24)
[2017-06-10 06:18] LABS: ANION GAP 17.5 mmol/L (8-16); CALCIUM 7.7 mg/dL (8.4-10.2); CREATININE, SERUM 3.87 mg/dL (0.57-1.11); POTASSIUM 3.5 mmol/L (3.5-5.1)
[2017-06-10] MEDS ORDERED: AMIODARONE 900MG 500 ML IV SCH (06:30)
[2017-06-10 06:51] LABS: BASOPHILS % 0.4 % (0.0-1.0); EOSINOPHILS # (AUTO) 0.2 (0.0-0.4); EOSINOPHILS % 2.1 % (0.0-6.0); HEMATOCRIT 29.5 % (34.2-44.1); HEMOGLOBIN 9.2 g/dL (12.0-16.0); LYMPHOCYTES # (AUTO) 1.4 (1.0-3.2); LYMPHOCYTES % 13.2 % (18.0-39.1); MEAN CORPUSCULAR HEMOGLOBIN 31.1 pg (28-32); MEAN CORPUSCULAR HGB CONC 31.2 g/dL (31-35); MEAN CORPUSCULAR VOLUME 99.7 fL (81-99); MONOCYTES # (AUTO) 0.8 (0.2-0.8); MONOCYTES % 7.1 % (4.4-11.3); NEUTROPHILS # (AUTO) 8.3 (2.1-6.9); NEUTROPHILS % 76.2 % (38.7-80.0); PLATELET COUNT 153 x10e3/uL (140-360); RED BLOOD COUNT 2.96 x10e6/uL (3.6-5.1); RED CELL DISTRIBUTION WIDTH 18.9 % (11.7-14.4)
--- NOTE | 2017-06-10 07:02 | Diagnostic Imaging Report ---
EXAMINATION: CHEST SINGLE (PORTABLE) INDICATION: Respiratory failure COMPARISON: 06/09/2017 FINDINGS: TUBES and LINES: Endotracheal, nasogastric tubes and right IJ central line catheter is stable. LUNGS: Lungs are not well inflated. There are bibasilar atelectasis. There is perihilar interstitial opacities, consistent with interstitial edema. PLEURA: No pleural effusion or pneumothorax. HEART AND MEDIASTINUM: Cardiac size is moderately enlarged. There are atherosclerotic calcifications within the aorta. BONES AND SOFT TISSUES: No acute osseous lesion. Soft tissues are unremarkable. UPPER ABDOMEN: No free air under the diaphragm. IMPRESSION: Moderate cardiogenic pulmonary edema. Signed by: Dr. Darnell Thomas M.D. on 06/10/2017 6:59 AM
[2017-06-10] MEDS: GABAPENTIN 300 MG CAP PO SCH ×2 (08:24→15:00)
[2017-06-10] MEDS: AMIODARONE HCL 200 MG TAB PO SCH ×2 (08:24→16:55)
[2017-06-10] MEDS: ASPIRIN 325 MG TAB PO SCH ×3 (08:24→08:32)
[2017-06-10] MEDS: METOPROLOL TARTRATE 25 MG TAB PO SCH ×2 (08:24→16:55)
--- NOTE | 2017-06-10 09:42 | Consultation ---
DATE OF CONSULTATION: June 09, 2017 REQUESTING PHYSICIAN: Dr. Lagos REASON FOR CONSULTATION: Evaluation of patient with cardiac arrest. CHIEF COMPLAINT: Loss of consciousness. Ms. Cox is a 76-year-old woman with a known history of peripheral vascular disease, known history of [id number] myocardial infarction with a recent heart catheterization performed by Dr. Vitale but with no revascularization planned. Also, has a below-knee amputation in the left leg and came to the emergency room with shortness of breath, chest pain and suspicion for pneumonia. The patient has end-stage disease on dialysis and during dialysis lost consciousness and was noted to have some shakes and had her eyes roll back. During the event on telemetry, it was noted that she had what was suspected to be polymorphic ventricular tachycardia, which degenerated into asystole. The patient had CPR performed, was intubated, and eventually regained her pulse. She has been intubated since then, but she is neurologically intact. PAST MEDICAL HISTORY: Significant for diabetes, end-stage renal disease, peripheral vascular disease, and below-knee amputation. ALLERGIES: SHE IS ALLERGIC TO PENICILLIN AND TETANUS. SOCIAL HISTORY: Negative for tobacco, alcohol, or drug use currently. She has a history of tobacco use in the past. REVIEW OF SYSTEMS: Unable to be obtained because of intubation. PHYSICAL EXAMINATION VITALS: Blood pressure is 110/70, heart rate currently 70, respiratory rate 14, O2 saturation 100% on FiO2 of 40%. GENERAL: She is intubated and sedated. CARDIOVASCULAR: S1 and S2 audible. Regular rate and rhythm is noted without murmurs, rubs or gallops. LUNGS: Decreased breath sounds in the bases bilaterally. GI: Abdomen is soft, nondistended and nontender. Bowel sounds are heard in all 4 quadrants. EXTREMITIES: She has a left below-knee amputation, but no other peripheral pulses are elicitable. No edema is noted. Laboratory studies were reviewed. Currently, her most recent echocardiogram shows an ejection fraction of 55%. Again, telemetry shows an episode of suspected wide-complex tachycardia, polymorphic VT that degenerated into VT. On careful inspection, it is difficult to say whether the polymorphic VT is true or artifactual and whether the patient went into significant bradycardia and eventually into asystole. However, given the history of relatively recent [id number] myocardial infarction and also significant coronary disease and the fact that the event preceded an episode of asystole, I would strongly favor that this would be polymorphic VT prior to the episode of asystole. I discussed with the family at great lengths the possibility of a defibrillator or pacemaker as a secondary prevention device in the prevention of another cardiac arrest event. They understand and are agreeable with the plan. We will wait for her to be extubated so we can discuss with the patient and the patient's family about potential ICD implantation later in the week. I discussed with Dr. Lagos at great length. He agrees with the plan. We will consider ICD implant later this week. Job#: [id number]
[2017-06-10] MEDS ORDERED: OXYMETAZOLINE HCL 0.05% NAS 1 SPRAY BTL ONE (09:43)
[2017-06-10] MEDS ORDERED: LIDOCAINE HCL 4% 50 ML BTL ONE (09:43)
[2017-06-10] MEDS ORDERED: LIDOCAINE JELLY 2% 10ML URO-JET ONE (09:43)
--- NOTE | 2017-06-10 10:29 | Progress Note ---
DATE: June 09, 2017 PULMONARY MEDICINE/CRITICAL CARE MEDICINE PROGRESS NOTE SUBJECTIVE: Ms. Cox was seen and examined at bedside. She seemed to be following commands and vigorously moving her extremities. Chest x-ray continued to look about the same with moderate to large size opacities. Amiodarone IV was started and heparin IV after discussion with cardiology yesterday. Had 3.8 L in, 0.05 L out. García in place with little output. Levophed was transiently started and increased to 2 mcg, but now she is off. REVIEW OF SYSTEMS: Cannot get as she is on ventilator. OBJECTIVE VITALS: Afebrile, vitals signs noted per electronic record. GENERAL: Better color today, moving good, follows commands. LUNGS: Bilateral air entry, a few rhonchi bilaterally. ABDOMEN: Still with some pain, but she does not let us physically examine her today. LABS: 3.8 potassium, 3.6 creatinine, 8.1 white count, hematocrit 25. IMPRESSION AND PLAN 1. Status post 6-minute asystolic cardiac arrest. 2. Baseline coronary artery disease. 3. Peripheral vascular disease. 4. Diabetes. 5. End-stage renal disease. 6. Acute respiratory failure, post arrest. 7. Chronic pneumonitis. 8. Chronic fluid overload. 9. Shock, distributive, improved. At this time, continue current treatment. Will check ultrasound of the chest and see if there is any sizable pleural effusion that can be drained anytime soon. Tentatively, we will see about scheduling bronchoscopy while she has the tube in place. Afterwards, we will try to see if she is extubatable. The patient will have feeds started. Medicines were reviewed. Avoid QT-prolonging agents. Amiodarone and heparin on per cardiology. EP consult was called in. Greater than 30 minutes of direct care today, multiple evaluations and coordination. Job#: [id number]
[2017-06-10] MEDS: FENTANYL CITRATE/PF 100MCG/2 ML INJ IV PRN (10:30)
--- NOTE | 2017-06-10 11:32 | Progress Note ---
DATE: June 09, 2017 CARDIOLOGY PROGRESS NOTE SUBJECTIVE: Status post cardiac arrest last night with history of concerning for worsening bradycardia coupled with strip ventricular tachycardia than asystole. EP has been consulted to assist in the case. Patient will likely need defibrillator, intubated and sedated currently. In sinus rhythm now. OBJECTIVE VITAL SIGNS: Temperature 97.3, heart rate 61, respiratory rate 19, blood pressure 115/47, O2 sat 100% on vent support. GENERAL: Intubated, sedated. CHEST: Decreased breath sounds. CARDIOVASCULAR: Regular rate and rhythm. Normal S1 and S2. ABDOMEN: Soft. EXTREMITIES: Trace edema. CARDIOVASCULAR MEDICATIONS 1. Amiodarone IV drip. 2. Aspirin 325 mg daily. 3. Heparin IV, occult blood negative, see below H and H. 4. Metoprolol 25 mg b.i.d. STUDIES: Hemoglobin 7.8, white blood cells 8.1, platelets are 130. Creatinine 3.6, potassium 3.8, chloride 103, bicarbonate 22. AST 23, ALT 151, serial troponins 0.58, then 0.62, then 0.64. TELEMETRY: Sinus rhythm. ASSESSMENT 1. Non-ST elevation myocardial infarction with first diagonal flush occluded in origin of left anterior descending and diagonal with some thrombus. On cardiac catheterization, otherwise moderate rate of other coronary vessels. 2. Status post cardiac supraventricular tachycardia. 3. Pneumonia. 4. Paroxysmal atrial fibrillation, currently in sinus rhythm. 5. Anemia. 6. PAD, status post left BKA. 7. Abdominal LFTs. 8. Abnormal liver function tests. RECOMMENDATIONS: Continue current cardiovascular medications. Appreciate EP input. Monitor Pily and H. Job#: [id number] ROMAIN
--- NOTE | 2017-06-10 11:38 | Diagnostic Imaging Report ---
EXAMINATION: CHEST SINGLE (PORTABLE) INDICATION: \S\mucous plugs \[id number] \S\[id number] COMPARISON: Same day at 5:42 AM FINDINGS: AP view TUBES and LINES: Endotracheal tube, nasogastric tube, and right internal jugular central line are stable. Another line extending down inferior to the diaphragms may be external to patient. An enteric tube overlying the left lung base is also probably external. LUNGS: Moderate to severe pulmonary edema. PLEURA: Bilateral pleural effusions, left more than right. HEART AND MEDIASTINUM: Enlarged cardiomediastinal silhouette. Aorta is calcified and tortuous. BONES AND SOFT TISSUES: No acute osseous lesion. Soft tissues are unremarkable. UPPER ABDOMEN: No free air under the diaphragm. IMPRESSION: Enlarged cardiomediastinal silhouette, moderate to severe pulmonary edema, and bilateral pleural effusions, not significantly changed from prior exam. Underlying infiltrate cannot be excluded. Signed by: Dr. Emmett Ley MD on 06/10/2017 11:34 AM
[2017-06-10] MEDS: VANCOMYCIN 1GM/NS 250 ML 250 ML IV SCH (15:00)
[2017-06-10] MEDS: HEPARIN 25,000U/0.45% NS 250ML 800 UNIT in SODIUM CHLORIDE 0.9% 250ML 0 ML IV SCH (15:04)
[2017-06-10] MEDS: EPOETIN ALFA 10000 UNIT/ML VIAL SC SCH (15:11)
[2017-06-10] MEDS: CEFEPIME HCL 1 GM VIAL IV SCH (15:11)
[2017-06-10 16:15] LABS: BODY FLUID TYPE PLEURAL
[2017-06-10 16:16] LABS: BODY FLUID APPEARANCE SL.CLOUDY; BODY FLUID COLOR RED
[2017-06-10 16:17] LABS: RBC,BODY FLUID 1277 cells/uL; WBC,BODY FLUID 43 cells/uL
[2017-06-10] MEDS: BALSAM PERU/CASTOR OIL 60 GM OINT...G. TP SCH (16:55)
[2017-06-10 17:14] LABS: LYMPHOCYTES,BODY FLUID 10 %; MONO/MACROPHG,BODY FLUID 18 %; NEUTROPHILS,BODY FLUID 72 %
--- NOTE | 2017-06-10 17:19 | Diagnostic Imaging Report ---
PROCEDURE:US CHEST (INCL MEDIASTINUM) COMPARISON:Chest x-ray dated 06/10/17 INDICATIONS:PLEURAL EFFUSIONS FINDINGS: See conclusion. CONCLUSION: No significant pleural effusion visualized. Dictated by: Emmett Ley M.D. on 06/10/2017 at 17:28 Electronically approved by: Emmett Ley M.D. on 06/10/2017 at 17:28
[2017-06-10] MEDS ORDERED: SODIUM BICARBONATE 8.4% INJ 50 ML SYR ONE (18:25)
[2017-06-10] MEDS ORDERED: EPINEPHRINE HCL SYRINGE ONE (18:25)
[2017-06-10] MEDS ORDERED: ATROPINE SULFATE 0.1 MG/ML 10ML SYR ONE (18:25)
[2017-06-10] MEDS ORDERED: ETOMIDATE 2 MG/ML 10 ML INJ IV ONE (18:28)
[2017-06-10] MEDS ORDERED: SUCCINYLCHOLINE 200 MG/10 ML SYR ONE (18:28)
--- NOTE | 2017-06-10 19:28 | Progress Note ---
DATE: June 10, 2017 CARDIOLOGY PROGRESS NOTE SUBJECTIVE: The patient remains intubated; however, she is awake and following commands. She denies chest pain or shortness of breath. She had bronchoscopy done earlier today with cultures sent. OBJECTIVE VITAL SIGNS: Temperature 99.2 degrees, pulse 62, respiratory rate 16, blood pressure 136/71, oxygen saturation 99% on mechanical ventilation. GENERAL: Awake, alert, in no acute distress. Still intubated. LUNGS: Clear to auscultation bilaterally. No wheezes or crackles. CARDIOVASCULAR: Normal rate, regular rhythm. No murmur. Normal S1 and S2. ABDOMEN: Soft. EXTREMITIES: Trace edema. CARDIAC MEDICATIONS 1. Amiodarone 40 mg p.o. b.i.d. 2. Metoprolol tartrate 25 mg p.o. b.i.d. 3. Aspirin 325 mg p.o. daily. LABS: WBC 10.8, hemoglobin 9.2, hematocrit 29.5, platelets 153,000, sodium 137, potassium 3.5, chloride 105, CO2 of 18, BUN 37, creatinine 3.87, troponin 0.390. TELEMETRY: Normal sinus rhythm. IMPRESSION 1. Lzu-EA-oyemmbqyu myocardial infarction with first diagonal flush occlusion. Moderate coronary artery disease of the left anterior descending and right coronary artery. 2. Status post cardiac arrest with strips concerning for ventricular tachycardia. 3. Pneumonia. 4. Paroxysmal atrial fibrillation, currently sinus rhythm. 5. Anemia. 6. Peripheral arterial disease status post left below-knee amputation. 7. Abnormal liver function test. 8. End-stage renal disease on dialysis. RECOMMENDATIONS: Continue current cardiac medications. No statins due to transaminitis. However, LFTs have normalized and HIDA scan suggested chronic cholecystitis and gallbladder dyskinesia. Can consider trial of statin as an outpatient if LFTs remain normal. Appreciate EP assistance. Once the patient is extubated, plan for defibrillator for secondary prevention. Ventilator management per pulmonary. Thank you for this consult. We will continue to follow. Job#: [id number]
[2017-06-11] VITALS (65 sets, daily range): BP systolic 65–142; BP diastolic 33–99
[2017-06-11] MEDS: FENTANYL CITRATE/PF 100MCG/2 ML INJ IV PRN ×2 (00:45→05:35)
[2017-06-11] MEDS: MIDAZOLAM HCL 2 MG/2 ML VIAL IV PRN (00:45)
[2017-06-11] MEDS: IPRATROPIUM BROMIDE 0.02% 2.5 ML NEB NEB SCH ×4 (02:13→18:45)
[2017-06-11] MEDS: LEVALBUTEROL HCL SOLN NEBU 0.63 MG/3 ML NEB INH SCH ×4 (02:13→18:45)
--- NOTE | 2017-06-11 05:23 | Progress Note ---
DATE: June 10, 2017 PULMONARY MEDICINE PROGRESS NOTE SUBJECTIVE: Ms. Cox was seen and examined at bedside. She is intubated at this time. She is wide awake, following commands and tries to communicate nonverbally. Patient remains off pressors. Patient being evaluated today for multiple processes. Bronchoscopy done in the morning for which she recovered afterwards and awoke readily. REVIEW OF SYSTEMS: Cannot get as she is intubated. OBJECTIVE VITALS: Afebrile. Vital signs noted per electronic record. GENERAL: In no acute distress. Alert and calm on the ventilator mostly. HEENT: Normocephalic and atraumatic. NECK: Supple. Throat midline. LUNGS: Bilateral air entry. Few rhonchi. Few rales. CARDIOVASCULAR: S1 and S2. No murmurs, rubs or gallops. ABDOMEN: Soft and nontender. EXTREMITIES: No clubbing. No cyanosis. There is just trace edema. INTEGUMENT: No rash. No purpura. LABS: Potassium 3.5, creatinine 3.8. White count 7, hemoglobin 9. PTT 22, INR 1.03. IMPRESSION AND PLAN 1. Acute respiratory failure, multifactorial. 2. Large left-sided atelectasis, under evaluation. 3. Chronic interstitial lung disease, unclear if active versus inactive. 4. Additional fluid overload component. 5. Status post cardiac arrest. 6. End-stage renal disease. 7. Pain syndrome. Bronchoscopy was done in which we pulled 10 plugs out that were solid. Will continue to follow up and repeat chest x-ray to see if it improves. Follow up abdominal x-ray. Will consider CT scan of her lungs and abdomen. Thereafter, will consider if we should extubate the patient. Dialysis as indicated per nephrology specialist. Multiple followup and coordination of care, not including procedures greater than 30 minutes in care today. Follow up multiple occasions. Job#: [id number] KATELIN
[2017-06-11 05:55] LABS: HEMOGLOBIN 8.6 g/dL (12.0-16.0); MEAN CORPUSCULAR HEMOGLOBIN 31.2 pg (28-32); MEAN CORPUSCULAR HGB CONC 31.9 g/dL (31-35); MEAN CORPUSCULAR VOLUME 97.8 fL (81-99); PLATELET COUNT 181 x10e3/uL (140-360); RED BLOOD COUNT 2.76 x10e6/uL (3.6-5.1); RED CELL DISTRIBUTION WIDTH 18.6 % (11.7-14.4)
[2017-06-11] MEDS: INSULIN REGULAR, HUMAN 100 UNIT/1 ML 3ML VIAL SQ SCH ×4 (06:00→18:00)
[2017-06-11 06:09] LABS: ALBUMIN 2.5 g/dL (3.5-5.0); ALBUMIN/GLOBULIN RATIO 0.7 (0.8-2.0); ANION GAP 18.7 mmol/L (8-16); CALCIUM 8.2 mg/dL (8.4-10.2); CREATININE, SERUM 4.11 mg/dL (0.57-1.11); MAGNESIUM 1.8 MG/DL (1.3-2.1); PHOSPHORUS 5.2 MG/DL (2.3-4.7); POTASSIUM 3.7 mmol/L (3.5-5.1)
--- NOTE | 2017-06-11 07:24 | Diagnostic Imaging Report ---
Examination: Single AP view of the chest. COMPARISON: 06/10/2017 INDICATION: Respiratory failure DISCUSSION: See impression IMPRESSION: 1. Endotracheal tube, nasogastric tube, and right-sided central venous catheter are unchanged in position. 2. Stable enlargement of the cardiac silhouette with interstitial pulmonary edema, small left and trace right pleural effusions relative to 06/10/2017. 3. No new airspace consolidations. 4. No acute osseous abnormalities. Surgical clips are noted within the left arm soft tissues. Signed by: Dr. Yon Kaiser M.D. on 06/11/2017 7:20 AM
[2017-06-11 07:44] LABS: EOSINOPHILS % (MANUAL) 1 % (0-7); LYMPHOCYTES % (MANUAL) 15 % (19-48); METAMYELOCYTES % (MANUAL) 1 % (0-0); MONOCYTES % (MANUAL) 7 % (3.4-9.0); MYELOCYTES % (MANUAL) 1 % (0-0); NEUTROPHILS % (MANUAL) 74 % (40-74); PROMYELOCYTES % (MANUAL) 1 % (0-0)
[2017-06-11 07:47] LABS: ANISOCYTOSIS SLIGHT; HYPOCHROMASIA SLIGHT; PLATELET ESTIMATE ADEQUATE; PLATELET MORPHOLOGY COMMENT NORMAL; POIKILOCYTOSIS SLIGHT; RBC MORPHOLOGY COMMENT NORMAL
--- NOTE | 2017-06-11 09:03 | Diagnostic Imaging Report ---
PROCEDURE: CT CHEST WITHOUT CONTRAST CT scan of the chest WITHOUT intravenous contrast, using standard protocol. TECHNIQUE: The chest was scanned utilizing a multidetector helical scanner from the apex to the level of the adrenal glands. No IV contrast was administered because of referring physician request. Coronal and sagittal multiplanar reformations were obtained. COMPARISON: Chest radiograph same day. INDICATIONS: FLUID OVERLOAD FINDINGS: Lines/tubes: Endotracheal tube terminates above the darrian. Nasogastric tube is incompletely visualized but courses into the stomach. Right internal jugular central venous catheter terminates in the low superior vena cava.. Lungs and Airways: Groundglass opacities with smooth interlobular septal thickening with a lower lobe predominance. Background of coarse interstitial and reticular opacities predominantly within the lung apices, with scattered foci of juxtapleural reticulation along the lower lungs. Inferior lingular and left lower lobe consolidation. The trachea, mainstem bronchi, and central lobar and segmental bronchi are patent, without filling defect. Pleura: Trace bilateral pleural effusions. Heart and mediastinum: Visualized portions of the thyroid gland are normal. Mild mediastinal lymphadenopathy. Right lower paratracheal node measures 1 cm short axis. Precarinal node measures 1.4 cm short axis, left lower paratracheal node measures 1.2 cm short axis. Moderate cardiomegaly with atherosclerotic coronary artery calcifications. Trace pericardial effusion. The pulmonary outflow tract is enlarged, measuring 3.5 cm. Soft tissues: No focal soft tissue abnormalities. Abdomen: Visualized portions of the liver and spleen are grossly unremarkable. Bones: No osseous destructive lesions. Multilevel degenerative disc changes and facet arthropathy of the thoracic spine with bridging osteophytosis. IMPRESSION: Cardiomegaly and trace pericardial effusion with interstitial pulmonary edema, probably superimposed on chronic fibrotic changes. Trace bilateral pleural effusions. Left lower lobe pneumonia. Mediastinal lymphadenopathy is likely reactive. Atherosclerotic vascular disease. Enlargement of the pulmonary outflow tract suggests underlying pulmonary hypertension. Dictated by: Yon Kaiser M.D. on 06/11/2017 at 9:11 Electronically approved by: Yon Kaiser M.D. on 06/11/2017 at 9:11
[2017-06-11] MEDS: METOPROLOL TARTRATE 25 MG TAB PO SCH ×2 (09:07→18:54)
[2017-06-11] MEDS: ASPIRIN 325 MG TAB PO SCH (09:07)
[2017-06-11] MEDS: AMIODARONE HCL 200 MG TAB PO SCH ×2 (09:07→18:54)
[2017-06-11] MEDS: GABAPENTIN 300 MG CAP PO SCH ×2 (09:07→18:54)
--- NOTE | 2017-06-11 09:30 | Operative Report ---
DATE OF PROCEDURE: June 10, 2017 PROCEDURE: Flexible fiberoptic bronchoscopy. INDICATIONS: Chronic interstitial lung disease. CONSENT: Informed consent from . ANESTHESIA: Patient received 100 mcg of fentanyl IV, 2 mg Versed. FINDINGS: Flexible bronchoscope inserted into the endotracheal tube into the patient's airways. Patient had tracheobronchial tree inspected. There was normal configuration of the airway. There was surprise finding of solid plugs coming out into the trachea and these were removed with repetitive suctioning attempts and drawing out the bronchoscope overall small to moderate amount of the solid plugs. Thereafter, airways were found to have only mild purulence in place. Washings were taken. Bronchoalveolar lavage was performed thereafter. After lavage, the procedure was terminated after the bronchoscope was removed. Patient was left on ventilator. IMPRESSION: 1. Chronically abnormal chest x-ray, with some component of diffuse interstitial lung disease. 2. Status post bronchoscopy with washes and lavage. 3. Additional finding of small, but mostly solid tracheal plugs. RECOMMENDATIONS: Repeat chest radiography now that the solid plugs are out to see what component of atelectasis and lung shadow these plugs contributed to. Follow up the lavage. COMPLICATIONS: None. ESTIMATED BLOOD LOSS: Zero mL. Job#: [id number]
[2017-06-11] MEDS: BALSAM PERU/CASTOR OIL 60 GM OINT...G. TP SCH ×2 (09:43→18:16)
--- NOTE | 2017-06-11 11:04 | Progress Note ---
DATE: June 11, 2017 CARDIOLOGY PROGRESS NOTE SUBJECTIVE: The patient remains intubated. She is not on sedation and is awake, responds appropriately to questions. Denies chest pain or shortness of breath. Is gesturing that she would like the tube removed. OBJECTIVE VITAL SIGNS: Temperature 98.5 degrees, pulse 67, respiratory rate 16, blood pressure 133/59, oxygen saturation 97% on mechanical ventilation. GENERAL: Awake, alert, intubated, no acute distress. LUNGS: Clear to auscultation bilaterally. No wheezes or crackles. CARDIOVASCULAR: Normal rate, regular rhythm. No murmur. Normal S1 and S2. ABDOMEN: Soft. EXTREMITIES: No edema. CARDIAC MEDICATIONS 1. Amiodarone 400 mg p.o. b.i.d. 2. Aspirin 325 mg p.o. daily. 3. Metoprolol tartrate 25 mg p.o. b.i.d. LABS: WBC 10.3, hemoglobin 8.6, hematocrit 27, platelets 181. Sodium 138, potassium 3.7, chloride 103, CO2 of 20, BUN 44, creatinine 4.11. Bronch washings growing Staph aureus. CT chest: Cardiomegaly and trace pericardial effusion with interstitial pulmonary edema, probably superimposed on chronic fibrotic changes. Trace bilateral pleural effusions. Left lower lobe pneumonia. Mediastinal lymphadenopathy is likely reactive. Atherosclerotic vascular disease. Enlargement of the pulmonary outflow tract suggests underlying pulmonary hypertension. TELEMETRY: Normal sinus rhythm. IMPRESSION 1. Gkx-SJ-fiwwypksj myocardial infarction with first diagonal flush occlusion and moderate coronary artery disease of the other arteries. 2. Status post cardiac arrest with strips concerning for ventricular tachycardia. 3. Pneumonia. 4. Paroxysmal atrial fibrillation, currently in sinus rhythm. 5. Anemia. 6. Peripheral arterial disease, status post left below-knee amputation. 7. Abnormal liver function test. 8. End-stage renal disease on dialysis. RECOMMENDATIONS: Continue current cardiac medications. No statins due to earlier transaminitis. However, LFTs have normalized. Consider trial of statin as an outpatient if LFTs remain normal. Appreciate EP assistance. Once the patient is extubated, will notify EP in order to proceed with defibrillator implantation for secondary prevention. Ventilator management per pulmonary. Antibiotic per primary service. Thank you for this consult. We will continue to follow. Job#: [id number]
--- NOTE | 2017-06-11 13:16 | Progress Note ---
DATE: INTERNAL MEDICINE PROGRESS NOTE Patient has been extubated, doing better. She is going to go for a pacemaker tomorrow. PHYSICAL EXAMINATION HEART: Regular rhythm. Normal S1 and S2 sounds. LUNGS: Clear bilaterally. ABDOMEN: Soft. EXTREMITIES: No evidence of cyanosis, edema or trauma. FINAL IMPRESSION 1. Ekk-WG-zewxutsxv myocardial infarction in the setting of severe coronary artery disease with calcified 20% left main, proximal left anterior descending 50%, mid left anterior descending 50%. First diagonal was flush occluded at the origin from the left anterior descending coronary artery. Circumflex is a small vessel. Right coronary artery dominant and has 50% stenosis. 2. Episode of asystole. 3. Aspiration pneumonia. 4. Paroxysmal atrial fibrillation, currently in sinus rhythm. 5. Anemia secondary to end-stage renal disease. 6. Peripheral vascular disease status post left below-knee amputation. 7. Abnormal liver function tests. 8. End-stage renal disease. 9. Chronic systolic congestive heart failure. PLAN OF TREATMENT: Patient is going to go for a pacemaker. She has been extubated today. We are going to continue dialysis. Continue current medication regimen. Continue diabetic and renal diet as tolerated. Patient is going to most likely be going to [facility] once approved. She is taking Xopenex and Atrovent q.6 h. She is on vancomycin on Saturday, Saturday, and Saturday. She is on Levaquin 250 mg IV piggyback q.48 h.; cefepime 0.4 g every 24 hours; Epogen 10,000 units Saturday, Saturday and Saturday; Epworth 1 tablet q.6 h. as needed for pain; fentanyl citrate 60 mcg q.2 h. as needed for severe pain. Continue to monitor blood sugar q.6 h. Continue metoprolol 25 mg twice a day; gabapentin 300 mg daily; amiodarone 400 mg twice a day, aspirin 325 mg daily, and gabapentin 300 mg on Saturday, Saturday and Saturday. Job#: [id number]
[2017-06-11] MEDS: CEFEPIME HCL 1 GM VIAL IV SCH (14:30)
[2017-06-11] MEDS: LEVOFLOXACIN 250 MG TAB PO SCH (14:30)
[2017-06-11] MEDS: NOREPINEPHRINE BITARTRATE/ NS 250 ML IV SCH (14:45)
[2017-06-11] MEDS: HEPARIN 25,000U/0.45% NS 250ML 800 UNIT in SODIUM CHLORIDE 0.9% 250ML 0 ML IV SCH (14:57)
--- NOTE | 2017-06-11 17:05 | Progress Note ---
DATE: June 11, 2017 PULMONARY MEDICINE PROGRESS NOTE SUBJECTIVE: Ms. Cox was seen and examined at bedside. She continues her current treatment. She is intubated. She is on the ventilator. She is wide awake and following commands. The patient's CT chest was reviewed with a lot of chronic disease. A 3.49-mm pulmonary artery, mild fluid overload, and some chronic interstitial lung disease likely. Bronchoscopy yesterday was Staphylococcus so far and 72% PMNs on cell count differential. REVIEW OF SYSTEMS: No headaches. No rash. OBJECTIVE VITALS: Afebrile. Vital signs noted per electronic record. GENERAL: In no acute distress. Alert and calm on the ventilator. HEENT: Normocephalic and atraumatic. NECK: Supple. Throat midline. LUNGS: Bilateral air entry. A few rhonchi. Limited. CARDIOVASCULAR: S1 and S2. No murmurs, rubs or gallops. ABDOMEN: Soft and nontender. EXTREMITIES: No clubbing. No cyanosis. No edema. INTEGUMENT: No rash. No purpura. IMPRESSION AND PLAN 1. Acute respiratory failure, intubated. 2. Status post cardiac arrest. 3. Chronic interstitial lung disease. 4. Fluid overload component. 5. Possible secondary pulmonary hypertension. 6. Possible acute pneumonia. 7. End-stage renal disease status. PLAN: Continue current treatment at this time. Will look forward to extubating the patient. CAT scan reviewed with staff. The patient has little pulmonary reserve and will likely remain that way. Eventually, consideration should be for diagnosis of the infiltrate. Will follow along closely. Job#: [id number]
[2017-06-11] MEDS: VANCOMYCIN 1GM/NS 250 ML 250 ML IV SCH (18:54)
[2017-06-11] MEDS: HYDROCODONE/APAP 7.5MG-325MG 1 EA TAB PO PRN (18:55)
[2017-06-12] VITALS (51 sets, daily range): BP systolic 74–134; BP diastolic 36–105
[2017-06-12] MEDS: IPRATROPIUM BROMIDE 0.02% 2.5 ML NEB NEB SCH ×4 (00:20→19:00)
[2017-06-12] MEDS: LEVALBUTEROL HCL SOLN NEBU 0.63 MG/3 ML NEB INH SCH ×4 (00:20→19:00)
[2017-06-12] MEDS: HYDROCODONE/APAP 7.5MG-325MG 1 EA TAB PO PRN ×3 (02:26→18:34)
[2017-06-12] MEDS: INSULIN REGULAR, HUMAN 100 UNIT/1 ML 3ML VIAL SQ SCH ×6 (06:00→20:23)
[2017-06-12 06:10] LABS: HEMATOCRIT 26.9 % (34.2-44.1); HEMOGLOBIN 8.2 g/dL (12.0-16.0); MEAN CORPUSCULAR HEMOGLOBIN 30.5 pg (28-32); MEAN CORPUSCULAR HGB CONC 30.5 g/dL (31-35); PLATELET COUNT 189 x10e3/uL (140-360); RED BLOOD COUNT 2.69 x10e6/uL (3.6-5.1); RED CELL DISTRIBUTION WIDTH 18.5 % (11.7-14.4)
[2017-06-12 06:43] LABS: ALBUMIN 2.6 g/dL (3.5-5.0); ALBUMIN/GLOBULIN RATIO 0.7 (0.8-2.0); CALCIUM 8.2 mg/dL (8.4-10.2); CREATININE, SERUM 2.66 mg/dL (0.57-1.11)
[2017-06-12] MEDS: BALSAM PERU/CASTOR OIL 60 GM OINT...G. TP SCH ×2 (08:49→18:02)
[2017-06-12] MEDS: GABAPENTIN 300 MG CAP PO SCH (08:52)
[2017-06-12] MEDS: ASPIRIN 325 MG TAB PO SCH (08:53)
[2017-06-12] MEDS: AMIODARONE HCL 200 MG TAB PO SCH ×2 (08:53→16:29)
[2017-06-12] MEDS: METOPROLOL TARTRATE 25 MG TAB PO SCH ×2 (08:53→16:29)
[2017-06-12 09:08] LABS: LYMPHOCYTES % (MANUAL) 13 % (19-48); METAMYELOCYTES % (MANUAL) 1 % (0-0); MONOCYTES % (MANUAL) 6 % (3.4-9.0); MYELOCYTES % (MANUAL) 1 % (0-0); NEUTROPHILS % (MANUAL) 78 % (40-74)
[2017-06-12 09:10] LABS: ANISOCYTOSIS SLIGHT; HYPOCHROMASIA SLIGHT; PLATELET ESTIMATE ADEQUATE; PLATELET MORPHOLOGY COMMENT NORMAL; RBC MORPHOLOGY COMMENT NORMAL
[2017-06-12] MEDS: EPOETIN ALFA 10000 UNIT/ML VIAL SC SCH (12:00)
[2017-06-12 12:05] LABS: INR 1.33; PROTHROMBIN TIME 17.2 seconds (11.9-14.5)
[2017-06-12] MEDS ORDERED: FENTANYL CITRATE/PF 100MCG/2 ML INJ ONE (12:27)
[2017-06-12] MEDS ORDERED: MIDAZOLAM HCL 2 MG/2 ML VIAL ONE ×2 (12:27→13:50)
[2017-06-12] MEDS ORDERED: SODIUM CHLORIDE 0.9% 500ML 1,000 ML ONE (12:28)
[2017-06-12] MEDS ORDERED: BACITRACIN 50,000 UNIT VIAL ONE (12:28)
[2017-06-12] MEDS ORDERED: LIDOCAINE HCL 2% LOCAL 20 ML VIAL ONE ×2 (12:28→14:04)
[2017-06-12] MEDS ORDERED: SODIUM CHLORIDE 0.9% 1000ML 1,000 ML ONE (12:52)
[2017-06-12] MEDS ORDERED: VANCOMYCIN 1GM/NS 250 ML 250 ML ONE (13:19)
--- NOTE | 2017-06-12 13:22 | Progress Note ---
DATE: INTERNAL MEDICINE PROGRESS NOTE SUBJECTIVE: Patient has been extubated. She is going to be going for implant of cardiac defibrillator today. PHYSICAL EXAMINATION VITAL SIGNS: Blood pressure 106/48. Temperature 99 degrees. Heart rate 62 per minute. Respiratory rate 16 per minute. Oxygen saturation 94%. HEART: Regular rhythm. Normal S1, S2 sounds. LUNGS: Clear bilaterally. ABDOMEN: Soft. EXTREMITIES: Left below-knee amputation. LABS: On the BMP, sodium 139, potassium 4.0, chloride 103, CO2 24, BUN 22, creatinine 2.66, glucose 124. CBC showed white blood count 10.0, hemoglobin 10.2, hematocrit 26.9, platelet count 189,000. PT 14.0, INR 1.03, PTT 110. AST 15, ALT 69, total bilirubin 0.6, alkaline phosphatase 78. FINAL IMPRESSION 1. Acute respiratory failure, status post extubation. 2. Sick sinus syndrome. Plan of treatment: Going to go for implant of cardiac defibrillator. 3. Coronary artery disease. 4. Chronic systolic congestive heart failure. 5. End-stage renal disease on dialysis. 6. Uncontrolled diabetes mellitus, type 2, with end-stage renal disease. 7. Anemia of chronic disease. 8. Pneumonia. 9. Elevated liver function tests. PLAN OF TREATMENT: Continue albuterol q.6 h., Atrovent q.6 h., vancomycin 1 g IV piggyback on Saturday, Saturday and Saturday, Levaquin 250 mg IV q.8 h. Fentanyl citrate is going to be discontinued. Continue monitoring blood sugar a.c. and nightly. Epogen 10,000 units Saturday, Saturday and Saturday. Gabapentin 300 mg daily. Amiodarone 400 mg twice a day. Continue metoprolol 25 mg twice a day. Albumin as needed. Gabapentin 300 mg Saturday, Saturday and Saturday. Continue aspirin 325 mg daily. Cefepime 0.5 g IV piggyback q.24 h. I discussed the case with the family at the bedside. Patient is going to go for implant of a cardiac defibrillator today and after that most likely long-term care hospital. The family is still unsure about that, but we are going to discuss it later on. Time spent was an hour. Job#: [id number]
[2017-06-12] MEDS ORDERED: SODIUM BICARBONATE 8.4% SYRING 50 ML ONE (13:43)
--- NOTE | 2017-06-12 14:26 | Progress Note ---
DATE: June 12, 2017 PULMONARY MEDICINE PROGRESS NOTE SUBJECTIVE: Ms. Cox was seen and examined at bedside. She continues to have some weakness. However, she was extubated with good spontaneous breathing. The patient continues with ability to expectorate her phlegm. She is on nasal cannula oxygen with 94% oxygen saturation. REVIEW OF SYSTEMS: No bleeding. No rash. OBJECTIVE VITALS: Afebrile. Vital signs noted per electronic record. GENERAL: In no acute distress. Alert, calm. HEENT: Normocephalic and atraumatic. NECK: Supple. Throat midline. LUNGS: Bilateral air entry. A few rhonchi. CARDIOVASCULAR: S1 and S2. No murmurs, rubs or gallops. ABDOMEN: Soft and nontender. EXTREMITIES: No clubbing. No cyanosis. There is no edema. INTEGUMENT: No rash. No purpura. LABS: 22 BUN, 2.6 creatinine, 4.0 potassium, 10 white count. PTT is 110. IMPRESSION AND PLAN 1. Acute respiratory failure, extubated. 2. Weakness. 3. lung disease. 4. 5. End-stage renal disease. 6. Methicillin-resistant Staphylococcus aureus pneumonia. 7. Status post cardiac arrest. Continue to mobilize the patient. Encourage expectoration of phlegm. Bronchodilators will be continued. The patient will have antibiotics continued. Patient furthermore will have AICD placed today for cardiac protection. We will continue to follow closely. Job#: [id number]
[2017-06-12] MEDS: NOREPINEPHRINE BITARTRATE/ NS 250 ML IV SCH (14:45)
[2017-06-12] MEDS: CEFEPIME HCL 1 GM VIAL IV SCH (15:09)
--- NOTE | 2017-06-12 16:45 | Operative Report ---
DATE OF PROCEDURE: June 12, 2017 PREPROCEDURAL DIAGNOSES 1. Cardiac arrest secondary to ventricular fibrillation which degenerated to asystole. 2. End-stage renal disease, status post left arm AV fistula. 3. History of Non-ST elevation myocardial infarction, non-revascularizable. 4. Secondary prevention implantable cardioverter-defibrillator therapy. POSTPROCEDURAL DIAGNOSES 1. Cardiac arrest secondary to ventricular fibrillation which degenerated to asystole. 2. End-stage renal disease, status post left arm AV fistula. 3. History of Non-ST elevation myocardial infarction, non-revascularizable. 4. Secondary prevention implantable cardioverter-defibrillator therapy. PROCEDURES PERFORMED 1. Right-sided [employer] Dual-Chamber implantable cardioverter-defibrillator implant. 2. Moderate sedation. PROCEDURE IN DETAIL: Ms. Swanson was brought to the labor relations or personnel negotiator here at [facility] in a fasting and nonsedated state. The right pectoral region was prepped and draped in a sterile manner. A pocket was formed on the right pectoral region with a combination of electrocautery, blunt and sharp dissection. Access to the axillary vein was made to the pocket and 2 guidewires placed in this vein with the tips in the IVC. A 9-[place] sheath was placed over the 1st guidewire through which a [employer]an 4-sided single coil ICD lead, model #0292, serial #[id number] was implanted in the right ventricular apex without complications. Adequate pacing and sensing parameters were observed and the sheath was peeled away, and the lead secured to the underlying fascia with 0 silk. A 7-[place] sheath was placed over the remaining guidewire through which an [employer]gevity MRI pacing lead, model #7740, serial #[id number] was implanted in the right atrial appendage without complications. Of note, low amplitude voltage was seen throughout the initial implants and eventually because of some problems in the helix we had to replace the lead, and reassess the vein and placed a new Ingevity MRI pacing lead, which the serial number and model number were the ones noted. After adequate pacing and sensing parameters, the sheath was peeled away, leads secured to the underlying fascia with 0 silk. The pocket was irrigated with antibiotic containing normal saline with a pulse irrigation and pulse lavage tool. The leads were connected to a [employer] ICD generator, model #D022, serial #[id number]. The generator leads were then placed in the pocket and secured to the underlying fascia with 0 silk. The pocket was closed in 3 layers with 2-0 Vicryl for the deep and subcutaneous layers and 4-0 Vicryl for the skin. Dermabond was placed for additional skin approximation. DEVICE DATA: Right ventricular lead has R waves of 12 mV, a threshold of 124 V and pulse width of 0.4 msec and a pacing impedance of 670 ohms. Shock impedance is 55 ohms. The right atrium has P waves of 3.8 mV, a threshold of 1 V and a pulse width of 0.5 msec and a pacing impedance of 632 ohms. Of note, moderate sedation was administered for the procedure. Total amount of sedation time was 60 minutes with a total Versed dosage of 3 mg and fentanyl dose of 75 mcg. Pulse oximetry and hemodynamic monitoring were performed throughout the procedure. The patient tolerated the procedure well. CONCLUSION: 1. Successful implantation of a right-sided [employer] Dual Chamber ICD. 2. Moderate sedation administered. Job#: [id number]
--- NOTE | 2017-06-12 20:37 | Progress Note ---
DATE: June 12, 2017 CARDIOLOGY PROGRESS NOTE SUBJECTIVE: The patient denies chest pain or shortness of breath. She is going for ICD implantation today. OBJECTIVE VITAL SIGNS: Temperature 98.7 degrees, pulse 62, respiratory rate 16, blood pressure 100/47, oxygen saturation 98% on 3 liters nasal cannula. GENERAL: Awake, alert, and in no acute distress. LUNGS: Clear to auscultation bilaterally. No wheezes or crackles. CARDIOVASCULAR: Normal rate, regular rhythm. No murmur. Normal S1 and S2. ABDOMEN: Soft. EXTREMITIES: No edema. CARDIAC MEDICATIONS 1. Amiodarone 400 mg p.o. b.i.d. 2. Aspirin 325 mg p.o. daily. 3. Metoprolol tartrate 25 mg p.o. b.i.d. LABS: WBC 10.04, hemoglobin 8.2, hematocrit 26.9, platelets 189,000, sodium 139, potassium 4, chloride 103, CO2 of 24, BUN 22, creatinine 2.66. INR 1.33. TELEMETRY: Normal sinus rhythm. IMPRESSION 1. Kzf-NM-cmrhajtki myocardial infarction with first diagonal flush occlusion and moderate coronary artery disease of the other vessels. 2. Status post cardiac arrest with strips concerning for ventricular tachycardia. 3. Pneumonia. 4. Paroxysmal atrial fibrillation, currently in sinus rhythm. 5. Anemia. 6. Peripheral arterial disease, status post left below-knee amputation. 7. Abnormal liver function test. 8. End-stage renal disease on dialysis. RECOMMENDATIONS: Continue current cardiac medications. No statins due to earlier transaminitis. However, LFTs have now normalized. We will consider a trial of statin as an outpatient if the LFTs remain normal as the patient has been extubated and plan for ICD implantation by EP today. Antibiotics per primary service. Thank you for this consult. We will continue to follow. Job#: [id number]
--- NOTE | 2017-06-12 21:40 | Diagnostic Imaging Report ---
EXAM: CHEST SINGLE (PORTABLE), AP 1 view DATE: 06/12/2017 5:00 AM Time stamp on exam: 0552 hours INDICATION: Post extubation COMPARISON: AP view of the chest June 21, 2017 FINDINGS: LINES/TUBES: Stable position right subclavian central line. Interval removal of endotracheal tube and nasal/oral gastric tube. LUNGS: Stable pulmonary edema. PLEURA: Stable bilateral pleural effusions. HEART AND MEDIASTINUM: Stable cardiomegaly. BONES AND SOFT TISSUES: No acute findings. IMPRESSION: Interval removal of endotracheal tube and nasal/orogastric tube, otherwise no interval change in appearance of the chest. Signed by: Dr. Asya Gastelum M.D. on 06/12/2017 9:36 PM
[2017-06-12] MEDS ORDERED: MORPHINE SULFATE 4 MG/ML SYR IV PRN (23:00)
[2017-06-12] MEDS ORDERED: MORPHINE SULFATE 2 MG/ML SYR ONE (23:19)
[2017-06-13] VITALS (8 sets, daily range): BP systolic 92–106; BP diastolic 50–68
[2017-06-13] MEDS: LEVALBUTEROL HCL SOLN NEBU 0.63 MG/3 ML NEB INH SCH ×4 (01:17→20:30)
[2017-06-13] MEDS: IPRATROPIUM BROMIDE 0.02% 2.5 ML NEB NEB SCH ×4 (01:17→20:30)
[2017-06-13] MEDS: HYDROCODONE/APAP 7.5MG-325MG 1 EA TAB PO PRN (06:23)
[2017-06-13 06:48] LABS: HEMATOCRIT 28.3 % (34.2-44.1); HEMOGLOBIN 8.6 g/dL (12.0-16.0); MEAN CORPUSCULAR HEMOGLOBIN 30.5 pg (28-32); MEAN CORPUSCULAR HGB CONC 30.4 g/dL (31-35); MEAN CORPUSCULAR VOLUME 100.4 fL (81-99); PLATELET COUNT 209 x10e3/uL (140-360); RED BLOOD COUNT 2.82 x10e6/uL (3.6-5.1); RED CELL DISTRIBUTION WIDTH 18.5 % (11.7-14.4)
--- NOTE | 2017-06-13 06:56 | Diagnostic Imaging Report ---
EXAM: CHEST SINGLE (PORTABLE), AP 1 view DATE: 06/13/2017 5:00 AM Time stamp on exam: 0604 hours INDICATION: Pneumonia post pacemaker COMPARISON: AP view of the chest June 12, 2017 FINDINGS: LINES/TUBES: Stable position of right subclavian central line. Interval placement of a right approach dual-chamber cardiac device. LUNGS: Diffuse bilateral airspace opacities. Left retrocardiac opacification. PLEURA: Probable layering pleural effusions bilaterally. HEART AND MEDIASTINUM: Marked enlargement of the cardiomediastinal silhouette. BONES AND SOFT TISSUES: No acute findings. IMPRESSION: Interval placement of a right approach pacemaker, otherwise no significant interval change. Signed by: Dr. Asya Gastelum M.D. on 06/13/2017 6:53 AM
[2017-06-13 07:16] LABS: ALBUMIN 2.7 g/dL (3.5-5.0); ALBUMIN/GLOBULIN RATIO 0.7 (0.8-2.0); ANION GAP 17.3 mmol/L (8-16); CALCIUM 8.2 mg/dL (8.4-10.2); CREATININE, SERUM 3.66 mg/dL (0.57-1.11); PHOSPHORUS 4.3 MG/DL (2.3-4.7); POTASSIUM 4.3 mmol/L (3.5-5.1)
[2017-06-13] MEDS: INSULIN REGULAR, HUMAN 100 UNIT/1 ML 3ML VIAL SQ SCH ×4 (07:30→20:30)
[2017-06-13 08:11] LABS: LYMPHOCYTES % (MANUAL) 6 % (19-48); MONOCYTES % (MANUAL) 6 % (3.4-9.0); NEUTROPHILS % (MANUAL) 88 % (40-74)
[2017-06-13] MEDS: METOPROLOL TARTRATE 25 MG TAB PO SCH (08:18)
[2017-06-13] MEDS: AMIODARONE HCL 200 MG TAB PO SCH ×2 (08:18→16:47)
[2017-06-13] MEDS: ASPIRIN 325 MG TAB PO SCH (08:18)
[2017-06-13] MEDS: BALSAM PERU/CASTOR OIL 60 GM OINT...G. TP SCH ×2 (08:19→16:47)
[2017-06-13] MEDS: GABAPENTIN 300 MG CAP PO SCH (08:19)
[2017-06-13 08:22] LABS: ANISOCYTOSIS SLIGHT; HYPOCHROMASIA SLIGHT; PLATELET ESTIMATE ADEQUATE; PLATELET MORPHOLOGY COMMENT NORMAL; RBC MORPHOLOGY COMMENT NORMAL
[2017-06-13] MEDS ORDERED: MIDODRINE 2.5 MG TAB PO PRN (12:30)
[2017-06-13] MEDS ORDERED: SODIUM CHLORIDE 0.9% 250ML 250 ML ONE (12:33)
[2017-06-13] MEDS ORDERED: MIDODRINE HCL 5 MG TABLET PO PRN (12:45)
--- NOTE | 2017-06-13 13:37 | Progress Note ---
DATE: INTERNAL MEDICINE PROGRESS NOTE SUBJECTIVE: She is not feeling well. The blood pressure was found to be low. The blood sugar was in the 120s. We are going to bolus her with normal saline. Dialysis is going to be placed on hold, plus the patient is also refusing dialysis. She had an implantable cardiac defibrillator placed yesterday. PHYSICAL EXAMINATION: HEART: Shows regular rhythm. Normal S1 and S2 sounds. LUNGS: Clear bilaterally. ABDOMEN: Soft. EXTREMITIES: Show a left below-knee amputation. VITAL SIGNS: Blood pressure was 88/50. Temperature 97.9. Heart rate 78 per minute. Respiratory rate is 16 per minute. Oxygen saturation 93%. BLOOD WORK: We have sodium 138, potassium 4.3, chloride 101, CO2 24, BUN 31, creatinine 3.66, glucose 167. On the CBC: White blood count 13.9, hemoglobin 8.6, hematocrit 28.3, platelet count 209,000. PT is 17.2, PTT is 37.7, INR 1.33. ALT 31, ALT 67, total bilirubin 0.5, alkaline phosphatase 69. FINAL IMPRESSION: 1. Pneumonia. 2. She is status post cardiac arrest, status post implantable cardiac defibrillator placement. 3. End-stage renal disease on dialysis. 4. Hypotension secondary to dehydration. 5. Anemia of chronic disease. 6. 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 7. Coronary artery disease. PLAN OF TREATMENT: Continue Xopenex q.6 h. Continue Atrovent q.6 h. Continue Levophed as needed. We are going to give normal saline 200 mL over 1 hour today. If the blood pressure does not improve, then she is going to be transferred to the intensive care unit. Also we are going to continue Epogen 10,000 units Saturday, Saturday and Saturday. Mannitol as needed during dialysis for hypotension. We are going to give gabapentin ___600 mg daily, Lawson 1 tablet q.6 h. as needed for severe pain. Metoprolol 25 mg twice a day is going to be placed on hold because of hypotension. Continue gabapentin __600 mg Saturday, Saturday and Saturday. Continue monitoring blood sugar a.c. and nightly. Continue aspirin 325 mg daily. Continue amiodarone 400 mg twice a day. Morphine 2 mg IV q.4 h. as needed for severe pain. Levaquin 250 mg IV piggyback q.48 h. We are going to discontinue fentanyl citrate. She is growing MRSA in the sputum; so, we are going to put some vancomycin on dialysis IV. I spent at least 45 minutes talking with the patient, the family, nurses. Will be rechecking the blood pressure, rechecking the blood sugar. Patient meets more criteria to go to a [facility] than as needs for IV at home because of the very complex medical situation, bilateral pneumonia and episode of hypotension, severe coronary artery disease. So, that is my recommendation. I discussed the case with the family. Job#: [id number] EV
[2017-06-13] MEDS ORDERED: VANCOMYCIN 1GM/NS 250 ML 250 ML IV SCH (15:00)
[2017-06-13] MEDS ORDERED: MIDODRINE 2.5 MG TAB PO SCH (16:00)
--- NOTE | 2017-06-13 16:00 | Progress Note ---
DATE: June 13, 2017 Ms.. Cox continues to improve. She has no new complaints. OBJECTIVE GENERAL: Alert, calm, does not seem to be in any acute distress. VITAL SIGNS: Stable, currently afebrile. HEENT: Not icteric. NECK: Supple. CHEST: Clear bilaterally. HEART: S1 and S2, no murmur. ABDOMEN: Soft. Bowel sounds present. EXTREMITIES: No edema. SKIN: No rash. LABORATORY DATA: Reviewed. IMPRESSION 1. Non-ST elevation myocardial infarction, seems to be doing well per cardiology. 2. Status post cardiac arrest. 3. Status post pneumonia. 4. Atrial fibrillation. 5. Anemia. 6. Peripheral vascular disease. 7. End-stage renal disease on hemodialysis. 8. Pneumonia with methicillin-resistant Staphylococcus aureus.. PLAN: She is currently on Xopenex, Cordarone, aspirin, insulin, off antibiotics. Concerned about leukocytosis. Will follow. Job#: [id number]
[2017-06-13] MEDS: MIDODRINE HCL 5 MG TABLET PO SCH (16:47)
--- NOTE | 2017-06-13 19:04 | Progress Note ---
DATE: June 13, 2017 CARDIOLOGY PROGRESS NOTE SUBJECTIVE: The patient denies chest pain or shortness of breath. OBJECTIVE VITAL SIGNS: Temperature 97.1 degrees, pulse 82, respiratory rate 18, blood pressure 96/52, oxygen saturation 91% on 4 liters nasal cannula. GENERAL: Awake, alert, and in no acute distress. LUNGS: Clear to auscultation bilaterally. No wheezes or crackles. CARDIOVASCULAR: Normal rate, regular rhythm. No murmur. Normal S1 and S2. ICD in pocket with dressing intact in the right upper chest. ABDOMEN: Soft. EXTREMITIES: No edema. CARDIAC MEDICATIONS 1. Amiodarone 400 mg p.o. b.i.d. 2. Aspirin 325 mg p.o. daily. LABS: WBC 13.9, hemoglobin 8.6, hematocrit 28.3 and platelets 209,000, sodium 138, potassium 4.3, chloride 101, CO2 of 24, BUN 31, creatinine 3.66. TELEMETRY: Normal sinus rhythm. ICD interrogation, normal function, no episodes. IMPRESSION 1. Qqe-ET-uegtfxgjv myocardial infarction with first diagonal flush occlusion and moderate coronary artery disease of the other vessels. 2. Status post cardiac arrest with strips concerning for ventricular tachycardia. 3. Pneumonia. 4. Paroxysmal atrial fibrillation, currently in normal sinus rhythm. 5. Anemia. 6. Peripheral arterial disease, status post left below-knee amputation. 7. Abnormal liver function test. 8. End-stage renal disease on dialysis. 9. Hypotension. RECOMMENDATIONS: Continue current cardiac medications. No statins due to earlier transaminitis. However, LFTs have now normalized. Consider trial of statin as an outpatient if LFTs remain normal. The patient underwent ICD implantation by EP yesterday. Device check this morning was normal. Antibiotics per infectious disease. Nuclear etiology has been identified for the patient's current hypotension. The patient's ejection fraction was normal on echocardiogram. Plan to start Midodrine for blood pressure support. Thank you for this consult. We will continue to follow. Job#: [id number]
[2017-06-13] MEDS ORDERED: MORPHINE SULFATE 2 MG/ML SYR IV PRN (20:45)
[2017-06-14] VITALS: BP 96/54
[2017-06-14] MEDS: IPRATROPIUM BROMIDE 0.02% 2.5 ML NEB NEB SCH ×4 (01:00→20:35)
[2017-06-14] MEDS: LEVALBUTEROL HCL SOLN NEBU 0.63 MG/3 ML NEB INH SCH ×4 (01:00→20:35)
--- NOTE | 2017-06-14 02:27 | Progress Note ---
DATE: June 13, 2017 PULMONARY MEDICINE PROGRESS NOTE SUBJECTIVE: Ms. Cox was seen and examined at bedside. She continues to have a lot of clinical weakness. García remains in place with small urine output. She is on 2 L per minute by nasal cannula. She is eating about one-third of her diet. Patient remains with right arm in a sling due to successful placement of AICD yesterday. REVIEW OF SYSTEMS: No headaches, no rash. OBJECTIVE VITALS: Afebrile. Vital signs noted per electronic chart record. GENERAL: In no acute distress. Alert and calm, but pale and weak. HEENT: Normocephalic, atraumatic. NECK: Supple. Throat midline. LUNGS: Bilateral air entry. A few rhonchi. CARDIOVASCULAR: S1 and S2. No murmurs, rubs or gallops. ABDOMEN: Soft and nontender. EXTREMITIES: No clubbing. No cyanosis. There is small edema. INTEGUMENT: No rash. No purpura. LABS: White count 14. Potassium 4.3. BUN 31, creatinine is 3.8. IMPRESSION AND PLAN 1. Acute respiratory failure, resolved. 2. Hypoxemia. 3. Chronic interstitial lung disease. 4. Additional fluid overload. 5. End-stage renal disease. 6. Treat for acute pneumonia. Will follow up closely. Continue mobilizing the patient and get her strength back. Continue local care postoperatively to the wound site where the AICD was placed. Will follow along closely. Patient remains in guarded condition, but she has overall low pulmonary reserve due to her condition of chronic interstitial lung disease and dialysis. Will follow along closely. Job#: [id number] NINO
[2017-06-14 04:00] VITALS: BP 113/50
[2017-06-14 06:34] LABS: BASOPHILS # (AUTO) 0.1 (0.0-0.1); BASOPHILS % 0.7 % (0.0-1.0); EOSINOPHILS # (AUTO) 0.2 (0.0-0.4); EOSINOPHILS % 1.4 % (0.0-6.0); HEMATOCRIT 29.1 % (34.2-44.1); HEMOGLOBIN 8.8 g/dL (12.0-16.0); LYMPHOCYTES # (AUTO) 1.1 (1.0-3.2); MEAN CORPUSCULAR HEMOGLOBIN 30.7 pg (28-32); MEAN CORPUSCULAR HGB CONC 30.2 g/dL (31-35); MEAN CORPUSCULAR VOLUME 101.4 fL (81-99); MONOCYTES # (AUTO) 0.9 (0.2-0.8); MONOCYTES % 8.6 % (4.4-11.3); NEUTROPHILS # (AUTO) 8.3 (2.1-6.9); NEUTROPHILS % 78.3 % (38.7-80.0); PLATELET COUNT 217 x10e3/uL (140-360); RED BLOOD COUNT 2.87 x10e6/uL (3.6-5.1); RED CELL DISTRIBUTION WIDTH 18.4 % (11.7-14.4)
[2017-06-14 06:51] LABS: ANION GAP 20.5 mmol/L (8-16); CALCIUM 8.4 mg/dL (8.4-10.2); CREATININE, SERUM 4.43 mg/dL (0.57-1.11); POTASSIUM 4.5 mmol/L (3.5-5.1)
[2017-06-14 08:43] VITALS: BP 100/44
[2017-06-14] MEDS: GABAPENTIN 300 MG CAP PO SCH ×2 (09:11→16:03)
[2017-06-14] MEDS: BALSAM PERU/CASTOR OIL 60 GM OINT...G. TP SCH ×2 (09:11→17:22)
[2017-06-14] MEDS: AMIODARONE HCL 200 MG TAB PO SCH ×2 (09:11→17:51)
[2017-06-14] MEDS: INSULIN REGULAR, HUMAN 100 UNIT/1 ML 3ML VIAL SQ SCH ×4 (09:11→21:00)
[2017-06-14] MEDS: ASPIRIN 325 MG TAB PO SCH (09:11)
[2017-06-14] MEDS: SODIUM FERRIC GLUCONATE COMPLX 125 MG in SODIUM CHLORIDE 0.9% 100 ML 100 ML IV SCH (09:11)
[2017-06-14] MEDS: MIDODRINE HCL 5 MG TABLET PO SCH ×3 (09:11→16:03)
--- NOTE | 2017-06-14 10:06 | Progress Note ---
DATE: June 14, 2017 PULMONARY MEDICINE PROGRESS NOTE SUBJECTIVE: Ms. Cox was seen and examined at bedside with 98% oxygen saturation on 3 L per minute oxygen flow rate. Bowel movement achieved yesterday times 1. Patient is resting in bed without any labored breathing or respiratory distress. REVIEW OF SYSTEMS: No headaches. No rash. OBJECTIVE VITALS: Afebrile. Vital signs noted per electronic record. GENERAL: In no acute distress. Slightly pale, but in bed. HEENT: Normocephalic, atraumatic. NECK: Supple. Throat midline. LUNGS: Bilateral air entry. A few rhonchi. CARDIOVASCULAR: S1 and S2. No murmurs, rubs or gallops. ABDOMEN: Soft and nontender. EXTREMITIES: No clubbing. No cyanosis. There is small edema. INTEGUMENT: No rash. No purpura. IMPRESSION AND PLAN 1. Acute respiratory failure, resolved. 2. Chronic interstitial lung disease. 3. Additional pulmonary edema. 4. Methicillin-resistant Staphylococcus aureus pneumonia. 5. Weakness/debility. 6. Status post cardiac arrest, normal ejection fraction. 7. Status post automatic implantable cardioverter-defibrillator placement. 8. Ventricular tachycardia. 9. Recent [id number] myocardial infarction. Continue close followup. Patient will need to continue a lot of aggressive therapy. Patient will continue to have cautions for AICD and shoulder range of motion. Patient will have intermittent chest radiography. The next one will be tomorrow. Will follow along closely. Will await further improvement on the antibiotics. Job#: [id number]
[2017-06-14] MEDS ORDERED: COSYNTROPIN 0.25 MG/VIAL VIAL INJ SCH (12:00)
[2017-06-14 12:15] VITALS: BP 103/50
--- NOTE | 2017-06-14 13:36 | Progress Note ---
DATE: INTERNAL MEDICINE PROGRESS NOTE SUBJECTIVE: She is not feeling well today. The blood pressure was low, also. PHYSICAL EXAMINATION VITAL SIGNS: Blood pressure 103/50. Temperature 98.3, heart rate 89 per minute, respiratory rate 20 per minute. Oxygen saturation 98%. HEART: Regular rhythm. Normal S1 and S2 sounds. LUNGS: Clear bilaterally. ABDOMEN: Soft. EXTREMITIES: Below-knee amputation of left lower extremity. LABS: On the BMP, sodium 140, potassium 4.5, chloride 103, CO2 21, BUN 37, creatinine 4.43. Glucose 189. On the CBC, white blood count 10.6, hemoglobin 8.8, hematocrit 29.1, platelet count 217,000. FINAL IMPRESSION 1. Acute respiratory failure status post cardiac arrest. 2. Diabetes mellitus, type 2, with diabetic neuropathy and diabetic nephropathy. 3. End-stage renal disease on dialysis. 4. History of hypotension. PLAN OF TREATMENT: We are going to continue Xopenex and Atrovent. Continue aspirin 325 mg daily and gabapentin 300 mg Saturday, Saturday and Saturday. Continue monitoring blood sugar a.c. and nightly. Continue morphine 2 mg IV q.8 h. as long as systolic blood pressure is more than 100, amiodarone 400 mg twice a day, midodrine 10 mg as needed. Continue cosyntropin 0.25 mg once. Continue with midodrine 10 mg 3 times a day, gabapentin 300 mg daily, and Epogen 10,000 units Saturday, Saturday and Saturday. Patient will continue with the current medication regimen. Continue monitoring the blood pressure. Job#: [id number]
[2017-06-14] MEDS ORDERED: EPOETIN ALFA 10000 UNIT/ML VIAL SC SCH (14:30)
[2017-06-14 15:58] VITALS: BP 135/62
--- NOTE | 2017-06-14 19:36 | Progress Note ---
DATE: June 14, 2017 CARDIOLOGY PROGRESS NOTE SUBJECTIVE: Patient denies chest pain or shortness of breath. Her main complaint is of pain. OBJECTIVE VITAL SIGNS: Temperature 98.3 degrees, pulse 89, respiratory rate 20, blood pressure 103/50, oxygen saturation 98% on 3 liters nasal cannula. GENERAL: Awake, alert, in no acute distress. LUNGS: Clear to auscultation bilaterally. No wheezes or crackles. CARDIOVASCULAR: Normal rate, regular rhythm. No murmur. Normal S1 and S2. ICD pocket with dressing intact in the right upper chest. ABDOMEN: Soft. EXTREMITIES: No edema. CARDIAC MEDICATIONS 1. Amiodarone 400 mg p.o. b.i.d. 2. Aspirin 325 mg p.o. daily. LABS: WBC 10.6, hemoglobin 8.8, hematocrit 29.1, platelets 217. Sodium 140, potassium 4.5, chloride 103, CO2 21, BUN 37, creatinine 4.43. TELEMETRY: Normal sinus rhythm. IMPRESSION 1. Gwp-[id number] myocardial infarction with 1st diagonal flush occlusion and moderate coronary artery disease of the other vessels. 2. Status post cardiac arrest with strips concerning for ventricular tachycardia. 3. Pneumonia. 4. Paroxysmal atrial fibrillation, currently in normal sinus rhythm. 5. Anemia. 6. Peripheral arterial disease status post left below-knee amputation. 7. Abnormal liver function tests. 8. End-stage renal disease on hemodialysis. 9. Hypotension. RECOMMENDATIONS: Continue current cardiac medications. No statins due to earlier transaminitis. However, LFTs have now normalized. We can consider trial of statin as outpatient if LFTs remain normal. Antibiotics per Infectious Disease. No clear etiology has been identified for the patient's current hypotension as ejection fraction was normal on echocardiogram. Midodrine has been started. Further evaluation per primary service. Thank you for this consult. We will continue to follow. Job#: [id number] EV
[2017-06-14 21:03] VITALS: BP 133/94
[2017-06-15 01:27] VITALS: BP 132/65
[2017-06-15] MEDS: LEVALBUTEROL HCL SOLN NEBU 0.63 MG/3 ML NEB INH SCH ×2 (02:45→07:00)
[2017-06-15] MEDS: IPRATROPIUM BROMIDE 0.02% 2.5 ML NEB NEB SCH ×2 (02:45→07:00)
--- NOTE | 2017-06-15 05:43 | Diagnostic Imaging Report ---
EXAM: CHEST SINGLE (PORTABLE), AP 1 view DATE: 06/15/2017 5:00 AM Time stamp on exam: 0513 hours INDICATION: Pneumonia COMPARISON: AP view of the chest June 13, 2017 FINDINGS: LINES/TUBES: Stable position right approach cardiac device and subclavian central line LUNGS: Stable pulmonary edema and bibasilar atelectasis PLEURA: Layering pleural effusions bilaterally, left greater than right HEART AND MEDIASTINUM: Stable marked enlargement of the cardiomediastinal silhouette BONES AND SOFT TISSUES: No acute findings. IMPRESSION: No interval change. Signed by: Dr. Asya Gastelum M.D. on 06/15/2017 5:39 AM
[2017-06-15 06:56] VITALS: BP 129/65
[2017-06-15 06:57] VITALS: BP 129/65
--- NOTE | 2017-06-15 07:13 | Progress Note ---
DATE: June 15, 2017 PULMONARY MEDICINE PROGRESS NOTE SUBJECTIVE: Ms. Cox was seen and examined at bedside. She had mostly an unremarkable day yesterday. She did not walk of course due to extensive weakness. 4 liters per minute by nasal cannula. No respiratory distress episodes. No bowel movements although . She eats well. REVIEW OF SYSTEMS: No headaches, no rash. OBJECTIVE: VITAL SIGNS: Afebrile, vital signs noted per electronic record. GENERAL: In no acute distress, alert, calm. HEENT: Normocephalic, atraumatic. NECK: Supple. Throat midline. LUNGS: Bilateral air entry, rare rhonchi. CARDIOVASCULAR: S1, S2. No murmurs, rubs, or gallops. ABDOMEN: Soft, nontender. EXTREMITIES: No clubbing, no cyanosis, there is 1+ edema. INTEGUMENT: No rash, no purpura. LABS: Today's labs are pending. IMPRESSION AND PLAN: 1. Acute respiratory failure, resolving. 2. Hypoxemia. 3. Possible fluid overload, there is some component definitely. 4. Definite interstitial lung disease. 5. Debility and weakness. 6. Status post cardiac , status post automatic implantable cardioverter-defibrillator. Continue local wound care to the shoulder automatic implantable cardioverter-defibrillator site. Continue to wean down oxygen as tolerated. Follow up as she gets stronger. Patient will continue on antibiotics right now for infection including the methicillin-resistant Staphylococcus aureus pneumonia. Follow up closely. She is in guarded condition and not ready to be discharged to home. Consider long-term acute care facility placement. Job#: [id number]
[2017-06-15 07:39] LABS: BASOPHILS # (AUTO) 0.1 (0.0-0.1); BASOPHILS % 0.5 % (0.0-1.0); EOSINOPHILS # (AUTO) 0.1 (0.0-0.4); EOSINOPHILS % 1.5 % (0.0-6.0); HEMOGLOBIN 8.9 g/dL (12.0-16.0); LYMPHOCYTES # (AUTO) 1.4 (1.0-3.2); MEAN CORPUSCULAR HEMOGLOBIN 30.5 pg (28-32); MEAN CORPUSCULAR HGB CONC 29.7 g/dL (31-35); MEAN CORPUSCULAR VOLUME 102.7 fL (81-99); MONOCYTES % 10.4 % (4.4-11.3); NEUTROPHILS # (AUTO) 6.6 (2.1-6.9); NEUTROPHILS % 71.6 % (38.7-80.0); PLATELET COUNT 209 x10e3/uL (140-360); RED BLOOD COUNT 2.92 x10e6/uL (3.6-5.1); RED CELL DISTRIBUTION WIDTH 18.6 % (11.7-14.4)
[2017-06-15 08:00] LABS: ANION GAP 17.1 mmol/L (8-16); CALCIUM 8.6 mg/dL (8.4-10.2); CREATININE, SERUM 3.07 mg/dL (0.57-1.11); POTASSIUM 4.1 mmol/L (3.5-5.1)
[2017-06-15 08:32] VITALS: BP 123/52
[2017-06-15] MEDS: SODIUM FERRIC GLUCONATE COMPLX 125 MG in SODIUM CHLORIDE 0.9% 100 ML 100 ML IV SCH ×2 (09:00→09:35)
[2017-06-15] MEDS: MIDODRINE HCL 5 MG TABLET PO SCH (09:35)
[2017-06-15] MEDS: ASPIRIN 325 MG TAB PO SCH (09:35)
[2017-06-15] MEDS: BALSAM PERU/CASTOR OIL 60 GM OINT...G. TP SCH (09:35)
[2017-06-15] MEDS: GABAPENTIN 300 MG CAP PO SCH (09:35)
[2017-06-15] MEDS: AMIODARONE HCL 200 MG TAB PO SCH (09:35)
[2017-06-15] MEDS: INSULIN REGULAR, HUMAN 100 UNIT/1 ML 3ML VIAL SQ SCH (10:05)
--- NOTE | 2017-06-15 11:26 | Progress Note ---
DATE: June 15, 2017 CARDIOLOGY PROGRESS NOTE: SUBJECTIVE: Ms. Cox feels weak. She is pending transfer to [facility]. OBJECTIVE VITAL SIGNS: Afebrile. Heart rate 68. Blood pressure 122/52. CARDIOVASCULAR: Regular rhythm. Systolic murmur. LUNGS: Clear to auscultation bilaterally. Telemetry shows sinus rhythm/sinus bradycardia. Current medications reviewed. Care was discussed with nurse as well as Dr. Carr. Hemoglobin is 8.9. Serum creatinine is 3.07. ASSESSMENT 1. Ventricular tachycardia, cardiac arrest status post automatic implantable cardioverter-defibrillator placement. 2. Non ST segment elevation myocardial infarction. PLAN: Right-sided subclavian central venous line will be removed as this is abutting against her defibrillator. She will not have IV access, for which her AV fistula may be used during dialysis. She is cleared from the cardiac standpoint for transfer to [facility]. We will continue to follow her there. Job#: [id number] EV
== END 2017-06-15 11:20 | DRG 222 ==
LOC: ER 07:06 → ERHOLD 08:43 → ICU 05-31 20:39 → MED/SURG2 06-02 17:20 → ICU 06-08 21:00 → IMCU 06-12 18:43 → MED/SURG2 06-13 11:11
PROVIDERS: ADMIT Internal Medicine; ATTEND Internal Medicine
PROC: 02HV33Z Insertion of Infusion Device into Superior Vena Cava, Percutaneous Approach (ICD-10-PCS; 2017-05-30)
PROC: 5A1D70Z Performance of Urinary Filtration, Intermittent, Less than 6 Hours Per Day (ICD-10-PCS; 2017-05-30)
PROC: 30233N1 Transfusion of Nonautologous Red Blood Cells into Peripheral Vein, Percutaneous Approach (ICD-10-PCS; 2017-06-01)
PROC: 4A023N7 Measurement of Cardiac Sampling and Pressure, Left Heart, Percutaneous Approach (ICD-10-PCS; 2017-06-04)
PROC: B2011ZZ Plain Radiography of Multiple Coronary Arteries using Low Osmolar Contrast (ICD-10-PCS; 2017-06-04)
PROC: B2051ZZ Plain Radiography of Left Heart using Low Osmolar Contrast (ICD-10-PCS; 2017-06-04)
PROC: 5A1945Z Respiratory Ventilation, 24-96 Consecutive Hours (ICD-10-PCS; principal; 2017-06-08)
PROC: 0BH17EZ Insertion of Endotracheal Airway into Trachea, Via Natural or Artificial Opening (ICD-10-PCS; 2017-06-08)
PROC: 0BC18ZZ Extirpation of Matter from Trachea, Via Natural or Artificial Opening Endoscopic (ICD-10-PCS; 2017-06-10)
PROC: 0JH608Z Insertion of Defibrillator Generator into Chest Subcutaneous Tissue and Fascia, Open Approach (ICD-10-PCS; 2017-06-12)
PROC: 02HK3KZ Insertion of Defibrillator Lead into Right Ventricle, Percutaneous Approach (ICD-10-PCS; 2017-06-12)
PROC: 02H63KZ Insertion of Defibrillator Lead into Right Atrium, Percutaneous Approach (ICD-10-PCS; 2017-06-12)
DX: I21.4 Non-ST elevation (NSTEMI) myocardial infarction (principal); A41.02 Sepsis due to Methicillin resistant Staphylococcus aureus; J15.212 Pneumonia due to Methicillin resistant Staphylococcus aureus; J96.01 Acute respiratory failure with hypoxia; R65.21 Severe sepsis with septic shock; I47.2 Ventricular tachycardia; N18.6 End stage renal disease; R57.8 Other shock; I49.01 Ventricular fibrillation; R65.20 Severe sepsis without septic shock; I50.33 Acute on chronic diastolic (congestive) heart failure; K82.1 Hydrops of gallbladder; I13.2 Hypertensive heart and chronic kidney disease with heart failure and with stage 5 chronic kidney disease, or end stage renal disease; I48.92 Unspecified atrial flutter; N39.0 Urinary tract infection, site not specified; T17.490A Other foreign object in trachea causing asphyxiation, initial encounter; J84.9 Interstitial pulmonary disease, unspecified; E11.22 Type 2 diabetes mellitus with diabetic chronic kidney disease; I48.0 Paroxysmal atrial fibrillation; Z99.2 Dependence on renal dialysis; Z79.01 Long term (current) use of anticoagulants; Z89.512 Acquired absence of left leg below knee; Z88.0 Allergy status to penicillin; Z88.7 Allergy status to serum and vaccine; Z87.891 Personal history of nicotine dependence; E11.65 Type 2 diabetes mellitus with hyperglycemia; E11.51 Type 2 diabetes mellitus with diabetic peripheral angiopathy without gangrene; Z89.421 Acquired absence of other right toe(s); D63.8 Anemia in other chronic diseases classified elsewhere; L97.519 Non-pressure chronic ulcer of other part of right foot with unspecified severity; I25.10 Atherosclerotic heart disease of native coronary artery without angina pectoris; I25.84 Coronary atherosclerosis due to calcified coronary lesion; E87.70 Fluid overload, unspecified; I49.5 Sick sinus syndrome; L89.151 Pressure ulcer of sacral region, stage 1; L89.611 Pressure ulcer of right heel, stage 1
CPT/HCPCS: 33249; 36140; 36415; 36430; 36556; 36600; 71010; 71250; 74000; 74470; 76604; 76705; 76937; 77001; 77002; 78227; 80048; 80053; 80061; 81001; 82088; 82140; 82270; 82390; 82533; 82550; 82553; 82728; 82805; 82948; 83518; 83540; 83605; 83735; 83880; 84100; 84443; 84466; 84484; 85007; 85025; 85027; 85610; 85730; 86039; 86850; 86900; 86920; 87040; 87070; 87086; 87102; 87116; 87186; 87205; 87206; 87335; 87340; 87400; 89051; 90962; 92950; 93005; 93306; 93452; 93458; 93925; 94002; 94003; 94640; 94660; 97139; 99285; A9537; C1751; J0171; J0692; J0834; J1644; J1956; J2001; J2150; J2250; J2270; J2805; J2916; J3370; J7030; J7040; J7050; P9016; Q4081

== ENCOUNTER 2018-01-17 22:33 | Emergency (ER) | payer MEDICARE ==
[~2018-01-17] VITALS: Ht 167.6 cm; Wt 71.7 kg
[~2018-01-17 22:33] MED LIST changes: +GABAPENTIN300 MG PO; +NORCO 7.5-3251 EACH PO
[2018-01-18 01:24] VITALS: BP 171/76
== END 2018-01-18 01:33 | disposition home or self-care (01) ==
LOC: ER 22:33
DX: H61.21 Impacted cerumen, right ear (principal); I12.0 Hypertensive chronic kidney disease with stage 5 chronic kidney disease or end stage renal disease; E11.22 Type 2 diabetes mellitus with diabetic chronic kidney disease; N18.6 End stage renal disease; Z99.2 Dependence on renal dialysis; I50.9 Heart failure, unspecified; I25.2 Old myocardial infarction
CPT/HCPCS: 99283

== ENCOUNTER 2018-02-25 15:20 | Inpatient (IN) | payer MEDICARE ==
[~2018-02-25] VITALS: Ht 167.6 cm; Wt 71.8 kg
[2018-02-25] MEDS ORDERED: ONDANSETRON HCL INJ 2 MG/ML VIAL IV PRN (19:00)
[2018-02-25] MEDS ORDERED: MORPHINE SULFATE 2 MG/ML SYR IV PRN (19:00)
[2018-02-25 20:14] LABS: BASOPHILS # (AUTO) 0.1 (0.0-0.1); BASOPHILS % 0.6 % (0.0-1.0); EOSINOPHILS # (AUTO) 0.2 (0.0-0.4); EOSINOPHILS % 2.1 % (0.0-6.0); HEMATOCRIT 43.1 % (34.2-44.1); HEMOGLOBIN 13.1 g/dL (12.0-16.0); LYMPHOCYTES # (AUTO) 2.2 (1.0-3.2); LYMPHOCYTES % 27.3 % (18.0-39.1); MEAN CORPUSCULAR HEMOGLOBIN 27.1 pg (28-32); MEAN CORPUSCULAR HGB CONC 30.4 g/dL (31-35); MEAN CORPUSCULAR VOLUME 89.2 fL (81-99); MONOCYTES # (AUTO) 0.5 (0.2-0.8); MONOCYTES % 6.5 % (4.4-11.3); NEUTROPHILS # (AUTO) 5.2 (2.1-6.9); NEUTROPHILS % 63.3 % (38.7-80.0); PLATELET COUNT 105 x10e3/uL (140-360); RED BLOOD COUNT 4.83 x10e6/uL (3.6-5.1); RED CELL DISTRIBUTION WIDTH 17.2 % (11.7-14.4)
[2018-02-25 20:22] LABS: INR 0.95; PROTHROMBIN TIME 13.5 seconds (11.9-14.5)
[2018-02-25 20:23] LABS: PARTIAL THROMBOPLASTIN TIME 26.9 seconds (23.8-35.5)
[2018-02-25 20:29] LABS: ALBUMIN 3.5 g/dL (3.5-5.0); ALBUMIN/GLOBULIN RATIO 0.7 (0.8-2.0); ANION GAP 16.5 mmol/L (8-16); CALCIUM 10.1 mg/dL (8.4-10.2); CREATININE, SERUM 2.8 mg/dL (0.57-1.11); POTASSIUM 3.5 mmol/L (3.5-5.1)
[2018-02-25 20:35] LABS: CREATINE KINASE MB 1.9 ng/mL (0-5.0)
--- NOTE | 2018-02-25 20:44 | History and Physical ---
HISTORY OF PRESENT ILLNESS: A 77-year-old female, with past medical history positive for end-stage renal disease, on dialysis, history of diabetes mellitus, history of congestive heart failure, history of peripheral vascular disease, status post is bilateral below-knee amputation, came to the hospital for an elective readmission by Dr. Suh for nephrectomy due to a mass of her kidney. REVIEW OF SYSTEMS CARDIOVASCULAR: No chest pain or palpitation. RESPIRATORY: No shortness of breath, no cough. GASTROINTESTINAL: No nausea. No vomiting. No diarrhea. GENITOURINARY: No frequency. No dysuria. ALLERGIES: LISTED ON THE CHART. SOCIAL HISTORY: She does not drink alcohol. She used to smoke. PAST MEDICAL HISTORY: Positive for diabetes; end-stage renal disease, on dialysis; renal mass; hypertensive; nephropathy; chronic diastolic congestive heart failure; peripheral vascular disease, status post bilateral below knee amputation. PHYSICAL EXAMINATION VITAL SIGNS: Blood pressure 180/85, temperature is 98.9 degrees Fahrenheit, heart rate 78 per minute, respiratory rate 20 per minute, oxygen saturation 100%. HEART: Regular rhythm. Normal S1 and S2 sounds. LUNGS: Clear bilaterally. ABDOMEN: Soft. EXTREMITIES: Show bilateral below-knee amputations. FINAL IMPRESSION 1. Uncontrolled diabetes mellitus type 2 with end-stage renal disease. 2. End-stage renal disease, on dialysis. 3. Prior renal mass. 4. Hypertensive nephropathy. 5. Chronic diastolic congestive heart failure. 6. Peripheral vascular disease, status post bilateral below-knee amputations. PLAN OF TREATMENT: Continue dialysis. Continue insulin regimen. Continue with monitoring blood sugar a.c. and nightly. Diabetic and renal diet. Urology consult with Dr. Suh. Cardiology consult with Dr. Lagos for cardiology clearance prior to nephrectomy. Nephrology consult with Dr. Ennis. Resume home medications. Job#: [id number]
[2018-02-25 21:20] VITALS: BP 174/77
[2018-02-25 21:31] VITALS: BP 174/77
[2018-02-25 22:23] VITALS: BP 174/77
[2018-02-26] VITALS (8 sets, daily range): BP systolic 113–173; BP diastolic 54–80
[2018-02-26] MEDS ORDERED: DEXTROSE 50% SYRINGE 50 ML IV PRN (06:45)
[2018-02-26] MEDS: INSULIN REGULAR, HUMAN 100 UNIT/1 ML 3ML VIAL SQ SCH ×4 (07:30→21:58)
[2018-02-26] MEDS: GABAPENTIN 300 MG CAP PO SCH ×4 (08:48→21:58)
[2018-02-26] MEDS: HYDROCODONE/APAP 7.5MG-325MG 1 EA TAB PO PRN ×3 (08:58→21:58)
--- NOTE | 2018-02-26 14:09 | Consultation ---
DATE OF CONSULTATION: February 26, 2018 CARDIOLOGY CONSULTATION REFERRING PHYSICIAN: Oscar Luna MD CHIEF COMPLAINT: Chest pain. HISTORY OF PRESENT ILLNESS: Ms. Cox is a pleasant, 77-year-old woman with a history of diabetes, hypertension, dyslipidemia, COPD, status post ICD in the setting of ventricular ectopy on prior admission, status post bilateral BKA. She reported dyspnea on exertion to minimal activity and is otherwise on home O2. Some atypical chest pain reported. She has been undergoing evaluation for perioperative assistance for a left nephrectomy with bilateral adrenal masses also noted. Urology is following. She was scheduled for an outpatient stress test; however, this appointment was missed. She presents via the ER with complaints of chest discomfort and dyspnea on exertion to minimal activity. We discussed in detail the indications, alternatives, risks and benefits of proceeding with further evaluation. We will schedule for a stress test for further risk stratification. TWELVE-SYSTEM REVIEW: Negative except as stated above. ALLERGIES: TETANUS, PENICILLIN. PAST MEDICAL HISTORY: Significant for COPD, status post AICD, hypertension, diabetes, dyslipidemia, status post bilateral BKA. SOCIAL HISTORY: Smoker. FAMILY HISTORY: Noncontributory. PHYSICAL EXAMINATION VITAL SIGNS: Temperature 96 degrees, heart rate 70, respiratory rate 18, blood pressure 145/67, O2 sat 99% on room air. GENERAL: No acute distress. Alert. NECK: No JVD. CHEST: Clear to auscultation. CARDIOVASCULAR: Regular rate and rhythm, normal S1 and S2. No S3. No S4. ABDOMEN: Soft. EXTREMITIES: Bilateral BKA. CARDIOVASCULAR MEDICATIONS: Reviewed. LABS: Reviewed. Potassium 3.5, sodium 139, chloride 101, bicarbonate 25, BUN 28, creatinine 2.8, glucose 78. Hemoglobin 13.1. Platelets 105. INR 0.9. AST 15, ALT 10. ASSESSMENT 1. Atypical chest pain. 2. Dyspnea on exertion, [place] Heart Association functional class III, which could be attributable to chronic obstructive pulmonary disease. However, cannot rule out anginal equivalent. 3. Hypertension. 4. Diabetes mellitus. 5. Dyslipidemia. 6. History of smoking. 7. Bilateral below-knee amputations. 8. Left renal mass with adrenal mass. RECOMMENDATIONS: Schedule for a stress test today. Resume cardiovascular medications. Further recommendations to follow. She has an elevated creatinine consistent with CKD at 2.7 and 2.5. Will monitor. Job#: [id number] MH
[2018-02-26] MEDS ORDERED: SODIUM CHLORIDE 0.9% 250ML 500 ML IV PRN (14:15)
[2018-02-26] MEDS ORDERED: MANNITOL 25% 12.5GM/50 ML VIAL IV PRN (14:15)
[2018-02-26] MEDS ORDERED: ALBUMIN 25% 12.5GM 0.25 GM/ML BTL IV PRN (14:15)
[2018-02-26] MEDS ORDERED: SODIUM CHLORIDE 0.9% 1000ML 2,000 ML IV PRN (14:15)
--- NOTE | 2018-02-26 14:21 | Consultation ---
DATE OF CONSULTATION: RENAL CONSULT HISTORY OF PRESENT ILLNESS: This is a 77-year-old female with end-stage renal disease, on hemodialysis Saturday, Saturday and Saturday who was admitted complaining of neck pain and she was admitted to the hospital for elective re-admission for nephrectomy. PAST MEDICAL HISTORY: Include 1. ESRD. 2. Type 2 diabetes mellitus. 3. Renal mass. 4. Hypertension. 5. Chronic diastolic congestive heart failure. 6. Peripheral vascular disease. 7. Status post bilateral BKA. ALLERGIES: PENICILLIN, TETANUS AND TOXOID. FAMILY HISTORY: Noncontributory. SOCIAL HISTORY: No smoking, no alcohol, and no drugs. REVIEW OF SYSTEMS: Positive for neck pain. No shortness of breath. No chest pain. No blood in the stool. No blood in the urine. No sensory loss. No motor loss. No skin changes. No depression. No enlarged lymph nodes. Basically otherwise negative. PHYSICAL EXAMINATION GENERAL: Alert, following commands. HEENT: Pupils equal and reactive to light and accommodation. NECK: No JVD. No bruits. LUNGS: No rhonchi. No rales. HEART: Regular rate and rhythm. No S3, no S4. ABDOMEN: Nontender, nondistended. No hepatosplenomegaly. EXTREMITIES: No clubbing, cyanosis or edema. NEUROLOGICAL: Cranial nerves II through XII grossly intact. Sensation is intact. Motor is intact. Status post bilateral BKA. VITAL SIGNS: Blood pressure 145/67. Afebrile. LABORATORY STUDIES: White count 8.2, hemoglobin 13. Sodium 139, potassium 3.5, creatinine 2.8, and albumin 3.5. ASSESSMENT AND PLAN 1. End-stage renal disease, on hemodialysis. Patient will be scheduled for dialysis today. 2. Anemia of chronic disease, currently stable. 3. Hypertension. Currently stable. 4. Diabetes. Currently his glucose is 78. 5. Renal mass. She is going for nephrectomy by Dr. Suh once she is cleared by cardiology. Job#: [id number] RODRIGUEZ
[2018-02-26] MEDS ORDERED: HEPARIN SOD (PORCINE) 1000 UNIT/ML SDV IV PRN (16:00)
[2018-02-26] MEDS: METOPROLOL SUCCINATE 25 MG TAB XL PO SCH (18:50)
--- NOTE | 2018-02-26 19:21 | Progress Note ---
DATE: INTERNAL MEDICINE PROGRESS NOTE SUBJECTIVE: She is kind of sleepy right now due to dialysis. PHYSICAL EXAM VITAL SIGNS: Blood pressure 129/54. Temperature 95.7. Heart rate 76 per minute. Respiratory rate is 18 per minute. Oxygen saturation 98%. HEART: Regular rhythm. Normal S1, S2 sounds. LUNGS: Clear bilaterally. ABDOMEN: Soft. EXTREMITIES: Show bilateral below-knee amputation. LABS: On the blood work, we have BMP, sodium 139, potassium 3.5, chloride 101, CO2 25. BUN 28, creatinine 2.80, glucose 78. On the CBC, white blood count 8.20, hemoglobin 13.1, hematocrit 43.1, platelet count 505,000. PT 13.5, INR 0.85, PTT 26.9. AST 15, ALT 10, total bilirubin 0.4, alkaline phosphatase 114. FINAL IMPRESSION 1. 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 2. End-stage renal disease, on dialysis. 3. Right renal mass. 4. Hypertension with hypertensive nephropathy. 5. Chronic diastolic congestive heart failure. 6. Peripheral vascular disease, status post bilateral below-knee amputation. 7. Left renal mass. PLAN OF TREATMENT: We are going to get a cardiology consult with Dr. Alin Lagos, cardiology, for cardiac clearance prior to left nephrectomy due to the renal mass. Continue with dialysis. Continue with monitoring blood sugar a.c. and nightly. Continue [place] 1 tablet q.6 h. as needed for pain, Lipitor 40 mg daily, gabapentin 300 mg q.6 h., metoprolol 12.5 mg daily. Continue Zofran 4 mg IV q.4 h. as needed. Continue rest of the home medications. Continue diabetic renal diet. Monitor blood sugar a.c. and nightly. We are waiting on the cardiac clearance for the nephrectomy by Dr. Suh. Dr. Lagos is the barrel charrer. Dr. Ennis is seeing the patient from nephrology point of view. Job#: [id number]
[2018-02-26] MEDS: ATORVASTATIN 40 MG TAB PO SCH (21:58)
[2018-02-27] VITALS (8 sets, daily range): BP systolic 102–133; BP diastolic 54–60
[2018-02-27] MEDS: INSULIN REGULAR, HUMAN 100 UNIT/1 ML 3ML VIAL SQ SCH ×4 (07:30→20:54)
[2018-02-27] MEDS: METOPROLOL SUCCINATE 25 MG TAB XL PO SCH (08:17)
[2018-02-27] MEDS: HYDROCODONE/APAP 7.5MG-325MG 1 EA TAB PO PRN ×3 (08:17→23:06)
[2018-02-27] MEDS: GABAPENTIN 300 MG CAP PO SCH ×4 (08:17→20:53)
[2018-02-27] MEDS ORDERED: ATORVASTATIN 20 MG TAB PO SCH (09:00)
--- NOTE | 2018-02-27 11:27 | Progress Note ---
DATE: February 27, 2018 INTERNAL MEDICINE PROGRESS NOTE SUBJECTIVE: She is doing okay today. PHYSICAL EXAMINATION VITAL SIGNS: Blood pressure 133/56. Temperature 97.1. Heart rate 68 per minute. Respiratory rate 18 per minute. Oxygen saturation 100%. HEART: Regular rhythm. Normal S1 and S2 sounds. LUNGS: Clear bilaterally. ABDOMEN: Soft. EXTREMITIES: Bilateral below-knee amputations. LABS: On the BMP, sodium is 139, potassium 3.5, chloride 101, CO2 25. BUN 28, creatinine 2.80. Glucose 78. On the CBC, white blood count 8.20, hemoglobin 13.1, hematocrit 43.1, platelet count 105,000. PT 13.5, PTT 26.9, INR 0.95. AST 15, ALT 10, total bilirubin 0.4, alkaline phosphatase 114. FINAL IMPRESSION 1. Left renal mass. The patient is going for a nephrectomy once cleared by cardiology. 2. Chronic systolic and diastolic congestive heart failure. 3. End-stage renal disease on dialysis. 4. Hypertension with hypertensive nephropathy. 5. Hypercholesterolemia. 6. Chronic pain syndrome. 7. Diabetic neuropathy. PLAN OF TREATMENT: Continue morphine 2 mg IV q.4 h. as needed. Continue with gabapentin 300 mg q.6 h., metoprolol 12.5 mg daily, heparin 3,000 units during dialysis as needed, [place] 1 tablet q.6 h. as needed, Lipitor 40 mg at bedtime. Continue monitoring blood sugar a.c. and nightly. I discussed the case with the patient. Dr. Lagos of cardiology is doing the workup from the cardiology point of view including echocardiogram and stress test in order to do the preop cardiac evaluation prior to the nephrectomy. Once she is cleared by medical insurance claims processor, then the patient can have the nephrectomy. Dr. Suh is on the case for that. Continue renal and diabetic diet. Job#: [id number]
--- NOTE | 2018-02-27 15:55 | Cardiology Report ---
DATE OF STUDY: February 26, 2018 PROCEDURE: Lexiscan myocardial perfusion 2-day protocol rest and stress. PROCEDURE INDICATIONS: Dyspnea on exertion, NYHA functional class III, concerning for angina pectoris CCS III, in a patient with multiple vascular risk factors undergoing preoperative evaluation for a renal mass by urology. INTERPRETING AND SUPERVISING PHYSICIAN: Alin Lagos MD, interventional cardiology. At rest, the heart rate was 67 and blood pressure 123/56. Resting EKG reveals normal sinus rhythm with nonspecific repolarization abnormality. After Lexiscan was administered, the heart rate nathan to 80 beats per minute. The blood pressure decreased to 109/40. There were no significant ST changes or arrhythmias throughout stress or recovery. Myocardial perfusion reveals fixed rest and stress, small size, mid to apical anterior, moderate severity, perfusion defect. Gated images demonstrated mild global impairment of left ventricular systolic function with left ventricular ejection fraction of 40% and global hypokinesis. CONCLUSIONS 1. Normal hemodynamic response to Lexiscan stress. 2. Normal electrocardiographic response to Lexiscan stress. 3. Abnormal myocardial perfusion with moderate size, moderate severity, mid to apical anterior nontransmural scar. 4. Cardiomyopathy with mild global impairment of left ventricular systolic function with left ventricular ejection fraction of 40%. Job#: [id number]
--- NOTE | 2018-02-27 16:31 | Progress Note ---
DATE: February 27, 2018 CARDIOLOGY PROGRESS NOTE SUBJECTIVE: No complaints. OBJECTIVE VITAL SIGNS: Temperature 96.9, heart rate 66, respiratory rate 18, blood pressure 107/54, O2 sat 99% on nasal cannula. GENERAL: No acute distress. Alert. NECK: No JVD. CHEST: Scattered rhonchi. CARDIOVASCULAR: Regular rate and rhythm. Normal S1 and S2. No S3, no S4. ABDOMEN: Soft. EXTREMITIES: Bilateral BKA. CARDIOVASCULAR MEDICATIONS: Reviewed. 1. Metoprolol succinate 12.5 mg daily. 2. Atorvastatin 40 mg nightly. STUDIES: Reviewed. White blood cells 8.2, hemoglobin 13.1, platelets 105. INR 0.9. Glucose 142. Most recent creatinine was 2.8. TELEMETRY: Normal sinus rhythm. ASSESSMENT: Abnormal stress test with moderate-sized moderate-severity mid to apical anterior nontransmural scar and mild global impairment of LV systolic function with a LV ejection fraction of 40%. RECOMMENDATIONS: I discussed extensively with the patient indications, alternatives, risks and management for her abnormal stress test significantly concerning for CAD. The patient is a vasculopath. Her cardiopulmonary reserve is limited. Her surgical risk is going to be at least moderate. I have extensively discussed with the patient as well as with Dr. Suh. Will proceed with left heart catheterization for further risk stratification. Further recommendations based on this. Continue beta blockers. She would benefit from a left nephrectomy pending confirmation of risk assessment. Will coordinate care with Urology post angiogram scheduled for tomorrow. Job#: [id number] JANY
[2018-02-27] MEDS: ATORVASTATIN 40 MG TAB PO SCH (20:53)
[2018-02-28] VITALS (15 sets, daily range): BP systolic 80–120; BP diastolic 40–81
[2018-02-28 06:08] LABS: BASOPHILS # (AUTO) 0.1 (0.0-0.1); BASOPHILS % 0.7 % (0.0-1.0); EOSINOPHILS # (AUTO) 0.3 (0.0-0.4); EOSINOPHILS % 3.8 % (0.0-6.0); HEMATOCRIT 37.8 % (34.2-44.1); HEMOGLOBIN 11.2 g/dL (12.0-16.0); LYMPHOCYTES # (AUTO) 2.3 (1.0-3.2); LYMPHOCYTES % 32.9 % (18.0-39.1); MEAN CORPUSCULAR HEMOGLOBIN 26.9 pg (28-32); MEAN CORPUSCULAR HGB CONC 29.6 g/dL (31-35); MEAN CORPUSCULAR VOLUME 90.9 fL (81-99); MONOCYTES # (AUTO) 0.5 (0.2-0.8); MONOCYTES % 6.9 % (4.4-11.3); NEUTROPHILS # (AUTO) 3.9 (2.1-6.9); NEUTROPHILS % 55.4 % (38.7-80.0); PLATELET COUNT 91 x10e3/uL (140-360); RED BLOOD COUNT 4.16 x10e6/uL (3.6-5.1); RED CELL DISTRIBUTION WIDTH 17.3 % (11.7-14.4)
[2018-02-28 06:22] LABS: INR 0.93; PROTHROMBIN TIME 13.3 seconds (11.9-14.5)
[2018-02-28 06:23] LABS: PARTIAL THROMBOPLASTIN TIME 26.6 seconds (23.8-35.5)
[2018-02-28 06:38] LABS: ANION GAP 15.9 mmol/L (8-16); CALCIUM 9.2 mg/dL (8.4-10.2); CREATININE, SERUM 4.59 mg/dL (0.57-1.11); POTASSIUM 3.9 mmol/L (3.5-5.1)
[2018-02-28] MEDS: INSULIN REGULAR, HUMAN 100 UNIT/1 ML 3ML VIAL SQ SCH ×4 (07:30→21:00)
[2018-02-28] MEDS: GABAPENTIN 300 MG CAP PO SCH ×4 (07:59→20:52)
[2018-02-28] MEDS: METOPROLOL SUCCINATE 25 MG TAB XL PO SCH (07:59)
[2018-02-28] MEDS ORDERED: MIDAZOLAM HCL 2 MG/2 ML VIAL ONE (08:52)
[2018-02-28] MEDS ORDERED: HEPARIN SOD/SOD CHLORIDE 2,000 ML ONE (08:52)
[2018-02-28] MEDS ORDERED: IOPAMIDOL 370 MG/ML 200 ML INFUS..BTL INJ ONE (08:52)
[2018-02-28] MEDS ORDERED: LIDOCAINE HCL 2% LOCAL 20 ML VIAL ONE (08:52)
[2018-02-28] MEDS ORDERED: FENTANYL CITRATE/PF 100MCG/2 ML INJ ONE (08:52)
[2018-02-28] MEDS ORDERED: SODIUM CHLORIDE 0.9% 1000ML 1,000 ML ONE (08:52)
[2018-02-28] MEDS ORDERED: VERAPAMIL HCL 2.5 MG/ML 2 ML VIAL ONE (10:04)
[2018-02-28] MEDS ORDERED: HEPARIN SOD (PORCINE) 1000 UNIT/ML 30ML ONE (10:04)
[2018-02-28] MEDS ORDERED: NITROGLYCERIN/D5W 200 MCG/ML 250 ML ONE (10:04)
[2018-02-28] MEDS ORDERED: METOPROLOL TARTRATE 25 MG TAB PO SCH (11:15)
--- NOTE | 2018-02-28 11:30 | Progress Note ---
DATE: February 28, 2018 CARDIOLOGY PROGRESS NOTE SUBJECTIVE: No new complaints. Status post cardiac catheterization. OBJECTIVE VITAL SIGNS: Temperature 97.6, heart rate 60, respiratory rate 16, blood pressure 96/48, O2 sat 100% on nasal cannula. GENERAL: No acute distress. Alert. NECK: No JVD. CHEST: Scattered rhonchi. CARDIOVASCULAR: Regular rate and rhythm. Normal S1 and S2. No S3, no S4. ABDOMEN: Soft. EXTREMITIES: Bilateral BKA. CARDIOVASCULAR MEDICATION: Atorvastatin 40 mg nightly. STUDIES: White blood cells 7.08, hemoglobin 11.2, platelets 91. INR 0.9. Sodium 132, potassium 3.9, chloride 97, bicarbonate 24, BUN 41, creatinine 4.5, glucose 169, calcium 9.2. TELEMETRY: Sinus rhythm. ASSESSMENT 1. Multivessel severe coronary artery disease. 2. Dyslipidemia. 3. Severe chronic obstructive pulmonary disease. 4. Chronic systolic heart failure, mild, with left ventricular ejection fraction 40%, compensated. RECOMMENDATIONS: Given multivessel coronary artery disease and chronic systolic heart failure, the patient is at elevated risk for adverse cardiac outcomes with noncardiac surgery. Her blood pressure somewhat limits use of beta madeleine. However, will attempt low-dose metoprolol 12.5 mg once a day and assess response. If tolerated, this would be preferable for perioperative risk management. Understanding elevated risk for adverse cardiovascular outcomes overall, the patient would benefit from nephrectomy first prior to consideration of any possible bypass assessment, given limitations on use of antiplatelets preceding this. This has been extensively discussed with the patient and family members and coordinated care with Dr. Suh of urology who is aware of the case. Job#: [id number]
[2018-02-28] MEDS: BALSAM PERU/CASTOR OIL 60 GM OINT...G. TP SCH ×2 (13:25→21:01)
[2018-02-28] MEDS: HYDROCODONE/APAP 7.5MG-325MG 1 EA TAB PO PRN ×2 (13:25→20:53)
--- NOTE | 2018-02-28 13:37 | Operative Report ---
DATE OF PROCEDURE: February 28, 2018 PROCEDURE INDICATIONS: Dyspnea on exertion, NYHA functional class III, in patient with advanced COPD and concern for atypical symptoms, possibly unstable angina, abnormal stress test with mid to apical anterior nontransmural scar, mild cardiomyopathy with LVEF of 40%. PROCEDURES PERFORMED 1. Selective coronary angiography. 2. Right radial transradial band hemostasis. PROCEDURE COMPLICATIONS: None. ESTIMATED BLOOD LOSS: Less than 15 mL. PROCEDURE SUMMARY: After consent was obtained, the patient was prepped and draped in a sterile fashion. Right radial site was locally infiltrated with 2% lidocaine. Access was obtained with a single anterior stick and a 5-Indian outer diameter Slender sheath advanced. A TIG catheter was used for engagement of the right coronary artery and a JL3.5, 5-Indian catheter for engagement of the left main. The aortic valve was not crossed. The following findings were observed: 1. Heavy calcifications are noted throughout the extent of the arteries including the aortic arch and ascending aorta as well as throughout the whole coronary artery tree. 2. Left main has 40% to 50% eccentric stenosis in the proximal segment. It gives a large caliber LAD and has a small caliber and diffusely diseased circumflex. 3. The proximal LAD is heavily calcified with an area of 70% stenosis preceding a septal human resources psychologist of small caliber. The 1st diagonal has 70% proximal stenosis and is overall small in caliber. The 2nd diagonal has 80% ostial stenosis and is small in caliber. The apical LAD has another area of focal 70% stenosis and is heavily calcified. 4. The circumflex has 50% diffuse disease and is small in caliber. 5. The right coronary artery is dominant with a proximal 30% stenosis. In the mid portion, 70% heavily calcified stenosis in between 2 RV marginals of small caliber. In the distal RCA, 30% stenosis prior to giving an RPDA and RPLV. CONCLUSION: Severe multivessel coronary artery disease. RECOMMENDATIONS 1. Given the patient has a renal mass and possible adrenal metastases/masses, urologic evaluation for prompt surgery is underway. Ms. Cox has had issues with antiplatelet agents. Baby aspirin 81 mg daily has caused issues with easy bruising and bleeding. The patient is hesitant to resume. 2. Her systolic blood pressure is ranging in the low 100s without beta madeleine. Attempt low-dose beta madeleine and assess response. If elevated, low-dose beta madeleine would assist with decreasing risk for adverse cardiovascular outcomes. 3. She is at moderate to high risk for adverse cardiovascular outcomes with noncardiac surgery. However, her chronic systolic heart failure and CAD are stable with stable angina and stable chronic systolic heart failure. At this point, no unstable cardiac issues are identified. 4. The options include: Proceed with nephrectomy with an elevated risk for adverse cardiovascular outcomes. Following this, consider evaluation for aortocoronary bypass depending on continued outcome and recovery. Alternatively, if the patient prefers and in conjunction with other treating physicians, particularly with urology, consideration of aortocoronary bypass evaluation first and after this consider proceeding with her nephrectomy can be discussed. I, however, feel at this point there is some sense of urgency with the renal mass, and this can adversely affect her survival and has some urgency time-alfredo. I understand Ms. Cox's functional status, COPD and end-stage renal disease put her at elevated risk for adverse cardiovascular outcomes with surgery, and her prognosis overall is guarded. Another alternative would be to consider palliative management and conservative approach towards her medical illnesses. Multidisciplinary approach to Ms. Cox is indicated at this point. Job#: [id number]
[2018-02-28] MEDS: ATORVASTATIN 40 MG TAB PO SCH (20:52)
[2018-03-01] VITALS: BP 96/54
[2018-03-01] MEDS ORDERED: SODIUM CHLORIDE 0.9% 250ML 250 ML IV ONE ×2 (03:00)
[2018-03-01 04:00] VITALS: BP 87/52
--- NOTE | 2018-03-01 05:05 | Discharge Summary ---
HISTORY OF PRESENT ILLNESS: A 77-year-old female with past medical history positive for coronary artery disease, congestive heart failure, end-stage renal disease on dialysis, diabetes mellitus with end-stage renal disease, history of peripheral vascular disease with bilateral below-knee amputations, came here because of left renal mass and elective nephrectomy by Dr. Suh. Patient asked Dr. Alin Lagos, cardiology to see the patient for preop evaluation for a cardiac point of view. Dr. Lagos did a cardiac cath and found that the patient has severe triple vessel disease that requires CABG. He found left coronary artery with 40% stenosis, circumflex 50% stenosis, 70% stenosis in right coronary artery, essentially he recommended coronary artery bypass grafting which is at very high risk in this patient that had multiple medical conditions. She is on dialysis. She is a panvascular patient with peripheral vascular disease and coronary artery disease, end-stage renal disease. She had CVA in the past. So, Dr. Vinay Cisneros, cardiovascular surgeon going to be seeing the patient and most likely going to be transferred to [facility] to perform the coronary artery bypass grafting. PHYSICAL EXAM VITAL SIGNS: Blood pressure 120/56, temperature 98.0, heart rate 67 per minute, respiratory rate 18 per minute. Oxygen saturation is 97%. HEART: Shows regular rhythm. LUNGS: Clear bilaterally. EXTREMITIES: Show bilateral below-knee amputation. LAB: On the BMP: Sodium 132, potassium 3.9, chloride 96, CO2 of 24, BUN 41, creatinine 4.59, and glucose 169. On the CBC: White blood count 7.08, hemoglobin 11.2, hematocrit 37.8, platelet count 91,000. PT 13.3, PTT 26.6. INR 0.8. AST 15, ALT 10. Total bilirubin 0.4, alkaline phosphatase 114. FINAL IMPRESSIONS 1. Coronary artery disease with triple vessel disease that require coronary artery bypass grafting. 2. Left renal mass. 3. End-stage renal disease on dialysis. 4. Uncontrolled diabetes mellitus type 2 with end-stage renal disease. 5. Peripheral vascular disease, status post bilateral below-knee amputation. 6. Hypercholesterolemia. 7. Anemia of chronic disease. 8. Chronic systolic and diastolic congestive heart failure. PLAN OF TREATMENT: Patient is going to be transferred probably [facility] by Dr. Vinay Cisneros to perform a coronary artery bypass grafting if okay with the patient. Continue gabapentin 300 mg q.6 hours, metoprolol 12.5 mg daily. Continue Lipitor 40 mg daily. Monitor blood sugar a.c. and h.s. She is going to do require at least an aspirin 81 mg daily. Patient has very guarded prognosis due to the multiple medical conditions including end-stage renal disease, peripheral vascular disease status post below-knee amputation bilaterally. She also has coronary artery disease. She also has congestive heart failure. She also has diabetes mellitus which is being very uncontrolled due to noncompliant with diet. She has hypercholesterolemia. She has anemia of chronic disease. So, she is a very high risk patient for any kind of surgery. So, hopefully, she will be accepted by Dr. Vinay Cisneros, cardiovascular surgeon for possible coronary artery bypass grafting, and if the patient agreed with that. The nephrectomy can be done after the bypass if she is in a stable condition for doing that. Job#: [id number] AARON
[2018-03-01 07:21] VITALS: BP 111/63
[2018-03-01 07:55] VITALS: BP 111/63
[2018-03-01] MEDS: BALSAM PERU/CASTOR OIL 60 GM OINT...G. TP SCH (07:56)
[2018-03-01] MEDS: INSULIN REGULAR, HUMAN 100 UNIT/1 ML 3ML VIAL SQ SCH ×2 (07:56→12:02)
[2018-03-01] MEDS: GABAPENTIN 300 MG CAP PO SCH (07:56)
[2018-03-01] MEDS: METOPROLOL SUCCINATE 25 MG TAB XL PO SCH (07:56)
[2018-03-01] MEDS: HYDROCODONE/APAP 7.5MG-325MG 1 EA TAB PO PRN (07:57)
[2018-03-01] MEDS ORDERED: ASPIRIN 325 MG TAB PO SCH (09:00)
[2018-03-01 11:12] VITALS: BP 115/58
== END 2018-03-01 15:17 | disposition short-term general hospital (02) | DRG 699 ==
LOC: ER 15:20 → ERHOLD 18:48 → MED/SURG3 21:16
PROVIDERS: ADMIT Internal Medicine; ATTEND Internal Medicine
PROC: 4A023N7 Measurement of Cardiac Sampling and Pressure, Left Heart, Percutaneous Approach (ICD-10-PCS; principal; 2018-02-28)
PROC: B2111ZZ Fluoroscopy of Multiple Coronary Arteries using Low Osmolar Contrast (ICD-10-PCS; 2018-02-28)
PROC: B2151ZZ Fluoroscopy of Left Heart using Low Osmolar Contrast (ICD-10-PCS; 2018-02-28)
PROC: 5A1D70Z Performance of Urinary Filtration, Intermittent, Less than 6 Hours Per Day (ICD-10-PCS; 2018-02-28)
DX: N28.89 Other specified disorders of kidney and ureter (principal); I13.2 Hypertensive heart and chronic kidney disease with heart failure and with stage 5 chronic kidney disease, or end stage renal disease; I50.42 Chronic combined systolic (congestive) and diastolic (congestive) heart failure; I42.9 Cardiomyopathy, unspecified; I25.110 Atherosclerotic heart disease of native coronary artery with unstable angina pectoris; E11.22 Type 2 diabetes mellitus with diabetic chronic kidney disease; E11.65 Type 2 diabetes mellitus with hyperglycemia; N18.6 End stage renal disease; Z99.2 Dependence on renal dialysis; Z79.4 Long term (current) use of insulin; Z89.512 Acquired absence of left leg below knee; Z89.511 Acquired absence of right leg below knee; E11.51 Type 2 diabetes mellitus with diabetic peripheral angiopathy without gangrene; E78.5 Hyperlipidemia, unspecified; J44.9 Chronic obstructive pulmonary disease, unspecified; G89.4 Chronic pain syndrome; E11.40 Type 2 diabetes mellitus with diabetic neuropathy, unspecified; D63.8 Anemia in other chronic diseases classified elsewhere
CPT/HCPCS: 36415; 78452; 80048; 80053; 82550; 82553; 82948; 84484; 85025; 85610; 85730; 86704; 86706; 87340; 90962; 93005; 93017; 93306; 93454; 99284; A9502; J1644; J2001; J2250; J7030; J7050; Q9967

== ENCOUNTER 2018-10-28 16:02 | Inpatient (IN) | payer MEDICARE ==
[~2018-10-28] VITALS: Ht 167.6 cm; Wt 71.3 kg
--- OUTSIDE RECORDS SUMMARY | 2018-10-28 16:08 | XMS REPORT | Clinical Summary ---
Author Author [facility] Address Unknown Phone Unavailable Care Team Providers Care Puppy Walker Name Role Phone Oscar Luna MD PCP Allergies Comments Active Allergy Reactions Severity Noted Date Penicillins Hives 03/01/2018 Tetanus Vaccines And Anaphylaxis High 03/01/2018 Toxoid Medications End Date Status Medication Sig Dispensed Refills Start Date Active HYDROcodone-acetaminophen Take 1 tablet 0 (NORCO) 7.5-325 mg per by mouth tablet every 6 (six) hours as needed for moderate pain. 03/11/2018 Discontinued gabapentin (NEURONTIN) Take 400 mg 0 400 mg capsule by mouth 4 (four) times a day. 03/18/2018 Discontinued insulin 70/30 NPH and Inject under 0 regular human (HumuLIN the skin. Pt 70/30) 100 unit/mL states she (70-30) injection takes it according to her BS as needed 04/10/2018 atorvastatin (LIPITOR) 40 Take 1 tablet 30 tablet 0 MG tablet (40 mg total) 8 by mouth nightly for 30 days. 03/18/2018 Discontinued lisinopril Take 1 tablet 30 tablet 0 (PRINIVIL,ZESTRIL) 2.5 mg (2.5 mg 8 tablet total) by mouth daily for 30 days. 04/10/2018 metoprolol tartrate Take 0.5 30 tablet 0 (LOPRESSOR) 25 mg tablet tablets (12.5 8 mg total) by mouth 2 (two) times a day for 30 days. 04/10/2018 aspirin (ECOTRIN) 81 MG Take 1 tablet 30 tablet 0 enteric coated tablet (81 mg total) 8 by mouth daily for 30 days. 04/11/2018 clopidogrel (PLAVIX) 75 Take 1 tablet 30 tablet 0 mg tablet (75 mg total) 8 by mouth daily for 30 days. 04/10/2018 pregabalin (LYRICA) 25 MG Take 1 90 capsule 0 capsule capsule (25 8 mg total) by mouth 3 (three) times a day for 30 days. 04/17/2018 insulin lispro (HumaLOG) Inject 0-5 10 mL 12 100 unit/mL injection Units under 8 the skin 3 (three) times a day with meals for 30 days. Active Problems Problem Noted Date ESRD (end stage renal disease) 03/12/2018 ACS (acute coronary syndrome) 03/01/2018 Encounters Care Team Description Date Type Specialty MedinaSara agueroissa 09/12/2018 Abstract Quality Hortensia Mcintosh RN 04/08/2018 Patient Quality Outreach Keanu Merchant MD Saldana, Robert B., DO Samani, Kaveh, MD ESRD (end stage renal disease) (HCC) (Primary Dx) 03/12/2018 [facility] General Internal Medicine - Encounter 03/18/2018 Ajit Mancia DO ESRD (end stage renal disease) (HCC) (Primary Dx); Right inguinal pain; Ecchymosis 03/12/2018 Emergency Emergency Medicine Misael Harrington RN 03/11/2018 Patient Quality Outreach Brandon Leiva MD [facility] percutaneous cardiac angioplasty [63929 (CPT)] 03/10/2018 Surgery Procedural Cardiology Vinay Cisneros MD 03/04/2018 Documentation Cardiovascular Jules Julien MD Chronic obstructive pulmonary disease, unspecified COPD type (Primary Dx); Coronary artery disease, angina presence unspecified, unspecified vessel or lesion type, unspecified whether elim ira or transplanted heart; ACS (acute coronary syndrome) (HCC); ESRD (end stage renal disease) on dialysis (HCC); Secondary hypertension 03/01/2018 Hospital Cardiology - Encounter 03/11/2018 N/A 03/01/2018 Intake Access after 10/27/2017 Social History Date Tobacco Use Types Packs/Day Years Used Former Smoker Smokeless Tobacco: Never Used Comments: "Quit 1999" Alcohol Use Drinks/Week oz/Week Comments No "Quit 1999" Sex Assigned at Date Recorded Not on file Industry Job Start Date Occupation Not on file Not on file Not on file Travel End Travel History Travel Start No recent travel history available. Last Filed Vital Signs Time Taken Vital Sign Reading 03/18/2018 3:28 PM CDT Blood Pressure 130/56 03/18/2018 3:28 PM CDT Pulse 69 03/18/2018 3:28 PM CDT Temperature 36.1 C (96.9 F) 03/18/2018 3:28 PM CDT Respiratory Rate 16 03/18/2018 3:28 PM CDT Oxygen Saturation 99% - Inhaled Oxygen - Concentration 03/11/2018 6:18 AM CDT Weight 69.5 kg (153 lb 3.5 oz) 03/12/2018 6:21 AM CDT Height 160 cm (5' 3") - Body Mass Index - Plan of Treatment Health Maintenance Due Date Last Done Comments BREAST CANCER SCREENING 1992 COLON CANCER SCREENING 1992 SHINGLES VACCINES (#1) 1992 65+ PNEUMOCOCCAL VACCINE 12/01/2007 (1 of 2 - PCV13) PNEUMOCOCCAL 12/01/2007 POLYSACCHARIDE VACCINE AGE 65 AND OVER INFLUENZA VACCINE 01/01/2019 Implants Device Identifier Shelf Expiration Date Model / Serial / Lot Implanted Type Area Manufactur er [id number] / / Catheter Cardiac 7f Mach 1 Fr4 - Cardiovasc N/[place] [facility] [id number] [place] INTERVENTI Implanted: 03/10/2018 (Quantity not Implants ONAL on file) CARDIOLOGY [id number] / / Catheter Cardiac 7f Mach 1 Al 75 Sh Cardiovasc N/A[place] [facility] [place] [id number] INTERVENTI Implanted: 03/10/2018 (Quantity not Implants ONAL on file) CARDIOLOGY 09/09/2019 [id number] / / Stent System 3.0 X 22mm Resolute Coronary N/A: N/A [employer] [place] Otw Coronary - [id number] Stents [place] - Implanted: Qty: 1 on 03/10/2018 by CARDIAC Brandon Leiva MD RYHTYM [facility] [id number] / / Stent System 3.5 X 22mm Resolute Coronary N/A: N/A [employer] [place] Otw Coronary - [id number] Stents [place] - Implanted: 03/10/2018 (Quantity not CARDIAC on file) RYHTYM MGMT 07/31/2019 [id number] / / Stent System 3.5 X 15mm Resolute Coronary N/A: N/A [employer] [place] Otw Coronary - [id number] Stents [place] - Implanted: Qty: 1 on 03/10/2018 by CARDIAC Brandon Leiva MD RYHTYM MGMT Defibrillators Devices Icd And Defibrilla Related Products tors Devices ICD and Related Products Procedures Comments Procedure Name Priority Date/Time Associated Diagnosis ABSTRACTED LVEF Routine 09/12/2018 1:47 PM CDT POC GLUCOSE Routine 03/18/2018 11:40 AM CDT POC GLUCOSE Routine 03/18/2018 8:00 AM CDT POC GLUCOSE Routine 03/17/2018 9:07 PM CDT POC GLUCOSE Routine 03/17/2018 6:50 PM CDT POC GLUCOSE Routine 03/17/2018 5:50 PM CDT POC GLUCOSE Routine 03/17/2018 12:25 PM CDT HEMODIALYSIS Routine 03/17/2018 9:08 AM CDT POC GLUCOSE Routine 03/17/2018 8:48 AM CDT POC GLUCOSE Routine 03/16/2018 9:21 PM CDT POC GLUCOSE Routine 03/16/2018 4:29 PM CDT POC GLUCOSE Routine 03/16/2018 11:27 AM CDT POC GLUCOSE Routine 03/16/2018 8:07 AM CDT POC GLUCOSE Routine 03/15/2018 8:51 PM CDT POC GLUCOSE Routine 03/15/2018 6:20 PM CDT ESTIMATED GFR Routine 03/15/2018 1:31 PM CDT MAGNESIUM LEVEL Routine 03/15/2018 1:31 PM CDT PHOSPHORUS LEVEL Routine 03/15/2018 1:31 PM CDT BASIC METABOLIC PANEL Routine 03/15/2018 1:31 PM CDT HC COMPLETE BLD COUNT Routine 03/15/2018 W/AUTO DIFF 1:31 PM CDT POC GLUCOSE Routine 03/15/2018 8:04 AM CDT POC GLUCOSE Routine 03/15/2018 7:38 AM CDT POC GLUCOSE Routine 03/14/2018 5:33 PM CDT HEMODIALYSIS Routine 03/14/2018 2:[address] ABDOMEN PELVIS WO Routine 03/14/2018 CONTRAST 11:50 AM CDT POC GLUCOSE Routine 03/14/2018 7:23 AM CDT HC COMPLETE BLD COUNT Routine 03/14/2018 W/AUTO DIFF 5:30 AM CDT POC GLUCOSE Routine 03/13/2018 9:52 PM CDT POC GLUCOSE Routine 03/13/2018 5:37 PM CDT POC GLUCOSE Routine 03/13/2018 1:14 PM CDT POC GLUCOSE Routine 03/13/2018 8:24 AM CDT POC GLUCOSE Routine 03/13/2018 8:23 AM CDT ESTIMATED GFR Routine 03/13/2018 4:00 AM CDT BASIC METABOLIC PANEL Routine 03/13/2018 4:00 AM CDT POC GLUCOSE Routine 03/13/2018 12:25 AM CDT HEMODIALYSIS Routine 03/12/2018 7:55 PM CDT ESTIMATED GFR STAT 03/12/2018 6:48 PM CDT COMPREHENSIVE METABOLIC STAT 03/12/2018 PANEL 6:48 PM CDT HC COMPLETE BLD COUNT STAT 03/12/2018 W/AUTO DIFF 6:48 PM CDT XR CHEST 1 VW PORTABLE STAT 03/12/2018 5:43 PM CDT ECG 12-LEAD STAT 03/12/2018 4:00 PM CDT US DUPLEX ARTERIAL LOWER STAT 03/12/2018 EXTREMITY RIGHT 8:35 AM CDT ESTIMATED GFR STAT 03/12/2018 6:51 AM CDT COMPREHENSIVE METABOLIC STAT 03/12/2018 PANEL 6:51 AM CDT HC COMPLETE BLD COUNT STAT 03/12/2018 W/AUTO DIFF 6:51 AM CDT POC GLUCOSE Routine 03/11/2018 5:08 PM CDT POC GLUCOSE Routine 03/11/2018 12:05 PM CDT POC GLUCOSE Routine 03/11/2018 7:52 AM CDT ESTIMATED GFR Routine 03/11/2018 5:18 AM CDT ESTIMATED GFR Routine 03/11/2018 5:18 AM CDT HC COMPLETE BLD COUNT Routine 03/11/2018 W/AUTO DIFF 5:18 AM CDT BASIC METABOLIC PANEL Routine 03/11/2018 5:18 AM CDT CREATININE LEVEL Routine 03/11/2018 5:18 AM CDT POC GLUCOSE Routine 03/10/2018 7:47 PM CDT ECG PRE/POST OP Routine 03/10/2018 6:33 PM CDT CV PCI PERCUTANEOUS Routine 03/10/2018 Coronary artery disease, CARDIAC ANGIOPLASTY 5:56 PM CDT angina presence unspecified, unspecified vessel or lesion type, unspecified whether elim ira or transplanted heart ACTIVATED CLOTTING TIME Routine 03/10/2018 4:58 PM CDT POC GLUCOSE Routine 03/10/2018 12:44 PM CDT POC GLUCOSE Routine 03/10/2018 8:49 AM CDT PROTHROMBIN TIME WITH INR Routine 03/10/2018 8:42 AM CDT HC COMPLETE BLD COUNT Routine 03/10/2018 W/AUTO DIFF 8:42 AM CDT HEMODIALYSIS Routine 03/10/2018 8:05 AM CDT POC GLUCOSE Routine 03/10/2018 7:53 AM CDT ESTIMATED GFR Routine 03/10/2018 4:00 AM CDT BASIC METABOLIC PANEL Routine 03/10/2018 4:00 AM CDT POC GLUCOSE Routine 03/09/2018 8:48 PM CDT POC GLUCOSE Routine 03/09/2018 4:50 PM CDT POC GLUCOSE Routine 03/09/2018 12:01 PM CDT POC GLUCOSE Routine 03/09/2018 9:59 AM CDT POC GLUCOSE Routine 03/08/2018 9:27 PM CDT POC GLUCOSE Routine 03/08/2018 4:14 PM CDT POC GLUCOSE Routine 03/08/2018 10:11 AM CDT CBC HEMOGRAM Routine 03/08/2018 6:00 AM CDT ESTIMATED GFR Routine 03/08/2018 4:00 AM CDT BASIC METABOLIC PANEL Routine 03/08/2018 4:00 AM CDT POC GLUCOSE Routine 03/07/2018 11:32 PM CDT POC GLUCOSE Routine 03/07/2018 5:32 PM CDT POC GLUCOSE Routine 03/07/2018 12:16 PM CDT POC GLUCOSE Routine 03/07/2018 8:17 AM CDT ESTIMATED GFR Routine 03/07/2018 5:05 AM CDT BASIC METABOLIC PANEL Routine 03/07/2018 5:05 AM CDT HC COMPLETE BLD COUNT Routine 03/07/2018 W/AUTO DIFF 5:05 AM CDT POC GLUCOSE Routine 03/06/2018 8:54 PM CDT POC GLUCOSE Routine 03/06/2018 5:04 PM CDT HEMODIALYSIS Routine 03/06/2018 4:25 PM CDT POC GLUCOSE Routine 03/06/2018 11:49 AM CDT POC GLUCOSE Routine 03/06/2018 7:27 AM CDT CBC HEMOGRAM Routine 03/06/2018 6:00 AM CDT ESTIMATED GFR Routine 03/06/2018 4:00 AM CDT BASIC METABOLIC PANEL Routine 03/06/2018 4:00 AM CDT POC GLUCOSE Routine 03/05/2018 9:07 PM CDT POC GLUCOSE Routine 03/05/2018 6:47 PM CDT POC GLUCOSE Routine 03/05/2018 11:32 AM CDT POC GLUCOSE Routine 03/05/2018 7:19 AM CDT ESTIMATED GFR Routine 03/05/2018 6:00 AM CDT HEMOGLOBIN A1C Routine 03/05/2018 6:00 AM CDT HC COMPLETE BLD COUNT Routine 03/05/2018 W/AUTO DIFF 6:00 AM CDT BASIC METABOLIC PANEL Routine 03/05/2018 6:00 AM CDT POC GLUCOSE Routine 03/04/2018 8:14 PM CDT POC GLUCOSE Routine 03/04/2018 4:54 PM CDT POC GLUCOSE Routine 03/04/2018 3:00 PM CDT ECG 12-LEAD STAT 03/04/2018 2:32 PM CDT POC GLUCOSE Routine 03/04/2018 2:18 PM CDT POC GLUCOSE Routine 03/04/2018 2:02 PM CDT POC GLUCOSE Routine 03/04/2018 1:44 PM CDT POC GLUCOSE Routine 03/04/2018 11:23 AM CDT HEMODIALYSIS Routine 03/04/2018 10:31 AM CDT POC GLUCOSE Routine 03/04/2018 10:30 AM CDT SPIROMETRY PRE AND POST Routine 03/04/2018 Chronic obstructive BRONCHODILATORS, 7:49 AM CDT pulmonary disease, DIFFUSION unspecified COPD type (HCC) HC COMPLETE BLD COUNT Routine 03/04/2018 W/AUTO DIFF 7:33 AM CDT ESTIMATED GFR Routine 03/04/2018 4:00 AM CDT BASIC METABOLIC PANEL Routine 03/04/2018 4:00 AM CDT POC GLUCOSE Routine 03/03/2018 8:37 PM CDT POC GLUCOSE Routine 03/03/2018 6:33 PM CDT POC GLUCOSE Routine 03/03/2018 5:33 PM CDT HEMODIALYSIS Routine 03/03/2018 2:02 PM CDT HEPATITIS B SURFACE STAT 03/03/2018 ANTIGEN 2:00 PM CDT POC GLUCOSE Routine 03/03/2018 12:05 PM CDT ECHOCARDIOGRAM 2D Routine 03/03/2018 COMPLETE W MMODE SPECTRAL 10:08 AM CDT COLOR DOPPLER (56034) POC GLUCOSE Routine 03/03/2018 7:33 AM CDT HC COMPLETE BLD COUNT Routine 03/03/2018 W/AUTO DIFF 5:20 AM CDT HEMOGLOBIN A1C Routine 03/03/2018 5:00 AM CDT PROTHROMBIN TIME WITH INR Routine 03/03/2018 5:00 AM CDT ESTIMATED GFR Routine 03/03/2018 4:00 AM CDT BASIC METABOLIC PANEL Routine 03/03/2018 4:00 AM CDT POC GLUCOSE Routine 03/03/2018 12:19 AM CDT POC GLUCOSE Routine 03/02/2018 8:34 PM CDT US CAROTID DUPLEX Routine 03/02/2018 BILATERAL 5:38 PM CDT POC GLUCOSE Routine 03/02/2018 5:38 PM CDT POC GLUCOSE Routine 03/02/2018 11:56 AM CDT ESTIMATED GFR Routine 03/02/2018 5:20 AM CDT THYROID STIMULATING Routine 03/02/2018 HORMONE 5:20 AM CDT PHOSPHORUS LEVEL Routine 03/02/2018 5:20 AM CDT MAGNESIUM LEVEL Routine 03/02/2018 5:20 AM CDT COMPREHENSIVE METABOLIC Routine 03/02/2018 PANEL 5:20 AM CDT HC COMPLETE BLD COUNT Routine 03/02/2018 W/AUTO DIFF 5:20 AM CDT LIPID PANEL Routine 03/02/2018 5:20 AM CDT HEMOGLOBIN A1C Routine 03/02/2018 5:20 AM CDT POC GLUCOSE Routine 03/01/2018 8:42 PM CDT POC GLUCOSE Routine 03/01/2018 4:32 PM CDT after 10/27/2017 Results * ABSTRACTED LVEF (09/12/2018 1:47 PM CDT) Pathologist [facility] LV EF 55 % Specimen * POC glucose (03/18/2018 11:40 AM CDT) Only the most recent of 68 results within the time period is included. [facility] POC glucose 121 (H) 65 - 99 mg/dL [facility] Comment: OF PATHOLOGY [facility] Notified RN AND GENOMIC Meter ID: [id number] MEDICINE Sample Paster: Alex Sullivan Specimen Performing Organization Address City/[facility] Centercode Phone Number [facility] OF [address] [place] [address] PATHOLOGY AND GENOMIC MEDICINE * Estimated GFR (03/15/2018 1:31 PM CDT) Only the most recent of 14 results within the time period is included. [facility] Estimated GFR 8 (A) mL/min/1.[address] [facility] Comment: OF PATHOLOGY CatergoryUnitsInte AND GENOMIC rpretation MEDICINE G1 >=90 Normal or high G2 60-89Mildly decreased G5o22-83 Mildly to moderately decreased [id number] Moderately to severely decreased G4 15-29Severely decreased G5 <15Kidney failure The eGFR was calculated using the Chronic Kidney Disease Epidemiology Collaboration (CKD-EPI) equation. Interpretation is based on recommendations of the National Kidney Foundation-Kidney Disease Outcomes Quality Initiative (NKF-KDOQI) published in 2014. Specimen Plasma specimen Performing Organization Address City/State/Zipcode Phone Number [facility] DEPARTMENT OF [address] [place] [address] PATHOLOGY AND GENOMIC MEDICINE * CBC with platelet and differential (03/15/2018 1:31 PM CDT) Only the most recent of 11 results within the time period is included. [facility] WBC 5.02 4.50 - 11.00 k/uL [facility] OF PATHOLOGY AND GENOMIC MEDICINE RBC 2.99 (L) 4.20 - 5.50 m/uL [facility] OF PATHOLOGY AND GENOMIC MEDICINE HGB 8.3 (L) 12.0 - 16.0 g/dL [facility] OF PATHOLOGY AND GENOMIC MEDICINE HCT 27.9 (L) 37.0 - 47.0 % [facility] OF PATHOLOGY AND GENOMIC MEDICINE MCV 93.3 82.0 - 100.[address] [facility] OF PATHOLOGY AND GENOMIC MEDICINE MCH 27.8 27.0 - 34.[address] [facility] OF PATHOLOGY AND GENOMIC MEDICINE MCHC 29.7 (L) 31.0 - 37.0 g/dL [facility] OF PATHOLOGY AND GENOMIC MEDICINE RDW - SD 67.3 (H) 37.0 - 55.[address] [facility] OF PATHOLOGY AND GENOMIC MEDICINE MPV 11.9 8.8 - 13.[address] [facility] OF PATHOLOGY AND GENOMIC MEDICINE Platelet count 91 (L) 150 - 400 k/uL [facility] OF PATHOLOGY AND GENOMIC MEDICINE Nucleated RBC 0.00 /[address] [facility] OF PATHOLOGY AND GENOMIC MEDICINE Neutrophils 60.5 39.0 - 69.0 % [facility] OF PATHOLOGY AND GENOMIC MEDICINE Lymphocytes 25.5 25.0 - 45.0 % [facility] OF PATHOLOGY AND GENOMIC MEDICINE Monocytes 8.0 0.0 - 10.0 % [facility] OF PATHOLOGY AND GENOMIC MEDICINE Eosinophils 5.0 0.0 - 5.0 % [facility] OF PATHOLOGY AND GENOMIC MEDICINE Basophils 0.8 0.0 - 1.0 % [facility] OF PATHOLOGY AND GENOMIC MEDICINE Immature 0.2Comment: "Immature 0.0 - 1.0 % [facility] granulocytes granulocytes" (promyelocytes, OF PATHOLOGY myelocytes, metamyelocytes) AND GENOMIC MEDICINE Specimen Blood Performing Organization Address City/[facility] Centercode Phone Number [facility] [place] [address] PATHOLOGY AND GENOMIC MEDICINE * Phosphorus level (03/15/2018 1:31 PM CDT) Only the most recent of 2 results within the time period is included. Phosphorus 6.1 (H) 2.4 - 4.5 mg/dL [facility] OF PATHOLOGY AND GENOMIC MEDICINE Specimen Plasma specimen Performing Organization Address [facility] Centercode Phone Number [facility] [place] [address] PATHOLOGY AND GENOMIC MEDICINE * Magnesium level (03/15/2018 1:31 PM CDT) Only the most recent of 2 results within the time period is included. Pathologist [facility] Magnesium 2.2 1.6 - 2.4 mg/dL [facility] OF PATHOLOGY AND GENOMIC MEDICINE Specimen Plasma specimen Performing Organization Address City/[facility]/[place] [address] PATHOLOGY AND GENOMIC MEDICINE * Basic metabolic panel (03/15/2018 1:31 PM CDT) Only the most recent of 10 results within the time period is included. Sodium 134 (L) 135 - 148 mEq/L [facility] OF PATHOLOGY AND GENOMIC MEDICINE Potassium 4.9 3.5 - 5.0 mEq/L [facility] OF PATHOLOGY AND GENOMIC MEDICINE Chloride 92 (L) 98 - 112 mEq/L [facility] DE[facility] OF PATHOLOGY AND GENOMIC MEDICINE CO2 26 24 - 31 mEq/L [facility] OF PATHOLOGY AND GENOMIC MEDICINE Anion gap 16@ANIO (H) 7 - 15 mEq/L [facility] OF PATHOLOGY AND GENOMIC MEDICINE BUN 38 (H) 8 - 23 mg/dL [facility] OF PATHOLOGY AND GENOMIC MEDICINE Creatinine 4.90 (H) 0.50 - 0.90 mg/dL [facility] OF PATHOLOGY AND GENOMIC MEDICINE Glucose 184 (H) 65 - 99 mg/dL [facility] DE[facility] OF PATHOLOGY AND GENOMIC MEDICINE Calcium 8.8 8.8 - 10.2 mg/dL [facility] DE[facility] OF PATHOLOGY AND GENOMIC MEDICINE Specimen Plasma specimen Performing Organization Address City/[facility] [place] [address] PATHOLOGY AND GENOMIC MEDICINE * CT Abdomen Pelvis Wo Contrast (03/14/2018 11:50 AM CDT) Specimen Narrative Performed At EXAMINATION:CT ABDOMEN PELVIS WO CONTRAST RADIANT CLINICAL HISTORY:R groin pain TECHNIQUE: Noncontrast images of the abdomen and pelvis were obtained without intravenous iodinated contrast. The lack of intravenous contrast limits assessment of the solid organs. CT imaging was performed with iterative reconstruction technique and/or automated exposure control to reduce radiation dose. COMPARISON: None FINDINGS: LUNG BASES: Peribronchovascular predominant groundglass and consolidation with associated traction bronchiectasis/bronchiolectasis in the lung bases. Trace right pleural effusion. Four-chamber cardiomegaly. Extensive vascular calcifications. AICD/pacemaker leads in the right atrium and right ventricle. Lower periaortic lymphadenopathy measuring up to 16 mm short axis (image 22 series 3) ABDOMEN: Liver: The liver is normal. No focal mass. Gallbladder: Vicarious excretion of contrast material. Spleen: The spleen is not enlarged. Pancreas: 10 mm cystic region near the pancreatic head (image 64 series 3) Adrenal Glands: Indeterminate right adrenal lesion measures 35 mm. 13 mm right adrenal adenoma. Kidneys: Bilateral mild renal cortical atrophy. Indeterminate left upper pole exophytic nodule measuring 18 mm. A few renal cysts are also noted. Vascular: Extensive calcifications involve the aorta and branch vessels. Nodes: Multifocal lymphadenopathy, for example gastrohepatic measuring 13 mm short axis on image 41, right common iliac measuring 10 mm on image 92. Bowel: Small duodenal diverticulum. Incompletely distended stomach, which is incompletely evaluated. No bowel obstruction. Moderate colonic stool burden, suggestive of constipation. Ascites/fluid collections: Trace stranding throughout the mesentery and retroperitoneum. No discrete fluid collections. PELVIS: Thickened bladder wall circumferentially, likely due to underdistention. Stranding extends into the pelvis. Mildly enlarged inguinal lymph nodes bilaterally. MUSCULOSKELETAL: Mild anasarca. Slightly asymmetric stranding over the lower right anterior abdominal wall, which could be related to the anasarca or represent superimposed inflammation in this region. Fat-containing inguinal hernia, with a small amount of central stranding (unclear whether secondary to inflammation within the hernia or in the context of the patient's anasarca. Subcutaneous nodule over the lower right anterior abdominal wall on image 119 measuring 8 x 7 mm, possibly injection granuloma. Extensive spondylosis. Diffuse osteopenia. IMPRESSION: 1.Groundglass and consolidation in the lung bases with associated bronchiectasis/bronchiolectasis. The acuity of this finding is indeterminate. This could represent an organizing acute process (i.e. resolving aspiration or pneumonia), but interstitial lung disease is also a consideration. Consider dedicated chest CT following convalescence of the patient's acute problems. 2.Indeterminate 3.5 cm right adrenal mass. Recommend dedicated adrenal protocol CT or MRI. 3.Cystic region near the pancreatic head, possibly a small intraductal papillary mucinous neoplasm. This could also be assessed with abdominal MRI. 4.Multifocal indeterminate lymphadenopathy, which could be reactive, metastatic, or due to primary lymphoproliferative process. 5.Anasarca, mild mesenteric and retroperitoneal stranding. 6.Fat-containing inguinal hernia with a small amount central stranding, which could be secondary to inflammation or in the context of the patient's anasarca. [facility]-[id number] Procedure Note Hm Interface, Radiology Results Incoming - 03/14/2018 12:12 PM CDT EXAMINATION: CT ABDOMEN PELVIS WO CONTRAST CLINICAL HISTORY: R groin pain TECHNIQUE: Noncontrast images of the abdomen and pelvis were obtained without intravenous iodinated contrast. The lack of intravenous contrast limits assessment of the solid organs. CT imaging was performed with iterative reconstruction technique and/or automated exposure control to reduce radiation dose. COMPARISON: None FINDINGS: LUNG BASES: Peribronchovascular predominant groundglass and consolidation with associated traction bronchiectasis/bronchiolectasis in the lung bases. Trace right pleural effusion. Four-chamber cardiomegaly. Extensive vascular calcifications. AICD/pacemaker leads in the right atrium and right ventricle. Lower periaortic lymphadenopathy measuring up to 16 mm short axis (image 22 series 3) ABDOMEN: Liver: The liver is normal. No focal mass. Gallbladder: Vicarious excretion of contrast material. Spleen: The spleen is not enlarged. Pancreas: 10 mm cystic region near the pancreatic head (image 64 series 3) Adrenal Glands: Indeterminate right adrenal lesion measures 35 mm. 13 mm right adrenal adenoma. Kidneys: Bilateral mild renal cortical atrophy. Indeterminate left upper pole exophytic nodule measuring 18 mm. A few renal cysts are also noted. Vascular: Extensive calcifications involve the aorta and branch vessels. Nodes: Multifocal lymphadenopathy, for example gastrohepatic measuring 13 mm short axis on image 41, right common iliac measuring 10 mm on image 92. Bowel: Small duodenal diverticulum. Incompletely distended stomach, which is incompletely evaluated. No bowel obstruction. Moderate colonic stool burden, suggestive of constipation. Ascites/fluid collections: Trace stranding throughout the mesentery and retroperitoneum. No discrete fluid collections. PELVIS: Thickened bladder wall circumferentially, likely due to underdistention. Stranding extends into the pelvis. Mildly enlarged inguinal lymph nodes bilaterally. MUSCULOSKELETAL: Mild anasarca. Slightly asymmetric stranding over the lower right anterior abdominal wall, which could be related to the anasarca or represent superimposed inflammation in this region. Fat-containing inguinal hernia, with a small amount of central stranding (unclear whether secondary to inflammation within the hernia or in the context of the patient's anasarca. Subcutaneous nodule over the lower right anterior abdominal wall on image 119 measuring 8 x 7 mm, possibly injection granuloma. Extensive spondylosis. Diffuse osteopenia. IMPRESSION: 1. Groundglass and consolidation in the lung bases with associated bronchiectasis/bronchiolectasis. The acuity of this finding is indeterminate. This could represent an organizing acute process (i.e. resolving aspiration or pneumonia), but interstitial lung disease is also a consideration. Consider dedicated chest CT following convalescence of the patient's acute problems. 2. Indeterminate 3.5 cm right adrenal mass. Recommend dedicated adrenal protocol CT or MRI. 3. Cystic region near the pancreatic head, possibly a small intraductal papillary mucinous neoplasm. This could also be assessed with abdominal MRI. 4. Multifocal indeterminate lymphadenopathy, which could be reactive, metastatic, or due to primary lymphoproliferative process. 5. Anasarca, mild mesenteric and retroperitoneal stranding. 6. Fat-containing inguinal hernia with a small amount central stranding, which could be secondary to inflammation or in the context of the patient's anasarca. [facility]-[id number] Performing Organization Address City/State/Zipcode Phone Number [facility] [address] [place] [address] * Comprehensive metabolic panel (03/12/2018 6:48 PM CDT) Only the most recent of 3 results within the time period is included. Sodium 134 (L) 135 - 148 mEq/L [facility] DEPARTMENT OF PATHOLOGY AND GENOMIC MEDICINE Potassium 5.6 (H) 3.5 - 5.0 mEq/L [facility] DEPARTMENT OF PATHOLOGY AND GENOMIC MEDICINE Chloride 96 (L) 98 - 112 mEq/L [facility] DEPARTMENT OF PATHOLOGY AND GENOMIC MEDICINE CO2 22 (L) 24 - 31 mEq/L [facility] DEPARTMENT OF PATHOLOGY AND GENOMIC MEDICINE Anion gap 16@ANIO (H) 7 - 15 mEq/L [facility] DEPARTMENT OF PATHOLOGY AND GENOMIC MEDICINE BUN 58 (H) 8 - 23 mg/dL [facility] DEPARTMENT OF PATHOLOGY AND GENOMIC MEDICINE Creatinine 4.88 (H) 0.50 - 0.90 mg/dL [facility] DEPARTMENT OF PATHOLOGY AND GENOMIC MEDICINE Glucose 184 (H) 65 - 99 mg/dL [facility] DEPARTMENT OF PATHOLOGY AND GENOMIC MEDICINE Calcium 8.9 8.8 - 10.2 mg/dL [facility] DEPARTMENT OF PATHOLOGY AND GENOMIC MEDICINE Protein 7.1 6.3 - 8.3 g/dL [facility] DEPARTMENT Comment: OF PATHOLOGY AND GENOMIC 4.6-7.0 g/dL MEDICINE 1 week 4.4-7.6 g/dL 7 months-1year 5.1-7.3 g/dL 1-2 years5.6-7 .5 g/dL >3 years6.0-8 .0 g/dL 18-150 6.3-8.3 g/dL Albumin 2.9 (L) 3.5 - 5.0 g/dL [facility] DEPARTMENT OF PATHOLOGY AND GENOMIC MEDICINE A/G ratio 0.7 0.7 - 3.[address] [facility] DEPARTMENT OF PATHOLOGY AND GENOMIC MEDICINE Alkaline 96 35 - 104 U/L [facility] DEPARTMENT phosphatase OF PATHOLOGY AND GENOMIC MEDICINE AST 20 10 - 35 U/L [facility] DEPARTMENT OF PATHOLOGY AND GENOMIC MEDICINE ALT 15 5 - 50 U/L [facility] DEPARTMENT OF PATHOLOGY AND GENOMIC MEDICINE Total bilirubin <0.2 0.0 - 1.2 mg/dL [facility] DEPARTMENT OF PATHOLOGY AND GENOMIC MEDICINE Specimen Plasma specimen Performing Organization Address City/[facility] Phone Number [facility] DEPARTMENT [address] [address] PATHOLOGY AND GENOMIC MEDICINE * XR Chest 1 Vw Portable (03/12/2018 5:43 PM CDT) Specimen Narrative Performed At EXAMINATION:XR CHEST 1 VW PORTABLE RADIANT CLINICAL HISTORY:77 years Female Chest Pain TM COMPARISON:None IMPRESSION: 1.Right chest wall cardiac device with 2 leads. Cardiomediastinal silhouette is enlarged. Calcifications in the aortic arch. There is interstitial prominence bilaterally, may represent edema. 2.Bibasilar opacities consistent with atelectasis and/or consolidation. Small left effusion is suggested. 3.The bones are demineralized with degenerative changes in the spine. [facility]-[id number] Procedure Note Interface, Radiology Results Incoming - 03/12/2018 5:53 PM CDT EXAMINATION: XR CHEST 1 VW PORTABLE CLINICAL HISTORY:77 years Female Chest Pain TM COMPARISON: None IMPRESSION: 1. Right chest wall cardiac device with 2 leads. Cardiomediastinal silhouette is enlarged. Calcifications in the aortic arch. There is interstitial prominence bilaterally, may represent edema. 2. Bibasilar opacities consistent with atelectasis and/or consolidation. Small left effusion is suggested. 3. The bones are demineralized with degenerative changes in the spine. [facility]-[id number] Performing Organization Address City/[facility] Phone Number [facility] [address] [place] [address] * ECG 12 lead (03/12/2018 4:00 PM CDT) Only the most recent of 2 results within the time period is included. Ventricular 69 [facility] rate Atrial rate 69 [facility] W[place] interval 212 [facility] QRSD interval 90 [facility] QT interval 396 [facility] QTC interval 424 [facility] P axis 1 57 [facility] QRS axis 1 84 [facility] T wave axis -15 [facility] EKG impression Sinus rhythm with 1st degree H MUSE AV block-ST & T wave abnormality, consider anterolateral ischemia-Abnormal ECG-In automated comparison with ECG of 10-MAR-2018 18:33,-No significant change was found- Specimen Performing Organization Address City/State/Zipcode Phone Number [facility] ANG [address] [place] [address] * PV duplex arterial lower extremity (03/12/2018 8:35 AM CDT) Specimen Narrative Performed At [facility] Vascular Ultrasound Laboratory Lower Extremity Arterial Duplex Report [id number]Name:HIRO COXchun.ID:[id number] St.Date: 03/12/2018Refer.MD:PHYSICIAN, EMERGENCY, MD Exam Time: 8:00:00 AMStudy Type:LE Arterial DOBAge:1940,77Y Sex: FEMALE Sonogrphr: Rualito Sánchez, RVSPat. Stat.:Outpatient Room:ERTapeVol: [facility] - 4: [id number] Echo Event ID:[id number] Order ID:[id number] Reason for Study:Right groin pain; S/P right groin cath. Procedures:Colorflow, Grayscale/2D, Pulsed wave Doppler Race:C SUMMARY: DUPLEX SCAN OBSERVATIONS: RIGHT:The common femoral artery and vein is visualized .No pseudoaneurysm is visualized.Distally the superficial femoral artery and vein are present. PRELIMINARY FINDINGS: 1.No evidence of pseudoaneurysm, hematoma or AV fistula in the right groin. PHYSICIAN INTERPRETATION: No evidence of pseudoaneurysm, hematoma or AV fistula in the right groin. Signed 03/12/2018 09:42 AM David Cooper MD, DOUGLAS Procedure Note Interface, Radiology Results In - 03/12/2018 9:42 AM CDT Vascular Ultrasound Laboratory Lower Extremity Arterial Duplex Report [id number] [place] [address] Pat.Name: HIRO COX Pat.ID: [id number] St.Date: 03/12/2018 Refer.MD: PHYSICIAN, EMERGENCY, MD Exam Time: 8:00:00 AM Study Type:LE Arterial Age: 8 1940,77Y Sex: FEMALE Sonogrphr: URIAH Lamb Pat. Stat.:Outpatient Room: ER Tape Vol: , [facility] - 4: [id number] Echo Event ID:[id number] Order ID: [id number] Reason for Study:Right groin pain; S/P right groin cath. Procedures:Colorflow, Grayscale/2D, Pulsed wave Doppler Race: C SUMMARY: DUPLEX SCAN OBSERVATIONS: RIGHT: The common femoral artery and vein is visualized . No pseudoaneurysm is visualized. Distally the superficial femoral artery and vein are present. PRELIMINARY FINDINGS: 1. No evidence of pseudoaneurysm, hematoma or AV fistula in the right groin. PHYSICIAN INTERPRETATION: No evidence of pseudoaneurysm, hematoma or AV fistula in the right groin. Signed 03/12/2018 09:42 AM David Cooper MD, NATANAELVI Performing Organization Address City/State/Zipcode Phone Number [facility] [address] [phone] * Creatinine level (03/11/2018 5:18 AM CDT) Creatinine 2.89 (H) 0.50 - 0.90 mg/dL [facility] DEPARTMENT OF PATHOLOGY AND GENOMIC MEDICINE Specimen Plasma specimen Performing Organization Address City/[facility] Phone Number [facility] DEPARTMENT OF [address] [place] [address] PATHOLOGY AND GENOMIC MEDICINE * ECG Pre/Post Op (in AM) (03/10/2018 6:33 PM CDT) Ventricular 75 [facility] rate Atrial rate [address] [facility] MUSE [place] interval [address] [facility] MUSE QRSD interval 92 H MUSE QT interval [address] [facility] MUSE QTC interval [address] [facility] MUSE P axis [address] [facility] MUSE QRS axis [address] [facility] MUSE T wave axis [address] [facility] MUSE EKG impression Normal sinus rhythm-Possible [facility] MUSE Left atrial enlargement-Rightward axis-ST & T wave abnormality, consider anterolateral ischemia-Abnormal ECG-In automated comparison with ECG of 04-MAR-2018 14:32,-T wave inversion less evident in Inferior leads-T wave inversion less evident in Lateral leads- Specimen Performing Organization Address [facility] Phone Number [facility] [address] [place] [address] * Cv crown and bridge dental lab technician procedure (03/10/2018 5:56 PM CDT) Specimen Narrative Performed At [facility] SURGEON: Brandon Leiva MD HAND BINDER STRIPPER: Edgar Moran PREOPERATIVE DIAGNOSES: 1.Acute coronary syndrome. 2.Atherosclerotic vascular disease with unstable angina. POSTOPERATIVE DIAGNOSES: 1.Acute coronary syndrome. 2.Atherosclerotic vascular disease with unstable angina. TITLE OF OPERATION: 1.Percutaneous coronary intervention with medicated stent to the right coronary artery. 2.Percutaneous coronary intervention with medicated stent to the left anterior descending (x2). ANESTHESIA: Conscious sedation with Versed and fentanyl. ESTIMATED BLOOD LOSS: 20 mL. COMPLICATIONS: None. OPERATIVE COURSE: After informed consent was obtained from the patient and with appropriate time-out procedures called, the patient was placed on the cardiac catheterization table.Both groins were cleaned and prepared in the usual fashion.The appropriate anatomic landmarks were identified.We had planned to have rotational atherectomy available on standby should it be deemed necessary and thus I opted to proceed with a 7-Trinidadian system. The right femoral artery was anesthetized with 1% Xylocaine without epinephrine and the artery entered without difficulty using a standard 18-gauge AMC needle. A 7-Trinidadian short arterial sheath was utilized for access.Similarly, the right femoral vein was entered with the same 18-gauge AMC needle and a short 6-Trinidadian venous sheath utilized for access.We did not need to consider temporary pacemaker as the patient had a functioning dual lead AICD system.The patient then received the first of several doses of conscious sedation with Versed and fentanyl.She was continuously monitored by myself and the circulating nurse including end-tidal CO2, oxygenation, blood pressure, heart rate and respirations.She tolerated the anesthetic portion well although she did complain of back pain during virtually the entire case.Nonetheless, she remained hemodynamically stable including blood pressure, heart rate and oxygenation. We initially treated the right coronary artery.The first guiding catheter chosen was a 7-Trinidadian FR4 non-side hole catheter and while this did coapt with the vessel, the vessel pressure was damped.Thus this was taken out and instead an AL 0.75 side-hole catheter was utilized which provided excellent visualization and coaption.The lesion was successfully crossed with a 0.014 BMW exchange length wire and predilated with a 2.5 x 12 mm semicompliant balloon.The lesion yielded and thus rotational atherectomy was not deemed necessary.A 3.0 x 22 mm Resolute medicated [place] stent was then deployed and postdilated with a 3 mm noncompliant balloon.The end result was no residual stenosis, TIMI3 distal flow and no evidence of proximal or distal dissection. 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 This had not been visualized previously and was in fact felt to be real as we had just given intracoronary nitroglycerin to eliminate the possibility of spasm.This did require placement of a second 3.5 x 15 mm Resolute [place] drug eluting stent, which was postdilated with a 3.5 mm noncompliant balloon. The end result was no residual stenosis, TIMI3 distal flow and excellent flow into the ramus, small circumflex and entire LAD, which was of a very large wrap around variety.Hemodynamically, she tolerated the procedure well.The guiding catheter was removed and the Angiomax discontinued.We elected to not do closure devices on the femoral artery as she had an extreme amount of calcification in the femoral area.Thus, she was taken off the catheterization table and transported to PACU for sheath removal, when ACT is less than 170 seconds.She tolerated the procedure well from a hemodynamic view point. Performing Organization Address [facility] [place] [address] * Activated clotting time (03/10/2018 4:58 PM CDT) [facility] Activated 274 (H) 96 - [address] [facility] DEPARTMENT clotting time Comment: OF PATHOLOGY Meter ID: [id number] AND GENOMIC Sample Paster: Yordan Vi MEDICINE Specimen Performing Organization Address [facility] Phone Number [facility] DEPARTMENT OF [address] [place] [address] PATHOLOGY AND SAN [employer] MEDICINE * Prothrombin time with INR (03/10/2018 8:42 AM CDT) Only the most recent of 2 results within the time period is included. [facility] Prothrombin 14.4 12.0 - 15.[address] [facility] DEPARTMENT time OF PATHOLOGY AND GENOMIC MEDICINE INR 1.[address] [facility] DEPARTMENT Comment: OF PATHOLOGY The International Normalized AND GENOMIC Ratio (INR) is a therapeutic MEDICINE monitoring tool for patients who are stable on oral anticoagulant therapy. An INR of 2.0-3.0 is suggested for deep vein thrombosis/pulmonary embolism. Specimen Blood Performing Organization Address [facility] Phone Number [facility] [place] [place] [address] PATHOLOGY AND SAN [employer] MEDICINE * CBC hemogram (03/08/2018 6:00 AM CDT) Only the most recent of 2 results within the time period is included. [facility] WBC 5.87 4.50 - 11.00 k/uL [facility] DEPARTMENT OF PATHOLOGY AND GENOMIC MEDICINE RBC 3.94 (L) 4.20 - 5.50 m/uL [facility] DEPARTMENT OF PATHOLOGY AND GENOMIC MEDICINE HGB 10.5 (L) 12.0 - 16.0 g/dL [facility] DEPARTMENT OF PATHOLOGY AND GENOMIC MEDICINE HCT 36.5 (L) 37.0 - 47.0 % [facility] DEPARTMENT OF PATHOLOGY AND GENOMIC MEDICINE MCV 92.6 82.0 - 100.[address] [facility] DEPARTMENT OF PATHOLOGY AND GENOMIC MEDICINE MCH 26.6 (L) 27.0 - 34.[address] [facility] DEPARTMENT OF PATHOLOGY AND GENOMIC MEDICINE MCHC 28.8 (L) 31.0 - 37.0 g/dL [facility] DEPARTMENT OF PATHOLOGY AND GENOMIC MEDICINE RDW - SD 62.9 (H) 37.0 - 55.[address] [facility] DEPARTMENT OF PATHOLOGY AND GENOMIC MEDICINE MPV 12.3 8.8 - 13.[address] [facility] DEPARTMENT OF PATHOLOGY AND GENOMIC MEDICINE Platelet count 106 (L) 150 - 400 k/uL [facility] DEPARTMENT OF PATHOLOGY AND GENOMIC MEDICINE Nucleated RBC 0.00 /[address] [facility] DEPARTMENT OF PATHOLOGY AND GENOMIC MEDICINE Specimen Blood Performing Organization Address City/State/[facility] Phone Number [facility] [place] [place] [address] PATHOLOGY [facility] SAN [employer] [facility] * Hemoglobin A1c (03/05/2018 6:00 AM CDT) Only the most recent of 3 results within the time period is included. Hemoglobin A1C 7.4 (H) 4.0 - 5.6 % [facility] DEPARTMENT Comment: OF PATHOLOGY HbA1c cutoffs for diagnosing AND GENOMIC diabetes: MEDICINE 4.0% - 5.6%=normal 5.7% - 6.4%=increased risk for diabetes (prediabetes) >=6.5%=diabetes Goals for glycemic control (ADA 2016) < 7.0%Target for non adults with diabetes. More or less stringent targets may be appropriate for individual patients. <7.5% Target for Children and adolescents with type 1 diabetes. Specimen Performing Organization Address City/State/Zipcode Phone Number [facility] DEPARTMENT OF [address] [place] [address] PATHOLOGY AND GENOMIC MEDICINE * Spirometry pre & post w/ bronchodilator, diffusion (03/04/2018 7:49 AM CDT) [facility] FEV1 Post 0.89 1.68 - 2.92 L [facility] FEV1/FVC % Post 87.70 65.08 - 84.67 % [facility] FVC Post 1.02 2.33 - 3.80 L [facility] PEF Post 4.38 3.74 - 7.38 L/s [facility] FEF 25-75% Post 1.82 0.46 - 3.09 L/s [facility] FEV1 Pre 0.86 1.68 - 2.92 L [facility] FEV1/FVC % Pre 87.95 65.08 - 84.67 % [facility] FVC Pre 0.98 2.33 - 3.80 L [facility] PEF Pre 4.43 3.74 - 7.38 L/s [facility] FEF 25-75% Pre 1.50 0.46 - 3.09 L/s [facility] FEV1 Predicted 2.30 [facility] FEV1 LLN 1.68 [facility] FEV1 % Pre of 37.5 % [facility] Predicted FEV1 % Post of 38.9 % [facility] Predicted FEV1 % Change 3.6 % [facility] FVC Predicted 3.06 [facility] FVC LLN 2.33 [facility] FVC % Pre of 32.1 % [facility] Predicted FVC % Post of 33.3 % [facility] Predicted FVC % Change 3.9 % [facility] FEV1/FVC % 75 [facility] Predicted FEV1/FVC % LLN 65 [facility] FEV1/FVC % Pre 117.5 % [facility] of Predicted FEV1/FVC % Post 117.1 % [facility] of Predicted FEV1/FVC % -0.3 % [facility] Change FEF 25-75% 1.78 [facility] Predicted FEF 25-75% LLN 0.46 [facility] FEF 25-75% % 84.3 % [facility] Pre of Predicted FEF 25-75% % 102.5 % [facility] Post of Predicted FEF 25-75% % 21.7 % [facility] Change PEF Predicted 5.56 [facility] PEF LLN 3.74 [facility] PEF % Pre of 79.8 % [facility] Predicted PEF % Post of 78.7 % [facility] Predicted PEF % Change -1.3 % [facility] MIP Predicted 48.95 [facility] MIP LLN 22.53 [facility] MEP Predicted 60.52 [facility] MEP LLN 18.81 [facility] MVV Predicted 86 [facility] MVV LLN 73 [facility] Specimen Performing Organization Address [facility] Phone Number [facility] [address] [place] [address] * Hepatitis B surface antigen (03/03/2018 2:00 PM CDT) Hepatitis B Non-reactive Non-reactive [facility] DEPARTMENT surface Ag OF PATHOLOGY AND GENOMIC MEDICINE Specimen Blood Performing Organization Address [facility] Phone Number [facility] DEPARTMENT OF [address] [place] [address] PATHOLOGY AND GENOMIC MEDICINE * Echocardiogram complete w contrast and 3D if needed (03/03/2018 10:08 AM CDT) Specimen Narrative Performed At [facility] Echocardiography Report [address] [place] [address] Pat.Name:HIRO COX.ID:[id number] .Date: 03/03/2018 Refer.MD:GARFIELD PETE MD Exam Time: 10:29:00 AM Study Type:Routine Echo Height:65inWeight:161lb BSA: 1.81 m2 DOBAge:1940,77Y Sex: FEMALEBP:127/60 HR:61 bpmSonogrphr: SABINE Vega Pat. Stat.:Inpatient Room: 919 Study Status:Final Echo Event ID:[id number] Order ID:[id number] Reason for Study:CAD, chronic CHF Procedures:2D Echo, Colorflow Doppler, Intravenous Optison Contrast Race:C SUMMARY: LV EF is normal. Septal motion is paradoxical secondary to RV systolic pressure overload. RV systolic function is severely depressed. LV filling pressure is elevated. FINDINGS: LV: LV size is normal. Concentric left ventricular remodeling. LVEF is normal. Overall wall motion is normal. Estimated EFis 55-59%. Septal motion is paradoxical secondary to RV systolicpressure overload. RV: RV size is enlarged. A pacemaker wire is seen in the RV. RV systolicfunction is severely depressed. RV wall motion is hypokinetic. LA: LA size is normal. RA: RA volume is severely enlarged. A pacemaker wire is seen. AO: Aortic root diameter is normal. EDMUND: No pericardial effusion. AV: No structural AV abnormalities noted. MV: No structural MV abnormalities noted. Mild mitral regurgitation. PV: Pulmonic valve not well seen. A trace of pulmonic regurgitation. TV: No structural TV abnormalities noted. Moderate tricuspid regurgitation Key: LV relaxation is impaired. LV filling pressure is elevated. Other:Estimated PA systolic pressure is 62 mmHg, assuming a mean RAPof 10 mmHg. MEASUREMENTS: 2D Parasternal Long [place] LVOT 1.8 cmLA Ds4.7 cm LVIDd4.3 cmIndex2.4 cm/m Ao Rtd 3.3 cm Index1.8 cm/m LVIDs2.8 cmLV Gqir709.8 g(87-129) LV%fs 34.3 % LVM Index 91.6 g/m2 IVSd 1.1 cmRWT0.6 LVPWd1.2 cm LA Sng Plane LA Area 17.4 cm2(8.8-23.4) LA Vol44.6 ml Index24.6 ml/m LA LngAx 5.6 cm RA Sng Plane RA Area 24.8 cm2(8.3-19.5) RA Vol90.5 ml Index50 ml/m RA LngAx 5.7 cm Signed 03/03/2018 02:30 PM Katherin Benavides M.D. Procedure Note Interface, Radiology Results In - 03/03/2018 2:30 PM CDT Echocardiography Report [id number] [address] Pat.Name: HIRO COX Pat.ID: [id number] .Date: 03/03/2018 Refer.MD: GARFIELD PETE MD Exam Time: 10:29:00 AM Study Type:Routine Echo Height: 65in Weight: 161lb BSA: 1.81 m2 Age: 8 1940,77Y Sex: FEMALE BP: 127/60 HR: 61 bpm Sonogrphr: SABINE Vega Pat. Stat.:Inpatient Room: [facility] Study Status:Final Echo Event ID:[id number] Order ID: [id number] Reason for Study:CAD, chronic CHF Procedures:2D Echo, Colorflow Doppler, Intravenous Optison Contrast Race: C SUMMARY: LV EF is normal. Septal motion is paradoxical secondary to RV systolic pressure overload. RV systolic function is severely depressed. LV filling pressure is elevated. FINDINGS: LV: LV size is normal. Concentric left ventricular remodeling. LV EF is normal. Overall wall motion is normal. Estimated EF is 55-59%. Septal motion is paradoxical secondary to RV systolic pressure overload. RV: RV size is enlarged. A pacemaker wire is seen in the RV. RV systolic function is severely depressed. RV wall motion is hypokinetic. LA: LA size is normal. RA: RA volume is severely enlarged. A pacemaker wire is seen. AO: Aortic root diameter is normal. EDMUND: No pericardial effusion. AV: No structural AV abnormalities noted. MV: No structural MV abnormalities noted. Mild mitral regurgitation. PV: Pulmonic valve not well seen. A trace of pulmonic regurgitation. TV: No structural TV abnormalities noted. Moderate tricuspid regurgitation Key: LV relaxation is impaired. LV filling pressure is elevated. Other: Estimated PA systolic pressure is 62 mmHg, assuming a mean RAP of 10 mmHg. MEASUREMENTS: 2D Parasternal [place] LVOT 1.8 cm LA Ds 4.7 cm LVIDd 4.3 cm Index 2.4 cm/m Ao Rtd 3.3 cm Index 1.8 cm/m LVIDs 2.8 cm LV Mass 165.8 g (87-129) LV%fs 34.3 % LVM Index 91.6 g/m2 IVSd 1.1 cm RWT 0.6 LVPWd 1.2 cm LA Sng Plane LA Area 17.4 cm2 (8.8-23.4) LA Vol 44.6 ml Index 24.6 ml/m LA LngAx 5.6 cm RA Sng Plane RA Area 24.8 cm2 (8.3-19.5) RA Vol 90.5 ml Index 50 ml/m RA LngAx 5.7 cm Signed 03/03/2018 02:30 PM Katherin Benavides M.D. Performing Organization Address City/State/Zipcode Phone Number [facility] [address] [place] [address] * Us carotid duplex (03/02/2018 5:38 PM CDT) Specimen Narrative Performed At [facility] Vascular Ultrasound Laboratory Carotid Artery Duplex Report [address] [place] [address] For corporate quality assurance manager purposes, the categorization of the degree of the stenosis of this exam is based on criteria described in the IAC carotid stenosis grading white paper( www.intersocietal.org/Vascular) and Valdo Griffin., Светлана Hewitt., et al. Carotid artery stenosis: li-scale and Doppler US diagnosis--Society of Radiologists in Ultrasound Consensus Conference. Radiology. 2003 Nov; 229(2):340-6. Pat.Name:HIRO COX Jose.ID:[id number] .Date: 03/02/2018 Refer.MD:GARFIELD PETE MD Exam Time: 5:03:00 PMStudy Type:Carotid DOBAge:1940,77Y Sex: FEMALE Sonogrphr: Shashank Butler RVT Pat. Stat.:Inpatient Room:A022-VMzmaKci: SAVANNAH, CPT - 4: 55312 Echo Event ID:[id number] Order ID:[id number] Reason for Study:CAD; chronic diastolic heart failure and end-stage renal disease. Pre-op CABG Procedures:Colorflow, Grayscale/2D, Pulsed wave Doppler Race:C SUMMARY: PHYSICAL ASSESSMENT BloodPulsesCarotid Pressure Carotid TemporalBruit Right 142/65 ++0 Left AV fistula ++0 CAROTID ARTERY SCAN RIGHT: There is calcified plaque noted in the common carotid artery and bulb extending into the proximal internal and external carotid artery. Velocities are within normal limits and the vertebral artery is antegrade. LEFT: There is calcified plaque noted in the common carotid artery and bulb extending into the proximal internal and external carotid artery. Velocities are elevated within the internal carotid and external carotid artery. The vertebral artery is antegrade with increased velocities. PRELIMINARY FINDINGS 1. <50% stenosis in the right internal carotid artery. 2. Increased velocities in the left internal carotid artery; <50% stenosis per criteria 3. >50% stenosis in the left external carotid artery 4. The vertebral artery is antegrade, bilaterally with stenosis on the left PHYSICIAN INTERPRETATION Bilateral carotid duplex examination demonstrated atherosclerotic plaques in the bulbs. Less than 50% stenosis in the right bulb/internal carotid artery and 50-69% in the left ICA. Both vertebral arteries are antegrade. Left ECA stenosis. Carotid Findings:RightLeft Verteb.Flw AntegradeAbnormal Subclavian TriphasicDisturbed MEASUREMENTS: DOPPLER Right CCA Dist CCA Dist PSV84.7 cm/sCCA Dist EDV 9 cm/s Right CCA Mid CCA Mid PSV 89.9 cm/sCCA Mid EDV 11.6 cm/s Right CCA Prox CCA Prox PSV84.7 cm/sCCA Prox EDV 0 cm/s Right ECA Prox ECA Prox PSV 106 cm/sECA Prox EDV 0 cm/s Right ICA Dist ICA Dist PSV71.4 cm/Anita Dist EDV13.2 cm/s Right ICA Mid ICA Mid [id number] cm/Anita Mid EDV 14.4 cm/s Right ICA Prox ICA Prox PSV96.7 cm/Anita Prox EDV9.53 cm/s Right Vertebral Vertebral PSV 45.3 cm/sVertebral EDV 5.71 cm/s Right Subclavian Subclavian PSV 112 cm/sSubclavian EDV 0 cm/s Left CCA Dist CCA Dist PSV88.7 cm/sCCA Dist EDV14.4 cm/s Left CCA Mid CCA Mid PSV 92.4 cm/sCCA Mid EDV 13.6 cm/s Left CCA Prox CCA Prox PSV 128 cm/sCCA Prox EDV15.6 cm/s Left ECA Prox ECA Prox PSV 439 cm/sECA Prox EDV 0 cm/s Left ICA Dist ICA Dist PSV82.2 cm/Anita Dist EDV12.8 cm/s Left ICA Mid ICA Mid [id number] cm/Anita Mid EDV 16.4 cm/s Left ICA Prox ICA Prox PSV 170 cm/Anita Prox EDV16.4 cm/s Left Vertebral Vertebral VNL987 cm/sVertebral EDV 16.4 cm/s Left Subclavian Subclavian PSV 166 cm/sSubclavian EDV35.1 cm/s Right ICA/CCA Ratio ICA/CCA PSV 1.08 Left ICA/CCA Ratio ICA/CCA PSV 1.84 Signed 03/02/2018 09:17 PM David Cooper MD, RPVI Procedure Note Interface, Radiology Results In - 03/02/2018 9:19 PM CDT Vascular Ultrasound Laboratory Carotid Artery Duplex Report [address] [place] [address] For corporate quality assurance manager purposes, the categorization of the degree of the stenosis of this exam is based on criteria described in the IAC carotid stenosis grading white paper( www.intersocietal.org/Vascular) and Valdo Griffin., Roshni Hewitt, et al. Carotid artery stenosis: li-scale and Doppler US diagnosis--Society of Radiologists in Ultrasound Consensus Conference. Radiology. 2003 Apr; 229(2):340-6. Pat.Name: HIRO COX Pat.ID: [id number] .Date: 03/02/2018 Refer.MD: GARFIELD PETE MD Exam Time: 5:03:00 PM Study Type:Carotid Age: 8 1940,77Y Sex: FEMALE Sonogrphr: Shashank Butler RVT Pat. Stat.:[facility] Vol: , CPT - 4: 80365 Echo Event ID:[id number] Order ID: [id number] Reason for Study:CAD; chronic diastolic heart failure and end-stage renal disease. Pre-op CABG Procedures:Colorflow, Grayscale/2D, Pulsed wave Doppler Race: C SUMMARY: PHYSICAL ASSESSMENT Blood Pulses Carotid Pressure Carotid Temporal Bruit Right 142/65 + + 0 Left AV fistula + + 0 CAROTID ARTERY SCAN RIGHT: There is calcified plaque noted in the common carotid artery and bulb extending into the proximal internal and external carotid artery. Velocities are within normal limits and the vertebral artery is antegrade. LEFT: There is calcified plaque noted in the common carotid artery and bulb extending into the proximal internal and external carotid artery. Velocities are elevated within the internal carotid and external carotid artery. The vertebral artery is antegrade with increased velocities. PRELIMINARY FINDINGS 1. <50% stenosis in the right internal carotid artery. 2. Increased velocities in the left internal carotid artery; <50% stenosis per criteria 3. >50% stenosis in the left external carotid artery 4. The vertebral artery is antegrade, bilaterally with stenosis on the left PHYSICIAN INTERPRETATION Bilateral carotid duplex examination demonstrated atherosclerotic plaques in the bulbs. Less than 50% stenosis in the right bulb/internal carotid artery and 50-69% in the left ICA. Both vertebral arteries are antegrade. Left ECA stenosis. Carotid Findings: Right Left Verteb.Flw Antegrade Abnormal Subclavian Triphasic Disturbed MEASUREMENTS: DOPPLER Right CCA Dist CCA Dist PSV 84.7 cm/s CCA Dist EDV 9 cm/s Right CCA Mid CCA Mid PSV 89.9 cm/s CCA Mid EDV 11.6 cm/s Right CCA Prox CCA Prox PSV 84.7 cm/s CCA Prox EDV 0 cm/s Right ECA Prox ECA Prox PSV 106 cm/s ECA Prox EDV 0 cm/s Right ICA Dist ICA Dist PSV 71.4 cm/s ICA Dist EDV 13.2 cm/s Right ICA Mid ICA Mid PSV 105 cm/s ICA Mid EDV 14.4 cm/s Right ICA Prox ICA Prox PSV 96.7 cm/s ICA Prox EDV 9.53 cm/s Right Vertebral Vertebral PSV 45.3 cm/s Vertebral EDV 5.71 cm/s Right Subclavian Subclavian PSV 112 cm/s Subclavian EDV 0 cm/s Left CCA Dist CCA Dist PSV 88.7 cm/s CCA Dist EDV 14.4 cm/s Left CCA Mid CCA Mid PSV 92.4 cm/s CCA Mid EDV 13.6 cm/s Left CCA Prox CCA Prox PSV 128 cm/s CCA Prox EDV 15.6 cm/s Left ECA Prox ECA Prox PSV 439 cm/s ECA Prox EDV 0 cm/s Left ICA Dist ICA Dist PSV 82.2 cm/s ICA Dist EDV 12.8 cm/s Left ICA Mid ICA Mid PSV 125 cm/s ICA Mid EDV 16.4 cm/s Left ICA Prox ICA Prox PSV 170 cm/s ICA Prox EDV 16.4 cm/s Left Vertebral Vertebral PSV 200 cm/s Vertebral EDV 16.4 cm/s Left Subclavian Subclavian PSV 166 cm/s Subclavian EDV 35.1 cm/s Right ICA/CCA Ratio ICA/CCA PSV 1.08 Left ICA/CCA Ratio ICA/CCA PSV 1.84 Signed 03/02/2018 09:17 PM David Cooper MD, RPVI Performing Organization Address City/[facility] Phone Number [facility] [address] [place] [address] * Thyroid stimulating hormone (03/02/2018 5:20 AM CDT) TSH 1.13 0.27 - 4.20 uIU/mL [facility] DEPARTMENT OF PATHOLOGY AND GENOMIC MEDICINE Specimen Plasma specimen Performing Organization Address City/[facility] Phone Number [facility] DEPARTMENT [address] [address] PATHOLOGY AND GENOMIC MEDICINE * Lipid panel (03/02/2018 5:20 AM CDT) Cholesterol 142 <200 mg/dL [facility] DEPARTMENT OF PATHOLOGY AND GENOMIC MEDICINE Triglycerides 98 <150 mg/dL [facility] DEPARTMENT OF PATHOLOGY AND GENOMIC MEDICINE HDL cholesterol 61 >40 mg/dL [facility] DEPARTMENT OF PATHOLOGY AND GENOMIC MEDICINE LDL cholesterol 72Comment: Result obtained by <100 mg/dL [facility] DEPARTMENT direct LDL measurement OF PATHOLOGY AND GENOMIC MEDICINE Lipid panel SeeBelow [facility] DEPARTMENT interpretation Comment: OF PATHOLOGY Total Cholesterol AND GENOMIC (mg/dL) MEDICINE <200 Desirable 200-239Borderline -high >=240High Triglycerides (mg/dL) <150 Normal 150-199Borderline -high 200-499High >=500Very high HDL Cholesterol (mg/dL) <40Low (male) <40Low (female) LDL Cholesterol (mg/dL) <100 Optimal 100-129Near or above optimal 130-159Borderline -high 160-189High >=190Very high Risk Catergories that modify LDL goals. Risk Catergories LDL goal (mg/dL) CHD and CHD risk equivalent<100 (10-year risk >20%) Multiple (2+) risk factors <130 (10-year risk=<20%) 0-1 risk factors <160 (<10-year risk) Defining levels of lipids in metabolic syndrome Triglycerides >=150 mg/dL HDL Cholesterol Men <40 mg/dL Women <40 mg/dL Non-HDL cholesterol is a second target for therapy in persons with high triglycerides (>=200 mg/dL) Specimen Plasma specimen Performing Organization Address City/State/Zipcode Phone Number [facility] DEPARTMENT OF [address] [place] [address] PATHOLOGY AND GENOMIC MEDICINE after 10/27/2017 Insurance Type Payer Benefit Subscriber ID Effective Phone Address Plan / Dates Group Medicare MEDICARE MEDICARE xxxxxxxxxx [id number] JESSE, PART A AND [place] Advance Directives Patient has advance care planning documents on file. For more information, joe yin contact: Jesse Hidalgo [address] [place] [address]
[2018-10-28 17:32] LABS: BASOPHILS # (AUTO) 0.1 (0.0-0.1); BASOPHILS % 0.7 % (0.0-1.0); EOSINOPHILS # (AUTO) 0.3 (0.0-0.4); EOSINOPHILS % 3.3 % (0.0-6.0); HEMATOCRIT 38.1 % (34.2-44.1); HEMOGLOBIN 11.6 g/dL (12.0-16.0); LYMPHOCYTES # (AUTO) 1.3 (1.0-3.2); LYMPHOCYTES % 14.6 % (18.0-39.1); MEAN CORPUSCULAR HEMOGLOBIN 31.4 pg (28-32); MEAN CORPUSCULAR HGB CONC 30.4 g/dL (31-35); MEAN CORPUSCULAR VOLUME 103.3 fL (81-99); MONOCYTES # (AUTO) 0.5 (0.2-0.8); MONOCYTES % 5.5 % (4.4-11.3); NEUTROPHILS # (AUTO) 6.7 (2.1-6.9); NEUTROPHILS % 75.5 % (38.7-80.0); RED BLOOD COUNT 3.69 x10e6/uL (3.6-5.1)
[2018-10-28 17:35] LABS: PLATELET COUNT 92 x10e3/uL (140-360)
[2018-10-28 17:40] LABS: INR 1.08; PROTHROMBIN TIME 14.5 seconds (11.9-14.5)
[2018-10-28 17:41] LABS: PARTIAL THROMBOPLASTIN TIME 30.3 seconds (23.8-35.5)
[2018-10-28 17:50] LABS: ALBUMIN/GLOBULIN RATIO 0.7 (0.8-2.0); ANION GAP 14.2 mmol/L (8-16); CALCIUM 9.3 mg/dL (8.4-10.2); CREATININE, SERUM 4.12 mg/dL (0.57-1.11)
[2018-10-28 17:52] LABS: POTASSIUM 5.2 mmol/L (3.5-5.1)
[2018-10-28] MEDS ORDERED: ONDANSETRON HCL INJ 2MG/ML 2ML 2 MG/ML VIAL IV NR (18:00)
[2018-10-28] MEDS ORDERED: SODIUM CHLORIDE 0.9% 1000ML 1,000 ML IV ONE (18:00)
[2018-10-28] MEDS ORDERED: DIATRIZOATE MEGL/DIATRIZOA SOD 30 ML BTL PO ONE (18:14)
[2018-10-28] MEDS ORDERED: MORPHINE SULFATE INJ 4 MG/ML INJ 1ML IV NR (18:15)
--- NOTE | 2018-10-28 18:25 | Diagnostic Imaging Report ---
EXAMINATION: CHEST SINGLE (PORTABLE) INDICATION: ^back pain; heart pain ^[id number] ^1800 COMPARISON: Chest radiograph dated 01/27/2018 FINDINGS: AP view TUBES and LINES: None. LUNGS/PLEURA: Retrocardiac opacification may represent developing consolidation. Persistent interstitial thickening and airspace opacities in the remaining lungs. HEART AND MEDIASTINUM: Enlarged cardiomediastinal silhouette. Calcific aortic arch. Right-sided pacer/AICD. BONES AND SOFT TISSUES: No acute osseous lesion. Surgical clips in the left axilla. UPPER ABDOMEN: No free air under the diaphragm. IMPRESSION: Retrocardiac opacity concerning for developing consolidation. Follow-up is recommended after treatment. Persistent patchy airspace and interstitial opacities throughout the lungs. Persistent enlarged cardiac silhouette. Signed by: Clayton Cortes MD on 10/28/2018 6:21 PM
[2018-10-28] MEDS ORDERED: SODIUM CHLORIDE 0.9% 1000ML 1,000 ML IV SCH (19:17)
[2018-10-28] MEDS ORDERED: ONDANSETRON HCL INJ 2MG/ML 2ML 2 MG/ML VIAL IV PRN (19:30)
[2018-10-28] MEDS ORDERED: SODIUM CHLORIDE FLUSH 10 ML SYR INJ PRN (19:30)
[2018-10-28 19:53] LABS: BILIRUBIN,URINE MODERATE (NEGATIVE); CLARITY,URINE TURBID (CLEAR); COLOR,URINE BROWN (YELLOW); KETONES,URINE TRACE (NEGATIVE); LEUKOCYTE ESTERASE ,URINE LARGE (NEGATIVE); NITRITE,URINE POSITIVE (NEGATIVE); PROTEIN,URINE DIPSTICK 2+ (NEGATIVE); URINE UROBILINOGEN 1 mg/dL (0.2 - 1)
--- NOTE | 2018-10-28 19:57 | Diagnostic Imaging Report ---
EXAM: CT Abdomen and Pelvis WITHOUT contrast INDICATION: ^Right sided flank and abdominal pain also suprapubic ^[id number] ^1907 COMPARISON: CT abdomen 10/07/2017 and chest radiograph 10/28/2018 and 01/27/2018 TECHNIQUE: Abdomen and pelvis were scanned utilizing a multidetector helical scanner from the lung base to the pubic symphysis without administration of IV contrast. Absence of intravenous contrast decreases sensitivity for detection of focal lesions and vascular pathology. Coronal and sagittal reformations were obtained. Routine protocol was performed. IV CONTRAST: None. ORAL CONTRAST: Water RADIATION DOSE: Total DLP: 588 mGy*cm Estimated effective dose: (DLP x 0.015 x size factor) mSv COMPLICATIONS: None FINDINGS: LINES and TUBES: Partially visualized ICD leads in the right atrium and right ventricle. LOWER THORAX: Cardiomegaly. Chronic left lower lobe and right middle lobe consolidations with moderate bronchiectasis remain unchanged. Inter and intralobular septal thickening with groundglass opacities and mild bronchiectasis in the right lower lobe in the previous seen large consolidation. These findings are suggestive of chronic aspiration with chronic infection. There are few indeterminate 2 to 3 mm right lower lobe pulmonary nodules, for example on series 2, image 1, which are unchanged. HEPATOBILIARY: No focal hepatic lesions. No intrahepatic biliary ductal dilation. The common bile duct is mildly dilated measuring 1.1 cm, unchanged. GALLBLADDER: Distention of the gallbladder measuring up to 5.2 cm in transverse diameter, previously 4.4 cm consistent with mild hydrops. Linear calcification within the dependent portion of the gallbladder on series 2, image 30 is suggestive of few small gallstones versus gallbladder sludge, unchanged. No wall thickening. SPLEEN: Splenomegaly. The spleen measure 14.6 cm in length in the craniocaudal dimension. 1.8 cm subcapsular hypodensity in the lateral aspect of the spleen on series 2, image 30 with peripheral calcification may represent a hemangioma or remote posttraumatic cyst. PANCREAS: No focal masses or ductal dilatation. Diffuse atrophy of the pancreas. ADRENALS: Multiple bilateral adrenal gland nodules measuring up to 2.2 cm and measuring fat density are suggestive of adrenal gland adenomas, unchanged since prior exam. KIDNEYS/URETERS: The right kidney is mildly atrophic. No hydronephrosis. Mildly complex 2.1 cm partially exophytic cyst in the upper pole of the left kidney on series 2, image 29 is incompletely evaluated on this exam but remains is stable in size and appearance when compared to 10/07/2017. Unchanged simple cyst in the inferior pole of the left kidney. 2 mm calcification in the upper pole of the left kidney appears to represent a nonobstructing stone on coronal image 71. Multiple additional linear calcifications in both kidneys appear to represent vascular calcifications rather than stones. GI TRACT: The stoma is mildly distended and associated with diffuse wall thickening, this was not seen on prior exam. There is also mild diffuse wall thickening of the small bowel, worse in the duodenum and ileum in the upper abdomen, for example on coronal image 50 mild diffuse circumferential wall thickening of the rectum may be overestimated by poor distention. Appendix is normal. PELVIC ORGANS/BLADDER: Unremarkable. LYMPH NODES: Multiple gastrohepatic and mesenteric noncalcified lymph nodes, measuring up to 1.2 cm on series 2, image 33 remain unchanged. 1.7 cm peripherally calcified soft tissue density in the right lower quadrant lateral to the colon on series 2, image 44 suggestive of calcified lymph nodes versus old fat necrosis. VESSELS: Diffuse atherosclerotic calcifications throughout the abdominal aorta and pelvic arteries resulting in moderate narrowing at the distal segment. No aneurysm. Extensive calcifications of the mesenteric arteries. PERITONEUM / RETROPERITONEUM: No free air or fluid. BONES: Progressive endplate sclerosis with cortical disruption and associated anterior soft tissue density at L1-L2. Advanced multilevel degenerative changes of the lumbar spine. SOFT TISSUES: Large fat containing umbilical hernia measuring 6.5 cm, unchanged. IMPRESSION: 1. Nonobstructing left renal stone. No additional calcified stones in the bilateral collecting system or urinary bladder. No hydroureteronephrosis. Stable indeterminate left upper pole renal cyst. 2. Progressive distention of the transverse diameter of the gallbladder with associated small amount of sludge but no wall thickening or pericholecystic fluid may reflect chronic gallbladder disease. 3. Diffuse circumferential wall thickening of the stomach and proximal small bowel may be inflammatory, infectious, cannot exclude lymphoma. Recommend GI consultation. 4. Worsening endplate sclerosis with cortical disruption and associated soft tissue component at L1-L2 when compared to 09/07/2017 and may reflect osteomyelitis. Signed by: Dr. Chyna Dowell M.D. on 10/28/2018 7:54 PM
[2018-10-28] MEDS ORDERED: MEROPENEM 500MG 500 MG in SODIUM CHLORIDE 0.9% 50ML 50 ML IV NR (20:00)
[2018-10-28 20:05] LABS: BACTERIA,URINE MANY /HPF
--- OUTSIDE RECORDS SUMMARY | 2018-10-28 20:05 | XMS REPORT | Clinical Summary ---
Author Author [facility] [employer] [facility] [employer] Address Unknown Phone Unavailable Care Team Providers Care Newspaper Writer Name Role Phone Oscar Luna MD PCP [...] stage renal disease) (HCC) (Primary Dx) 03/12/2018 [facility] General Internal Medicine - Encounter 03/18/2018 Ajit Mancia DO ESRD (end stage renal disease) (HCC) (Primary Dx); Right inguinal pain; Ecchymosis 03/12/2018 Emergency Emergency Medicine Misael Harrington RN 03/11/2018 Patient Quality Outreach Brandon Leiva MD [facility] percutaneous cardiac angioplasty [07626 (CPT)] 03/10/2018 Surgery Procedural Cardiology Vinay Cisneros MD 03/04/2018 Documentation Cardiovascular Jules Julien MD Chronic obstructive pulmonary disease, unspecified COPD type (Primary Dx); Coronary artery disease, angina presence unspecified, unspecified vessel or lesion type, unspecified whether little river or transplanted heart; ACS (acute coronary syndrome) [...] / Lot Implanted Type Area Manufactur er [id number] / / Catheter Cardiac 7f Mach 1 Fr4 - Cardiovasc N/A: N/A [facility] [id number] ular INTERVENTI Implanted: 03/10/2018 (Quantity not Implants ONAL on file) CARDIOLOGY [id number] / / Catheter Cardiac 7f Mach 1 Al 75 Sh Cardiovasc N/A: N/A [facility] - [id number] ular INTERVENTI Implanted: 03/10/2018 (Quantity not Implants ONAL on file) CARDIOLOGY 09/09/2019 [id number] / / Stent System 3.0 X 22mm Resolute Coronary N/A: N/A [employer] [place] Otw Coronary - [id number] Stents [place] - Implanted: Qty: 1 on 03/10/2018 by CARDIAC Brandon Leiva MD [facility]YHTYM [facility] [id number] / / Stent System 3.5 X 22mm Resolute Coronary N/A: N/A [employer] [place] Otw Coronary - [id number] Stents [place] - Implanted: 03/10/2018 (Quantity not CARDIAC on file) RYHTYM MGMT 07/31/2019 [id number] / / Stent System 3.5 X 15mm Resolute Coronary N/A: N/A [employer] Eugene Otw Coronary - [id number] Stents [place] - Implanted: Qty: 1 on [...] unspecified vessel or lesion type, unspecified whether little river or transplanted heart ACTIVATED CLOTTING TIME Routine [...] MMODE SPECTRAL 10:08 AM CDT COLOR DOPPLER (09464) POC GLUCOSE Routine 03/03/2018 7:33 AM CDT [...] ABSTRACTED LVEF (09/12/2018 1:47 PM CDT) Pathologist [facility] LV EF 55 % Specimen * POC glucose (03/18/2018 11:40 AM CDT) Only the most recent of 68 results within the time period is included. [facility] POC glucose 121 (H) 65 - 99 mg/dL [facility] DEPARTMENT Comment: OF PATHOLOGY [facility] Notified RN AND GENOMIC Meter ID: [id number] MEDICINE Business Travel Consultant: Alex Sullivan Specimen Performing Organization Address City/[facility] Phone Number [facility] DEPARTMENT OF [address] [place] [address] PATHOLOGY AND GENOMIC MEDICINE * Estimated GFR (03/15/2018 1:31 PM CDT) Only the most recent of 14 results within the time period is included. [facility] Estimated GFR 8 (A) mL/min/1.73 m2 [facility] DEPARTMENT Comment: OF PATHOLOGY CatergoryUnitsInte AND GENOMIC rpretation MEDICINE G1 >=90 Normal or high G2 60-89Mildly decreased [id number] Mildly to moderately decreased [id number] Moderately to severely decreased G4 15-29Severely decreased G5 <15Kidney failure The eGFR was calculated using the Chronic Kidney Disease Epidemiology Collaboration (CKD-EPI) equation. Interpretation is based on recommendations of the National Kidney Foundation-Kidney Disease Outcomes Quality Initiative (NKF-KDOQI) published in 2014. Specimen Plasma specimen Performing Organization Address City/State/Zipcode Phone Number [facility] DEPARTMENT OF [address] [place] [address] PATHOLOGY AND GENOMIC MEDICINE * CBC with platelet and differential (03/15/2018 1:31 PM CDT) Only the most recent of 11 results within the time period is included. [facility] WBC 5.02 4.50 - 11.00 k/uL [facility] DEPARTMENT OF PATHOLOGY AND GENOMIC MEDICINE RBC 2.99 (L) 4.20 - 5.50 m/uL [facility] DEPARTMENT OF PATHOLOGY AND GENOMIC MEDICINE HGB 8.3 (L) 12.0 - 16.0 g/dL [facility] DEPARTMENT OF PATHOLOGY AND GENOMIC MEDICINE HCT 27.9 (L) 37.0 - 47.0 % [facility] DEPARTMENT OF PATHOLOGY AND GENOMIC MEDICINE MCV 93.3 82.0 - 100.0 fL [facility] DEPARTMENT OF PATHOLOGY AND GENOMIC MEDICINE MCH 27.8 27.0 - 34.0 pg [facility] DEPARTMENT OF PATHOLOGY AND GENOMIC MEDICINE MCHC 29.7 (L) 31.0 - 37.0 g/dL [facility] DEPARTMENT OF PATHOLOGY AND GENOMIC MEDICINE RDW - SD 67.3 (H) 37.0 - 55.0 fL [facility] DEPARTMENT OF PATHOLOGY AND GENOMIC MEDICINE MPV 11.9 8.8 - 13.2 fL [facility] DEPARTMENT OF PATHOLOGY AND GENOMIC MEDICINE Platelet count 91 (L) 150 - 400 k/uL [facility] DEPARTMENT OF PATHOLOGY AND GENOMIC MEDICINE Nucleated RBC 0.00 /100 WBC [facility] DEPARTMENT OF PATHOLOGY AND GENOMIC MEDICINE Neutrophils 60.5 39.0 - 69.0 % [facility] DEPARTMENT OF PATHOLOGY AND GENOMIC MEDICINE Lymphocytes 25.5 25.0 - 45.0 % [facility] DEPARTMENT OF PATHOLOGY AND GENOMIC MEDICINE Monocytes 8.0 0.0 - 10.0 % [facility] DEPARTMENT OF PATHOLOGY AND GENOMIC MEDICINE Eosinophils 5.0 0.0 - 5.0 % [facility] DEPARTMENT OF PATHOLOGY AND GENOMIC MEDICINE Basophils 0.8 0.0 - 1.0 % [facility] DEPARTMENT OF PATHOLOGY AND GENOMIC MEDICINE Immature 0.2Comment: "Immature 0.0 - 1.0 % [facility] DEPARTMENT granulocytes granulocytes" (promyelocytes, OF PATHOLOGY myelocytes, metamyelocytes) AND GENOMIC MEDICINE Specimen Blood Performing Organization Address City/[facility] Centercode Phone Number [facility] [place] [address] PATHOLOGY AND GENOMIC MEDICINE * Phosphorus level (03/15/2018 1:31 PM CDT) Only the most recent of 2 results within the time period is included. Phosphorus 6.1 (H) 2.4 - 4.5 mg/dL [facility] DEPARTMENT OF PATHOLOGY AND GENOMIC MEDICINE Specimen Plasma specimen Performing Organization Address [facility] Centercode Phone Number [facility] [place] [place] [address] PATHOLOGY AND GENOMIC MEDICINE * Magnesium level (03/15/2018 1:31 PM CDT) Only the most recent of 2 results within the time period is included. Pathologist [facility] Magnesium 2.2 1.6 - 2.4 mg/dL [facility] DEPARTMENT OF PATHOLOGY AND GENOMIC MEDICINE Specimen Plasma specimen Performing Organization Address City/[facility]/[place] [address] PATHOLOGY AND GENOMIC MEDICINE * Basic metabolic panel (03/15/2018 1:31 PM CDT) Only the most recent of 10 results within the time period is included. Sodium 134 (L) 135 - 148 mEq/L [facility] DEPARTMENT OF PATHOLOGY AND GENOMIC MEDICINE Potassium 4.9 3.5 - 5.0 mEq/L [facility] DEPARTMENT OF PATHOLOGY AND GENOMIC MEDICINE Chloride 92 (L) 98 - 112 mEq/L [facility] DEPARTMENT OF PATHOLOGY AND GENOMIC MEDICINE CO2 26 24 - 31 mEq/L [facility] DEPARTMENT OF PATHOLOGY AND GENOMIC MEDICINE Anion gap 16@ANIO (H) 7 - 15 mEq/L [facility] DEPARTMENT OF PATHOLOGY AND GENOMIC MEDICINE BUN 38 (H) 8 - 23 mg/dL [facility] DEPARTMENT OF PATHOLOGY AND GENOMIC MEDICINE Creatinine 4.90 (H) 0.50 - 0.90 mg/dL [facility] DEPARTMENT OF PATHOLOGY AND GENOMIC MEDICINE Glucose 184 (H) 65 - 99 mg/dL [facility] DEPARTMENT OF PATHOLOGY AND GENOMIC MEDICINE Calcium 8.8 8.8 - 10.2 mg/dL [facility] DEPARTMENT OF PATHOLOGY AND GENOMIC MEDICINE Specimen Plasma specimen Performing Organization Address City/[facility] Centercoid [place] [address] PATHOLOGY AND GENOMIC MEDICINE * CT Abdomen [...] in the context of the patient's anasarca. [facility]-[id number] Procedure Note Hm Interface, Radiology Results Incoming [...] in the context of the patient's anasarca. [facility]-[id number] Performing Organization Address City/State/Zipcode Phone Number [facility] [address] [place] [address] * Comprehensive metabolic panel (03/12/2018 6:48 PM CDT) Only the most recent of 3 results within the time period is included. Sodium 134 (L) 135 - 148 mEq/L [facility] DEPARTMENT OF PATHOLOGY AND GENOMIC MEDICINE Potassium 5.6 (H) 3.5 - 5.0 mEq/L [facility] DEPARTMENT OF PATHOLOGY AND GENOMIC MEDICINE Chloride 96 (L) 98 - 112 mEq/L [facility] DEPARTMENT OF PATHOLOGY AND GENOMIC MEDICINE CO2 22 (L) 24 - 31 mEq/L [facility] DEPARTMENT OF PATHOLOGY AND GENOMIC MEDICINE Anion gap 16@ANIO (H) 7 - 15 mEq/L [facility] DEPARTMENT OF PATHOLOGY AND GENOMIC MEDICINE BUN 58 (H) 8 - 23 mg/dL [facility] DEPARTMENT OF PATHOLOGY AND GENOMIC MEDICINE Creatinine 4.88 (H) 0.50 - 0.90 mg/dL [facility] DEPARTMENT OF PATHOLOGY AND GENOMIC MEDICINE Glucose 184 (H) 65 - 99 mg/dL [facility] DEPARTMENT OF PATHOLOGY AND GENOMIC MEDICINE Calcium 8.9 8.8 - 10.2 mg/dL [facility] DEPARTMENT OF PATHOLOGY AND GENOMIC MEDICINE Protein 7.1 6.3 - 8.3 g/dL [facility] DEPARTMENT Comment: OF PATHOLOGY AND GENOMIC 4.6-7.0 g/dL MEDICINE 1 week 4.4-7.6 g/dL 7 months-1year 5.1-7.3 g/dL 1-2 years5.6-7 .5 g/dL >3 years6.0-8 .0 g/dL 18-150 6.3-8.3 g/dL Albumin 2.9 (L) 3.5 - 5.0 g/dL [facility] DEPARTMENT OF PATHOLOGY AND GENOMIC MEDICINE A/G ratio 0.7 0.7 - 3.8 [facility] DEPARTMENT OF PATHOLOGY AND GENOMIC MEDICINE Alkaline 96 35 - 104 U/L [facility] DEPARTMENT phosphatase OF PATHOLOGY AND GENOMIC MEDICINE AST 20 10 - 35 U/L [facility] DEPARTMENT OF PATHOLOGY AND GENOMIC MEDICINE ALT 15 5 - 50 U/L [facility] DEPARTMENT OF PATHOLOGY AND GENOMIC MEDICINE Total bilirubin <0.2 0.0 - 1.2 mg/dL [facility] DEPARTMENT OF PATHOLOGY AND GENOMIC MEDICINE Specimen Plasma specimen Performing Organization Address City/[facility] Centercoid Phone Number [facility] DEPARTMENT [address] [address] PATHOLOGY AND GENOMIC MEDICINE * XR Chest [...] demineralized with degenerative changes in the spine. [facility]-[id number] Procedure Note Interface, Radiology Results Incoming - [...] demineralized with degenerative changes in the spine. [facility]-[id number] Performing Organization Address City/[facility]ercoid Phone Number [facility] [address] [place] [address] * ECG 12 lead (03/12/2018 4:00 PM CDT) Only the most recent of 2 results within the time period is included. Ventricular 69 [facility] MUSE rate Atrial rate 69 [facility] MUSE WA interval 212 [facility] MUSE QRSD interval 90 [...] Specimen Performing Organization Address City/State/Zipcode Phone Number [facility] ANG [address] [place] [address] * PV duplex arterial lower extremity (03/12/2018 8:35 AM CDT) Specimen Narrative Performed At [facility] Vascular Ultrasound Laboratory Lower Extremity Arterial Duplex Report [address]Name:HIRO COXchun.ID:[id number] St.Date: 03/12/2018Refer.MD:PHYSICIAN, EMERGENCY, MD Exam Time: 8:00:00 AMStudy Type:LE Arterial DOBAge:1940,77Y Sex: FEMALE Sonogrphr: Raulito Sánchez, RVSPat. Stat.:Outpatient Room:ERTapeVol: [facility] - 4: 86750 Echo Event ID:[id number] Order ID:[id number] Reason for Study:Right groin pain; S/P right [...] Ultrasound Laboratory Lower Extremity Arterial Duplex Report [address] [place] [address] Pat.Name: HIRO COX Pat.ID: [id number] St.Date: 03/12/2018 Refer.MD: PHYSICIAN, EMERGENCY, MD Exam Time: 8:00:00 AM Study Type:LE Arterial Age: 8 1940,77Y Sex: FEMALE Sonogrphr: URIAH Lamb Pat. Stat.:Outpatient Room: ER Tape Vol: , [facility] - 4: [id number] Echo Event ID:[id number] Order ID: [id number] Reason for Study:Right groin pain; S/P right [...] Organization Address City/State/Zipcode Phone Number [facility] [address] [place] [id number] * Creatinine level (03/11/2018 5:18 AM CDT) Creatinine 2.89 (H) 0.50 - 0.90 mg/dL [facility] DEPARTMENT OF PATHOLOGY AND GENOMIC MEDICINE Specimen Plasma specimen Performing Organization Address City/[facility] Centercode Phone Number [facility] DEPARTMENT OF [address] [place] [address] PATHOLOGY AND GENOMIC MEDICINE * ECG Pre/Post Op (in AM) (03/10/2018 6:33 PM CDT) Ventricular 75 [facility] MUSE rate Atrial rate 75 [facility] MUSE WA interval 184 [facility] MUSE QRSD interval 92 H MUSE QT interval 398 [facility] MUSE QTC interval 444 [facility] MUSE P axis 1 60 [facility] MUSE QRS axis 1 91 [facility] MUSE T wave axis 31 [facility] MUSE EKG impression Normal sinus rhythm-Possible [facility] MUSE Left atrial enlargement-Rightward axis-ST & T wave abnormality, consider anterolateral ischemia-Abnormal ECG-In automated comparison with ECG of 04-MAR-2018 14:32,-T wave inversion less evident in Inferior leads-T wave inversion less evident in Lateral leads- Specimen Performing Organization Address [facility] Centercoid Phone Number [facility] [address] [place] [address] * Cv lab engineer procedure (03/10/2018 5:56 PM CDT) Specimen Narrative Performed At [facility] SURGEON: Brandon Leiva MD DEPUTY CLERK OF COURT: Edgar Moran PREOPERATIVE DIAGNOSES: 1.Acute coronary syndrome. [...] thus I opted to proceed with a 7-Iraqi system. The right femoral artery was anesthetized with 1% Xylocaine without epinephrine and the artery entered without difficulty using a standard 18-gauge AMC needle. A 7-Iraqi short arterial sheath was utilized for access.Similarly, the right femoral vein was entered with the same 18-gauge AMC needle and a short 6-Iraqi venous sheath utilized for access.We did not [...] artery.The first guiding catheter chosen was a 7-Iraqi FR4 non-side hole catheter and while this [...] necessary.A 3.0 x 22 mm Resolute medicated [place] stent was then deployed and postdilated with a 3 mm noncompliant balloon.The end result was no residual stenosis, TIMI3 distal flow and no evidence of proximal or distal dissection. We next turned our attention to the left anterior descending.The guiding catheter chosen was a 7-Iraqi XB LAD 3.5 side-hole guide.This provided adequate coaption.The lesion was crossed with a same 0.014 BMW exchange length wire and predilated with a 2.5 x 12 mm semicomplaint balloon.The lesion again yielded and thus no rotational atherectomy was needed.A 3.5 x 22 mm Resolute [place] drug eluting stent was then deployed across the stenosis which bridged the major septal office support specialist.While there was no evidence of edge dissection, I was concerned because of a density loss noted proximally.In one view, there did not appear to be a problem, but in the THAI caudal view, there was very clearly a [...] a hemodynamic view point. Performing Organization Address [facility] [place] [address] * Activated clotting time (03/10/2018 4:58 PM CDT) [facility] Activated 274 (H) 96 - 152 sec [facility] DEPARTMENT clotting time Comment: OF PATHOLOGY Meter ID: [id number] AND GENOMIC Business Travel Consultant: Yordan Vi MEDICINE Specimen Performing Organization Address [facility] [place] Phone Number [facility] DEPARTMENT OF [address] [place] [address] PATHOLOGY AND testbirds MEDICINE * Prothrombin time with INR (03/10/2018 8:42 AM CDT) Only the most recent of 2 results within the time period is included. [facility] Prothrombin 14.4 12.0 - 15.0 sec [facility] DEPARTMENT time OF PATHOLOGY AND GENOMIC MEDICINE INR 1.1 [facility] DEPARTMENT Comment: OF PATHOLOGY The International Normalized AND GENOMIC Ratio (INR) is a therapeutic MEDICINE monitoring tool for patients who are stable on oral anticoagulant therapy. An INR of 2.0-3.0 is suggested for deep vein thrombosis/pulmonary embolism. Specimen Blood Performing Organization Address [facility] Centercode Phone Number [facility] [place] [address] PATHOLOGY AND testbirds MEDICINE * CBC hemogram (03/08/2018 6:00 AM CDT) Only the most recent of 2 results within the time period is included. [facility] WBC 5.87 4.50 - 11.00 k/uL [facility] DEPARTMENT OF PATHOLOGY AND GENOMIC MEDICINE RBC 3.94 (L) 4.20 - 5.50 m/uL [facility] DEPARTMENT OF PATHOLOGY AND GENOMIC MEDICINE HGB 10.5 (L) 12.0 - 16.0 g/dL [facility] DEPARTMENT OF PATHOLOGY AND GENOMIC MEDICINE HCT 36.5 (L) 37.0 - 47.0 % [facility] DEPARTMENT OF PATHOLOGY AND GENOMIC MEDICINE MCV 92.6 82.0 - 100.0 fL [facility] DEPARTMENT OF PATHOLOGY AND GENOMIC MEDICINE MCH 26.6 (L) 27.0 - 34.0 pg [facility] DEPARTMENT OF PATHOLOGY AND GENOMIC MEDICINE MCHC 28.8 (L) 31.0 - 37.0 g/dL [facility] DEPARTMENT OF PATHOLOGY AND GENOMIC MEDICINE RDW - SD 62.9 (H) 37.0 - 55.0 fL [facility] DEPARTMENT OF PATHOLOGY AND GENOMIC MEDICINE MPV 12.3 8.8 - 13.2 fL [facility] DEPARTMENT OF PATHOLOGY AND GENOMIC MEDICINE Platelet count 106 (L) 150 - 400 k/uL [facility] DEPARTMENT OF PATHOLOGY AND GENOMIC MEDICINE Nucleated RBC 0.00 /100 WBC [facility] DEPARTMENT OF PATHOLOGY AND GENOMIC MEDICINE Specimen Blood Performing Organization Address City/State/[facility] Centercode Phone Number [facility] [place] [address] PATHOLOGY [facility] testbirds [facility] * Hemoglobin A1c (03/05/2018 6:00 AM CDT) Only the most recent of 3 results within the time period is included. Hemoglobin A1C 7.4 (H) 4.0 - 5.6 % [facility] DEPARTMENT Comment: OF PATHOLOGY HbA1c cutoffs [...] Specimen Performing Organization Address City/State/Zipcode Phone Number [facility] DEPARTMENT OF [address] [place] [address] PATHOLOGY AND GENOMIC MEDICINE * Spirometry pre & post w/ bronchodilator, diffusion (03/04/2018 7:49 AM CDT) [facility] FEV1 Post 0.89 1.68 - 2.92 L [...] LLN 73 [employer] Specimen Performing Organization Address [facility] Centercode Phone Number [facility] [address] [place] [address] * Hepatitis B surface antigen (03/03/2018 2:00 PM CDT) Hepatitis B Non-reactive Non-reactive [facility] DEPARTMENT surface Ag OF PATHOLOGY AND GENOMIC MEDICINE Specimen Blood Performing Organization Address [facility]ode Phone Number [facility] DEPARTMENT OF [address] [place] [address] PATHOLOGY AND GENOMIC MEDICINE * Echocardiogram complete w contrast and 3D if needed (03/03/2018 10:08 AM CDT) Specimen Narrative Performed At [facility] Echocardiography Report [address] [place] [address] Pat.Name:HIRO COX.ID:[id number] .Date: 03/03/2018 Refer.MD:GARFIELD PETE MD Exam Time: 10:29:00 AM Study Type:Routine Echo Height:65inWeight:161lb BSA: 1.81 m2 DOBAge:1940,77Y Sex: FEMALEBP:127/60 HR:61 bpmSonogrphr: SABINE Vega Pat. Stat.:Inpatient Room: 919 Study Status:Final Echo Event ID:[id number] Order ID:[id number] Reason for Study:CAD, chronic CHF Procedures:2D Echo, [...] RAPof 10 mmHg. MEASUREMENTS: 2D Parasternal [place] LVOT 1.8 cmLA Ds4.7 cm LVIDd4.3 cmIndex2.4 cm/m Ao Rtd 3.3 cm Index1.8 cm/m LVIDs2.8 cmLV Jbwa152.8 g(87-129) LV%fs 34.3 % LVM Index 91.6 [...] - 03/03/2018 2:30 PM CDT Echocardiography Report [address] [address] Pat.Name: HIRO COX Pat.ID: [id number] .Date: 03/03/2018 Refer.MD: GARFIELD PETE MD Exam Time: 10:29:00 AM Study Type:Routine Echo Height: 65in Weight: 161lb BSA: 1.81 m2 Age: 8 1940,77Y Sex: FEMALE BP: 127/60 HR: 61 bpm Sonogrphr: SABINE Vega Pat. Stat.:Inpatient Room: [facility] Study Status:Final Echo Event ID:[id number] Order ID: [id number] Reason for Study:CAD, chronic CHF Procedures:2D Echo, [...] of 10 mmHg. MEASUREMENTS: 2D Parasternal [place] LVOT 1.8 cm LA Ds 4.7 cm [...] M.D. Performing Organization Address City/State/Zipcode Phone Number [facility] [address] [place] [address] * Us carotid duplex (03/02/2018 5:38 PM CDT) Specimen Narrative Performed At [facility] Vascular Ultrasound Laboratory Carotid Artery Duplex Report [address] [place] [address] For quality checker purposes, the categorization of the degree of the stenosis of this exam is based on criteria described in the IAC carotid stenosis grading white paper( www.intersocietal.org/Vascular) and Valdo Griffin., Светлана Hewitt., et al. Carotid artery stenosis: li-scale and Doppler US diagnosis--Society of Radiologists in Ultrasound Consensus Conference. Radiology. 2003 Nov; 229(2):340-6. Pat.Name:HIRO COX Jose.ID:[id number] .Date: 03/02/2018 Refer.MD:GARFIELD PETE MD Exam Time: 5:03:00 PMStudy Type:Carotid DOBAge:1940,77Y Sex: FEMALE Sonogrphr: Shashank Butler RVT Pat. Stat.:Inpatient Room:O551-QGmlpCrv: SAVANNAH, CPT - 4: 969[address] Echo Event ID:[id number] Order ID:[id number] Reason for Study:CAD; chronic diastolic heart failure [...] EDV13.2 cm/s Right ICA Mid ICA Mid [id number] cm/Anita Mid EDV 14.4 cm/s Right ICA [...] EDV12.8 cm/s Left ICA Mid ICA Mid [id number] cm/Aniat Mid EDV 16.4 cm/s Left ICA Prox ICA Prox PSV 170 cm/Anita Prox EDV16.4 cm/s Left Vertebral Vertebral [id number] cm/sVertebral EDV 16.4 cm/s Left Subclavian Subclavian PSV 166 cm/sSubclavian EDV35.1 cm/s Right ICA/CCA Ratio ICA/CCA PSV 1.08 Left ICA/CCA Ratio ICA/CCA PSV 1.84 Signed 03/02/2018 09:17 PM David Cooper MD, RPVI Procedure Note Interface, Radiology Results In - 03/02/2018 9:19 PM CDT Vascular Ultrasound Laboratory Carotid Artery Duplex Report [address] [place] [address] For quality checker purposes, the categorization of the degree of the stenosis of this exam is based on criteria described in the IAC carotid stenosis grading white paper( www.intersocietal.org/Vascular) and Valdo Griffin., Roshni Hewitt, et al. Carotid artery stenosis: li-scale and Doppler US diagnosis--Society of Radiologists in Ultrasound Consensus Conference. Radiology. 2003 Apr; 229(2):340-6. Pat.Name: HIRO COX Pat.ID: [id number] .Date: 03/02/2018 Refer.MD: GARFIELD PETE MD Exam Time: 5:03:00 PM Study Type:Carotid Age: 8 1940,77Y Sex: FEMALE Sonogrphr: Shashank Butler RVT Pat. Stat.:[facility]: , CPT - 4: 19976 Echo Event ID:[id number] Order ID: [id number] Reason for Study:CAD; chronic diastolic heart failure [...] David Cooper MD, RPVI Performing Organization Address City/[facility] Cent[facility]ode Phone Number [facility] [address] [place] [address] * Thyroid stimulating hormone (03/02/2018 5:20 AM CDT) TSH 1.13 0.27 - 4.20 uIU/mL [facility] DEPARTMENT OF PATHOLOGY AND GENOMIC MEDICINE Specimen Plasma specimen Performing Organization Address City/[facility] Phone Number [facility] DEPARTMENT [address] [address] PATHOLOGY AND GENOMIC MEDICINE * Lipid panel (03/02/2018 5:20 AM CDT) Cholesterol 142 <200 mg/dL [facility] DEPARTMENT OF PATHOLOGY AND GENOMIC MEDICINE Triglycerides 98 <150 mg/dL [facility] DEPARTMENT OF PATHOLOGY AND GENOMIC MEDICINE HDL cholesterol 61 >40 mg/dL [facility] DEPARTMENT OF PATHOLOGY AND GENOMIC MEDICINE LDL cholesterol 72Comment: Result obtained by <100 mg/dL [facility] DEPARTMENT direct LDL measurement OF PATHOLOGY AND GENOMIC MEDICINE Lipid panel SeeBelow [facility] DEPARTMENT interpretation Comment: OF PATHOLOGY Total [...] specimen Performing Organization Address City/State/Zipcode Phone Number [facility] DEPARTMENT OF [address] [place] [address] PATHOLOGY AND GENOMIC MEDICINE after 10/27/2017 Insurance Type Payer Benefit Subscriber ID Effective Phone Address Plan / Dates Group Medicare MEDICARE MEDICARE xxxxxxxxxx [id number] JESSE, PART A AND [place] B Advance Directives Patient has advance care planning documents on file. For more information, joe yin contact: Jesse Hidalgo [address] [place] [address]
--- NOTE | 2018-10-28 20:45 | NUR ---
SPOKE WITH PT REGARDING HOME MEDS, STATES SHE DOES NOT KNOW MEDS AND HAS LIST AND HAS ALREADY GONE HOME. DR SIMPSON SPOKE WITH DR PAGAN FOR CONSULT. ADVISED TO LET FLOOR NURSE KNOW TO CALL FOR DIALYSIS TOMORROW. INGA NOTIFIED ON OBS UNIT.
--- NOTE | 2018-10-28 20:50 | NUR ---
Pt received from ER. Pt A&O and in no apparent distress. Pt bilat BKA. Pt on 2LNC and no tele. All safety measures ensured, bed alarm on, and call lopez near. Pt encouraged to use call lopez for assistance.
[2018-10-28 21:10] VITALS: BP 108/60
[2018-10-28 21:39] VITALS: BP 108/60
[2018-10-28 21:51] VITALS: BP 108/60
--- NOTE | 2018-10-28 22:01 | NUR ---
Pt is a MWF hemodialysis. ER stated in report for [facility] to be contacted for dialysis. Called [facility] but they stated consent and order needed for dialysis. Called Dr. Ennis to get order for dialysis. Dr. Barcenas covering and gave okay for dialysis and to contact [facility].
[2018-10-29] VITALS (8 sets, daily range): BP systolic 99–150; BP diastolic 52–75
[2018-10-29 05:52] LABS: BASOPHILS # (AUTO) 0.1 (0.0-0.1); BASOPHILS % 0.6 % (0.0-1.0); EOSINOPHILS # (AUTO) 0.3 (0.0-0.4); EOSINOPHILS % 3.5 % (0.0-6.0); HEMATOCRIT 35.6 % (34.2-44.1); HEMOGLOBIN 10.6 g/dL (12.0-16.0); LYMPHOCYTES # (AUTO) 1.8 (1.0-3.2); LYMPHOCYTES % 19.6 % (18.0-39.1); MEAN CORPUSCULAR HEMOGLOBIN 30.4 pg (28-32); MEAN CORPUSCULAR HGB CONC 29.8 g/dL (31-35); MONOCYTES # (AUTO) 0.7 (0.2-0.8); MONOCYTES % 6.9 % (4.4-11.3); NEUTROPHILS # (AUTO) 6.4 (2.1-6.9); NEUTROPHILS % 68.9 % (38.7-80.0); PLATELET COUNT 92 x10e3/uL (140-360); RED BLOOD COUNT 3.49 x10e6/uL (3.6-5.1); RED CELL DISTRIBUTION WIDTH 14.9 % (11.7-14.4)
[2018-10-29 06:08] LABS: ALBUMIN 2.7 g/dL (3.5-5.0); ALBUMIN/GLOBULIN RATIO 0.7 (0.8-2.0); ANION GAP 14.5 mmol/L (8-16); CALCIUM 8.9 mg/dL (8.4-10.2); CREATININE, SERUM 4.47 mg/dL (0.57-1.11); POTASSIUM 5.5 mmol/L (3.5-5.1)
[2018-10-29] MEDS ORDERED: ONDANSETRON HCL 4 MG ORAL DISINTEGRATING TAB PO PRN (08:30)
[2018-10-29] MEDS ORDERED: LEVOFLOXACIN 250MG/D5W 50ML 50 ML IV SCH (13:45)
[2018-10-29] MEDS ORDERED: ACETAMINOPHEN 325 MG TAB PO PRN (14:45)
[2018-10-29] MEDS ORDERED: GABAPENTIN300 MG PO (15:33)
[2018-10-29] MEDS ORDERED: ATORVASTATIN CA20 MG PO (15:35)
[2018-10-29] MEDS ORDERED: CIPRO500 MG PO (15:35)
[2018-10-29] MEDS ORDERED: CARVEDILOL3.125 MG PO (15:35)
[2018-10-29] MEDS ORDERED: ASPIRIN81 MG PO (15:36)
--- NOTE | 2018-10-29 16:24 | Consultation ---
DATE OF CONSULTATION: 10/29/2018 Renal Consultation. REASON FOR CONSULTATION: End-stage renal disease. HISTORY OF PRESENT ILLNESS: A 77-year-old female with end-stage renal disease, on hemodialysis Saturday, Saturday, and Saturday, who presented to [facility] for a suprapubic discomfort. The patient denies having any fevers, chills, or any dysuria. The patient; however; does not know when she is urinating and has incontinence. The patient was found to have an infiltrate on the x-ray and was started on antibiotics. Nephrology was consulted for hemodialysis. The patient at this time feels much improved and has no complaints. REVIEW OF SYSTEMS: As above. All other systems negative. PAST MEDICAL HISTORY: 1. End-stage renal disease, on hemodialysis Saturday, Saturday, and Saturday. 2. Type 2 diabetes. 3. History of renal mass. 4. Hypertension. 5. Congestive heart failure, diastolic. 6. Peripheral vascular disease. 7. Status post bilateral below-knee amputations. SOCIAL HISTORY: No tobacco. No alcohol. No IV drugs. FAMILY HISTORY: Noncontributory. ALLERGIES: PENICILLIN, TETANUS, AND TOXOID. CURRENT MEDICATIONS: See list. PHYSICAL EXAMINATION: VITALS: Blood pressure 109/52, pulse 64, respiratory rate 21, and temperature 97.8. GENERAL: No apparent distress. HEENT: Oropharynx clear. No scleral icterus. No peripheral edema. NECK: Supple. No elevated jugular venous pressure. CHEST: Decreased breath sounds at bases anteriorly bilaterally. CARDIOVASCULAR: Regular rhythm. ABDOMEN: Soft. Positive bowel sounds. No tenderness. No rebound. : No suprapubic fullness or tenderness. EXTREMITIES: 1+ edema. LABORATORY DATA: Sodium 129, potassium 5.5, chloride 93, CO2 27, BUN 26, creatinine 4.47, and albumin 2.7. White count 9.37, hemoglobin 10.6, hematocrit 35.6, and platelets 92. Urine 11-[address] abdomen and pelvis shows nonobstructing left renal stone, progressive distention, transverse diameter of the gallbladder with associated small amount of sludge. Diffuse circumferential wall thickening of stomach may be inflammatory. Chest x-ray, retrocardiac opacity concerning for developing consolidation. ASSESSMENT AND PLAN: 1. End-stage renal disease. We will plan for hemodialysis today. Continue Saturday, Saturday, and Saturday. 2. Hyperkalemia. We will treat with hemodialysis. 3. Anemia secondary to chronic kidney disease. We will start Epogen if the patient remains in the hospital. 4. Abdominal pain with abnormal CT findings. We will possibly need GI consultation. 5. Abnormal chest x-ray. We will follow up after dialysis. MD LISANDRO Redding/PADDY /[id number]
[2018-10-29] MEDS ORDERED: INSULIN LISPRO 100 UNIT/1 ML 3ML VIAL SQ SCH (16:30)
[2018-10-29] MEDS ORDERED: SODIUM CHLORIDE 0.9% 1000ML 2,000 ML ONE (16:47)
[2018-10-29] MEDS ORDERED: SODIUM CHLORIDE 0.9% 1000ML 2,000 ML IV PRN (17:00)
[2018-10-29] MEDS ORDERED: GLIMEPIRIDE2 MG PO (18:49)
--- NOTE | 2018-10-29 18:55 | NUR ---
RECEIVED REPORT FROM PREVIOUS NURSE. CALL LIGHT WITHIN REACH. PATIENT IN BED.
[2018-10-29] MEDS: INSULIN LISPRO 100 UNIT/1 ML 3ML VIAL SQ SCH ×2 (20:00→21:00)
--- NOTE | 2018-10-29 20:00 | NUR ---
CALLED DR. RATLIFF AND WAITING FOR DR. RATLIFF TO CALL BACK ABOUT PATIENT'S HUMALOG HAS NO EXACT SCALE TO GIVE THE PATIENT
--- NOTE | 2018-10-29 21:11 | Diagnostic Imaging Report ---
History: Pain, rule out infection. Comparison studies: No direct comparison available, compared with CT abdomen and pelvis from 10/28/[address] abdomen from 10/07/2017. Technique: Axial images were obtained through the lumbar spine from T12-S1. Coronal and sagittal images reconstructed from the axial data. Dose modulation, iterative reconstruction, and/or weight based adjustment of the mA/kV was utilized to reduce the radiation dose to as low as reasonably achievable. Intravenous contrast: None Findings: The usual 5 non-rib bearing lumbar vertebral bodies are present. Alignment: Mild straightening of lumbar lordosis is either positional or due to muscle spasm. Mild levocurvature of lumbar spine at level L1-L2. Soft tissues: Atherosclerotic calcification in the abdominal aorta and its branches. Paraspinal muscles: Fatty atrophy of posterior paraspinal muscles at L4, L5 and S1. Sacroiliac joints: Degenerative changes in bilateral sacroiliac joints with decreased joint space, subchondral sclerosis and trace vacuum phenomenon. Vertebrae: No acute fracture. In comparison with prior CT of the abdomen from 10/07/2017 there is interval progression of endplate sclerosis and osseous erosive changes at level L1-L2 and widening of intervertebral disc space. Degenerative changes: L1-L2: Increased intervertebral disc space with advanced endplate sclerosis and erosive changes with large anterior vertebral osteophyte and mild to moderate anterior para vertebral soft tissue prominence. These findings may represent progressive advanced degenerative changes versus acute on chronic osteomyelitis in appropriate clinical setting. 1.5 mm grade 1 retrolisthesis. Disc bulge and grade 1 retrolisthesis results in mild canal stenosis. Severe right and mild left foraminal stenosis. L2-L3: Mild degenerative disc disease. Asymmetric disc bulge to the right without significant canal stenosis. Mild right foraminal stenosis. L3-L4: Mild degenerative disc disease with degenerative endplate changes, anterior vertebral osteophyte and Schmorl's nodes. Disc bulge asymmetric to left in combination with thickened ligamentum flavum and mild facet arthrosis results in moderate canal stenosis. Moderate bilateral foraminal stenosis. L4-L5: Mild degenerative disc disease. Disc bulge in combination with facet arthrosis and thickened ligamentum flavum results in severe canal stenosis. Severe right and moderate left facet arthrosis. Mild right and severe left foraminal stenosis. L5-S1: Mild degenerative disc disease. Disc bulge without canal stenosis. Mild bilateral facet arthrosis. Mild left foraminal stenosis. IMPRESSION: 1. In comparison with prior CT abdomen from 10/07/2017 there is interval progression of endplate sclerosis and osseous erosive changes at level L1-L2. Differential consideration includes progressive chronic osteomyelitis, acute on chronic osteomyelitis or progressive advanced degenerative changes in appropriate clinical setting. This can be better evaluated with MRI of the lumbar spine with and without contrast. 2. Multilevel lumbar spondylosis, particularly results in mild canal stenosis at L1-L2, moderate canal stenosis at L3-L4 and severe canal stenosis at L4-L5. 3. Multilevel foraminal stenosis, particularly severe right and mild left at L1-L2, mild right at L2-L3, moderate bilateral at L3-L4, mild right and severe left at L4-L5 and mild left at L5-S1. 4. Ligament, spinal cord and or vascular abnormalities cannot be excluded on the basis of this examination. Signed by: Dr. Raisa Andres M.D. on 10/29/2018 9:07 PM
--- NOTE | 2018-10-29 22:19 | NUR ---
TALKED TO DR. RATLIFF ABOUT PATIENT'S HUMALOG. DR. RATLIFF ORDER LOW DOSE SLIDING SCALE, ACHS.
--- NOTE | 2018-10-29 22:31 | History and Physical ---
HISTORY OF PRESENT ILLNESS: The patient is 77 years old female with past medical history of positive diabetes, chronic diastolic congestive heart failure, end-stage renal disease on dialysis, peripheral vascular disease, status post left below-knee amputation, who came here with severe abdominal pain. Abdomen CT was done showed evidence of nonobstructing left kidney stones. No hydronephrosis. Progressive distention of the gallbladder. No evidence of cholecystitis. Diffuse circumferential wall thickening on the stomach and proximal small bowel, worsened end-plate sclerosis with cortical disruption with soft tissue component at L1 and L2, which may reflect osteomyelitis, so she was admitted to the hospital. REVIEW OF SYSTEMS: CARDIOVASCULAR: No chest pain or palpitation. RESPIRATORY: She has chronic shortness of breath. GASTROINTESTINAL: No nausea or vomiting. No diarrhea. GENITOURINARY: No frequency. No dysuria. MUSCULOSKELETAL: She has back pain right next to the abdomen. ALLERGIES: ALLERGIC TO PENICILLIN, TETANUS VACCINE, AND TOXOID. SOCIAL HISTORY: She does not smoke. She does not drink. PAST MEDICAL HISTORY: Positive for diabetes, end-stage renal disease, chronic diastolic congestive heart failure, peripheral vascular disease, status post below-knee amputation, status post implantable cardiac defibrillator. PHYSICAL EXAMINATION: VITAL SIGNS: Blood pressure is 134/60, temperature 98 degrees, heart rate 65 per minute, respiratory rate 20 per minute oxygen saturation 98%. HEART: Regular rhythm. No murmur or added sounds. LUNGS: Show crackles on both lungs. ABDOMEN: Soft. She had an umbilical hernia. Which is reducible. EXTREMITIES: Show a below-knee amputation in both lower extremities. No edema. LABORATORY DATA: On CBC, white blood count 9.37, hemoglobin 10.6, hematocrit 35.6, and platelet count 292,000. On the CMP, sodium 139, potassium 5.5, chloride 93, CO2 of 27, BUN 26, creatinine 4.47, glucose 113, calcium 8.9, total bilirubin 0.2, AST 14, ALT 7, alkaline phosphatase 75. Troponin 0.049 and 0.055. Total protein 6.7, albumin 2.7, globulin 4.0. The urinalysis showed a large amount of leukocyte. Coagulation shows PT 14.5, INR 1.08, PTT 30.3. Chest x-rays show infiltrates. Urine culture has been sent and report is pending. IMPRESSION: 1. Pneumonia. 2. Abdominal pain. 3. End-stage renal disease, on dialysis. 4. Uncontrolled diabetes mellitus type 2 with end-stage renal disease. 5. Peripheral vascular disease, status post bilateral below-knee amputation. 6. Acute on chronic diastolic congestive heart failure. 7. Lumbar spine possible osteomyelitis. PLAN OF TREATMENT: We are going to start her on Levaquin 250 mg IV daily. The patient will continue with [place] 7.5/325 q.4-q.6 hours as needed for severe pain. Continue monitoring the sugar before meals and HS. Continue diabetic renal diet. Continue morphine 4 mg IV q.4 hours as needed for severe pain, Zofran 4 mg q.4 hours as needed for nausea and vomiting. We are going to also give her some Tylenol 325 mg q.4 hours as needed for mild pain or fever. We are going to consult Dr. Barcenas for Nephrology because the patient dialysis. We are going to consult Dr. Alexandra for infectious diseases because of possible osteomyelitis on the lumbar spine. Urine culture has been sent. The report is pending. Family is going to be in the rest of the medication because she has had a scheduled dosing. MD RAQUEL Marroquin/PADDY /[id number]
[2018-10-30] VITALS: BP 150/69
--- NOTE | 2018-10-30 00:32 | Consultation ---
DATE OF CONSULTATION: 10/29/2018 The patient is concerned about diskitis. HISTORY OF PRESENT ILLNESS: This patient, who is a 77-year-old white female with history of end-stage renal disease on hemodialysis, comes into [facility] with suprapubic discomfort, not feeling well. There is no fever. No chills. Chest x-ray showed there is infiltrate. There was concern about pneumonia. She was admitted on antibiotic. Nephrology was consulted. PAST MEDICAL HISTORY: The patient has history of end-stage renal disease on hemodialysis, diabetes mellitus type 2, history of renal mass, history of hypertension, congestive heart failure, peripheral vascular disease, status post bilateral [id number] amputation. ALLERGIES: NKA. PAST SURGICAL HISTORY: As above. SOCIAL HISTORY: There is no smoking, drug abuse, or alcohol abuse. FAMILY HISTORY: Otherwise noncontributory other than hypertension. REVIEW OF SYSTEMS: HEENT: Negative. PULMONARY: Negative. CARDIAC: Negative. : Negative. SKIN: There is no rash. LABORATORY DATA: Reviewed. CAT scan showed nonobstructing left renal stone, progressive distention of the gallbladder consistent with small amount of sludge, no thickening, diffuse wall thickening of the stomach in the proximal small bowel may be inflammatory, infectious, worsening scoliosis of L1-L2 with compression may reflect osteomyelitis. Her cultures have been negative. Her laboratory data Her white count is 9.3, hemoglobin 10.6. Her sodium 129, potassium 5.5. MEDICATION LIST: She is currently on levofloxacin and Tylenol. PHYSICAL EXAMINATION: GENERAL: She is currently alert, does not seem to be in acute distress. VITAL SIGNS: Stable. Currently afebrile. HEENT: She is not icteric. NECK: Supple. CHEST: Clear. COR: S1, S2. No murmurs. ABDOMEN: Soft. Bowel sounds present. No tenderness. EXTREMITIES: No edema. IMPRESSION: 1. Abnormal CT scan suggestive of osteomyelitis of the lumbar spine. I would recommend to obtain an MRI. Obtain sedimentation rate, C-reactive protein. Await blood cultures. 2. Pneumonia, community acquired. Continue Levaquin. 3. End-stage renal disease on hemodialysis. We will follow. MD ALEJANDRO Camacho/PADDY /[id number]
[2018-10-30 04:38] VITALS: BP 141/63
[2018-10-30 05:49] LABS: ANION GAP 14.4 mmol/L (8-16); CALCIUM 9.3 mg/dL (8.4-10.2); CREATININE, SERUM 2.93 mg/dL (0.57-1.11); POTASSIUM 4.4 mmol/L (3.5-5.1)
--- NOTE | 2018-10-30 07:15 | NUR ---
Gave report to oncoming nurse. Patient in bed. Call light within reach
[2018-10-30 07:23] VITALS: BP 123/63
[2018-10-30] MEDS: INSULIN LISPRO 100 UNIT/1 ML 3ML VIAL SQ SCH ×4 (07:30→21:04)
[2018-10-30] MEDS ORDERED: INSULIN LISPRO 100 UNIT/1 ML 3ML VIAL SQ SCH (07:30)
[2018-10-30 11:11] VITALS: BP 137/65
[2018-10-30 15:33] VITALS: BP 135/57
[2018-10-30] MEDS: CARVEDILOL 3.125 MG TAB PO SCH (17:00)
--- NOTE | 2018-10-30 17:00 | Diagnostic Imaging Report ---
Bone Scan, three-phase Reason for exam: Evaluate for osteomyelitis in the lumbar spine Radiopharmaceutical: Tc-99m MDP 27.0 mCi Comparison: CT lumbar spine 10/29/2018 Following intravenous administration of the radiopharmaceutical, dynamic flow and immediate blood pool images of the lumbar spine and pelvis followed by delayed planar spot images of the lumbar spine, pelvis, hips and thighs were obtained. Flow and blood pool images show symmetric distribution of tracer activity to the lumbar spine and pelvis without focal abnormality. The delayed images of the lumbar spine show focal increased tracer in L1 as well as focal increased tracer at the costovertebral junction on the left side of T12. The remainder of the delayed planar images of the lumbar spine, pelvis, hips and thighs are unremarkable. Impression: Acute osteoblastic process in L1 may be due to infection, degenerative change or posttraumatic change. A labeled WBC study will be performed to add specificity to the evaluation for infection. Signed by: Dr. Renate Kern M.D. on 10/30/2018 4:56 PM
--- NOTE | 2018-10-30 18:36 | Progress Note ---
DATE: 10/30/2018 Internal Medicine Progress Note SUBJECTIVE: The patient is doing well. No significant complaints. OBJECTIVE: VITAL SIGNS: Blood pressure 137/65, temperature 97.1 degrees Fahrenheit, heart rate 74 per minute, respiratory rate is 20 per minute, and oxygen saturation 100%. HEART: Regular rhythm. Normal S1, S2 sound. LUNGS: Clear bilaterally. ABDOMEN: Soft. EXTREMITIES: Below-knee amputation in both lower extremities. LABORATORY DATA: On blood work, we have BMP with a sodium 133, potassium 4.4, chloride 95, CO2 28, BUN 15, creatinine 2.93, and glucose 88. On CBC; white blood count 9.37, hemoglobin 10.6, hematocrit 35.6, platelet count 92,000. PT 14.5, INR 1.08, and PTT 30.3. AST 14, ALT 7, total bilirubin 0.2, alkaline phosphatase 75. FINAL IMPRESSION: On this patient: 1. Atypical abdominal pain. 2. Possible osteomyelitis on L1-L2. 3. End-stage renal disease, on dialysis. 4. Uncontrolled diabetes mellitus, type 2 with end-stage renal disease. 5. Anemia of chronic disease secondary to end-stage renal disease. 6. History of coronary artery disease. 7. Chronic systolic congestive heart failure. 8. Diabetic neuropathy. 9. Lobar pneumonia. 10. Peripheral vascular disease, status post bilateral below-knee amputation. PLAN OF TREATMENT: We are going to continue dialysis. Continue morphine 4 mg IV q.4 hours as needed. Continue monitoring blood sugar before meals and at bedtime. Continue Levaquin 250 mg IV daily, Tylenol 325 mg q.[address] of the lumbar spine has been ordered because MRI cannot be done to rule out osteomyelitis. Infectious Disease, Dr. Alexandra has been consulted. Dr. Ventura Fitzpatrick has been consulted also because of epigastric pain. MD RAQUEL Marroquin/PADDY /[id number]
--- NOTE | 2018-10-30 18:55 | NUR ---
Got report from previous nurse. call light within reach. patient in bed.
--- NOTE | 2018-10-30 19:26 | Progress Note ---
DATE: 10/30/2018 SUBJECTIVE: Ms. Cox is lying in bed, comfortable. She came here because she was not feeling well, but there was no back pain. When I saw her yesterday, her back pain was minimum. She has some back discomfort. This patient has history of end-stage renal disease, diabetes mellitus, bilateral yqyfj-[id number]-kykw amputations, obesity, and peripheral vascular disease. She came here and she was diagnosed with pneumonia. She is doing well with Levaquin. The problem with her, CAT scan showed suggestive of L1-L2 possibility diskitis, but clinically, I do not think so. We could not do an MRI because the patient has a pacemaker, so we will recommend to do a CT of the lumbar spine. Lumbar spine CT was ordered, which showed progression of sclerosis with erosive changes at level L1-L2. I ordered a sedimentation rate and C-reactive protein. Sedimentation rate is 38, which goes against infection. PHYSICAL EXAMINATION: GENERAL: She is currently alert, oriented, does not seem to be in acute distress. VITAL SIGNS: Stable, currently afebrile. HEENT: She is not icteric. NECK: Supple. CHEST: Clear. HEART: S1, S2. No S3, S4, or murmur. ABDOMEN: Soft. Bowel sounds present. No tenderness. EXTREMITIES: No edema. SKIN: No rash. IMPRESSION: I do not think the patient have osteomyelitis. We will order indium scan. We will follow with you. Pneumonia, continue Levaquin for 5 days. MD ALEJANDRO Camacho/PADDY /[id number]
[2018-10-30 20:00] VITALS: BP 142/64
[2018-10-30] MEDS: GABAPENTIN 300 MG CAP PO SCH (21:04)
[2018-10-30] MEDS: ATORVASTATIN 20 MG TAB PO SCH (21:04)
[2018-10-31] VITALS (8 sets, daily range): BP systolic 103–154; BP diastolic 53–72
[2018-10-31] MEDS: MORPHINE SULFATE INJ 4 MG/ML INJ 1ML IV PRN ×2 (06:15→12:09)
--- NOTE | 2018-10-31 07:10 | NUR ---
patient in bed. Call light within reach. Gave report to oncoming nurse
[2018-10-31] MEDS: INSULIN LISPRO 100 UNIT/1 ML 3ML VIAL SQ SCH ×4 (07:30→21:00)
[2018-10-31] MEDS: ASPIRIN 81 MG CHEW TAB PO SCH (07:30)
[2018-10-31] MEDS: CARVEDILOL 3.125 MG TAB PO SCH ×2 (08:52→17:00)
[2018-10-31] MEDS: GLIMEPIRIDE 2 MG TAB PO SCH (08:52)
[2018-10-31] MEDS: GABAPENTIN 300 MG CAP PO SCH ×3 (08:53→21:35)
[2018-10-31] MEDS: LEVOFLOXACIN 250 MG TAB PO SCH (08:53)
--- NOTE | 2018-10-31 09:30 | NUR ---
Per OR nurse MD will not do EGD on the same day as patient receives dialysis. EGD to be rescheduled per
--- NOTE | 2018-10-31 13:40 | NUR ---
PATIENT RECEIVED FROM OBS PER STRETCHER. ALERT AND VERBALLY RESPONSIVE, DENIED PAIN AT THIS TIME. PATIENT RECEIVED DIALYSIS TREATMENT TODAY AND 2.5 L WAS REMOVED PER PREVIEWS NURSE. ALL PERSONAL ITEMS CLOSE TO PATIENT. BED IN LOWER POSITION, CALL LIGHT AT REACH. FAMILY MEMBER AT BED SIDE.
--- NOTE | 2018-10-31 19:17 | NUR ---
PT IS RESTING IN BED. NO RESPIRATORY DISTRESS NOTED. BED IN THE LOWEST POSITION, LOCKED, AND CALL LIGHT WITHIN REACH. WILL CONTINUE TO MONITOR.
--- NOTE | 2018-10-31 20:56 | Progress Note ---
DATE: 10/31/2018 Internal Medicine Progress Note SUBJECTIVE: The patient is doing well. No significant complaints, except about the food. She does not like the food. She is on diabetic renal diet. PHYSICAL EXAMINATION: VITAL SIGNS: Blood pressure 103/72, temperature 96.7, heart rate 68 per minute, respiratory rate 18 per minute, oxygen saturation 96%. HEART: Regular rhythm. Normal murmur or added sound. LUNGS: Clear bilaterally. ABDOMEN: Soft. EXTREMITIES: Bilateral below-knee amputation. LABORATORY DATA: On the BMP, sodium 133, potassium 4.4, chloride 95, CO2 of 28, BUN 15, creatinine 2.93, glucose 88. On CBC, white count 9.37, hemoglobin 10.6, hematocrit 35.6, platelet count 92,000. PT 14.5, INR 1.08, PTT 30.3. AST 14, ALT 7, total bilirubin 0.2, alkaline phosphatase 75. IMPRESSION: 1. Abdominal pain. 2. End-stage renal disease, on dialysis. 3. Possible osteomyelitis of L1-L2. 4. Uncontrolled diabetes mellitus type 2 with end-stage renal disease. 5. Anemia of chronic disease. 6. Chronic pain syndrome. PLAN OF TREATMENT: Continue with morphine 4 mg IV q.4 hours as needed, Zofran 4 mg IV q.4 hours as needed. Continue monitoring blood sugar before meals and at bedtime. Carvedilol 3.125 mg twice a day, [place] 1 tablet q.6 hours as needed, Levaquin 250 mg IV daily, gabapentin 300 mg three times a day, Tylenol 325 mg q.4 hours as needed, aspirin 81 mg daily, glimepiride 1 mg daily, Lipitor 20 mg daily. Continue diabetic and renal diet. Continue dialysis. MD RAQUEL Marroquin/MODL /[id number]
[2018-10-31] MEDS: ATORVASTATIN 20 MG TAB PO SCH (21:35)
[2018-10-31] MEDS: HYDROCODONE/APAP 7.5MG-325MG 1 EA TAB PO PRN (22:34)
[2018-11-01] VITALS (8 sets, daily range): BP systolic 102–122; BP diastolic 51–60
[2018-11-01] MEDS: MORPHINE SULFATE INJ 4 MG/ML INJ 1ML IV PRN ×2 (01:09→14:05)
[2018-11-01] MEDS: HYDROCODONE/APAP 7.5MG-325MG 1 EA TAB PO PRN ×2 (06:29→21:09)
--- NOTE | 2018-11-01 07:22 | NUR ---
PATIENT SITTING UP IN BED FIXING HER HER. REFUSED HER FINGER TO BE CLEANED BEFORE CHECKING BLOOD SUGAR. PATIENT EDUCATED ON THE IMPORTANCE OF CLEANING SHE STATED "IT IS NOT NECESSARY". ALL PERSONAL ITEMS CLOSE TO PATIENT, CALL LIGHT AT REACH.
[2018-11-01] MEDS: INSULIN LISPRO 100 UNIT/1 ML 3ML VIAL SQ SCH ×4 (07:30→21:00)
[2018-11-01] MEDS: ASPIRIN 81 MG CHEW TAB PO SCH (08:00)
[2018-11-01] MEDS: GLIMEPIRIDE 2 MG TAB PO SCH (09:18)
[2018-11-01] MEDS: CARVEDILOL 3.125 MG TAB PO SCH ×2 (09:18→17:00)
[2018-11-01] MEDS: LEVOFLOXACIN 250 MG TAB PO SCH (09:18)
[2018-11-01] MEDS: GABAPENTIN 300 MG CAP PO SCH ×3 (09:18→21:09)
--- NOTE | 2018-11-01 11:14 | NUR ---
PATIENT REFUSED BLOOD SUGAR TO BE CHECKED AFTER 2 ATTEMPTS. EDUCATED ON THE IMPORTANCE OF BLOOD SUGAR MONITORING, BUT STILL REFUSED. IN BED WRITING, CALL LIGHT AT REACH.
--- NOTE | 2018-11-01 14:45 | NUR ---
PATIENT OFF UNIT TO NUCLEAR MEDICINE.
--- NOTE | 2018-11-01 16:10 | NUR ---
PATIENT BACK TO UNIT FROM NUCLEAR MEDICINE. DIAPER CHANGED, REPOSITIONED IN BED. V/S 96.7-71-18-102/52 AND 95% ON 3L N/C. CALL LIGHT AT REACH.
--- NOTE | 2018-11-01 18:03 | Diagnostic Imaging Report ---
Labeled WBC Study Reason for exam: Evaluate for osteomyelitis in the lumbar spine Comparison: Three-phase bone scan 10/30/2018 Report: The patient's own white blood cells were labeled with In-111 oxine 0.514 mCi by a commercial radiopharmacy. Images of the lower thoracic and lumbar spine as well as the pelvis were obtained at 24 hours post administration of the labeled white blood cells. The spleen is enlarged. A focal area of decreased tracer activity is seen in L2 and corresponds to the site of increased tracer activity seen on 3-phase bone scan of (reported as L1 but is L2). IMPRESSION: Absence of tracer activity in L2 on the labeled WBC study is consistent with osteomyelitis and corresponds to the area of increased osteoblastic activity on the recent 3-phase bone scan. Signed by: Dr. Renate Kern M.D. on 11/01/2018 6:00 PM
--- NOTE | 2018-11-01 19:08 | NUR ---
PT IS RESTING IN BED. NO RESPIRATORY DISTRESS NOTED. BED IN THE LOWEST POSITION, LOCKED, AND CALL LIGHT WITHIN REACH. WILL CONTINUE TO MONITOR.
[2018-11-01] MEDS: ATORVASTATIN 20 MG TAB PO SCH (21:09)
--- NOTE | 2018-11-01 23:25 | NUR ---
PT VOMITED X2. PER DR LATASHA CAZARES 4MG IV Q6H PRN. WILL CONTINUE TO MONITOR.
[2018-11-01] MEDS ORDERED: ONDANSETRON HCL INJ 2MG/ML 2ML 2 MG/ML VIAL IV PRN (23:30)
[2018-11-02] VITALS (9 sets, daily range): BP systolic 109–166; BP diastolic 55–73
[2018-11-02] MEDS: MORPHINE SULFATE INJ 4 MG/ML INJ 1ML IV PRN ×2 (01:22→13:50)
--- NOTE | 2018-11-02 04:36 | Diagnostic Imaging Report ---
Abdomen/KUB INDICATION: ^ABD DISTENTION/VOMITING ^[id number] ^0350 COMPARISON: CT abdomen/pelvis 10/20/2018. FINDINGS: Portable, supine images obtained at 0351 hours. Images are motion degraded. Medical Devices: Dual-lead pacemaker wires are poorly visualized Bowel: There is gaseous dilatation of the stomach. Enteric contrast is present in the bowel without dilatation. Prominent stool ball in the rectum. No pneumatosis. Free air: None Calcifications: Arterial calcifications particularly of the aorta and splenic artery. Organomegaly: None Lung bases: Bibasilar atelectasis. Small left pleural effusion cannot be excluded Bones: Diffusely demineralized. Erosive changes of the L1-2 vertebral bodies consistent with discitis/osteomyelitis are grossly stable. IMPRESSION: 1. Motion degraded exam. 2. Gaseous dilatation of the stomach of uncertain etiology. Please correlate with history of gastroparesis. Partial gastric outlet obstruction cannot be excluded. 3. Enteric contrast in the bowel without dilatation. Large stool ball in the rectum. 4. Cardiomegaly and bibasilar atelectasis. Small left pleural effusion cannot be excluded. 5. Erosive changes of L1-2 from discitis/osteomyelitis . Signed by: Dr. Rosario Sidhu MD on 11/02/2018 4:32 AM
--- NOTE | 2018-11-02 04:41 | NUR ---
PAGE DR Renzo LOONEY WITH KUB RESULT. PER DR LOONEY DULCOLAX SUPPOSITORY 10MG X1, REGLAN 10MG IV Q6H, AND MAKE PT NPO. WILL CONTINUE TO MONITOR.
[2018-11-02] MEDS ORDERED: BISACODYL 10 MG SUPP PR ONE (04:45)
[2018-11-02] MEDS: METOCLOPRAMIDE HCL 10 MG/2ML VIAL IV SCH ×3 (05:10→18:07)
[2018-11-02 06:44] LABS: AMYLASE 54 U/L (25-125); LIPASE 19 U/L (8-78)
--- NOTE | 2018-11-02 07:15 | NUR ---
PATIENT IN BED RESTING WITH WITH HEAD OF BED ELEVATED, O2 IN PLACE VIA N/C. PILLOWS IN PLACE UNDER BILATERAL BKA STUMPS. BED IN LOWER POSITION AND LOCKED, CALL LIGHT AT REACH.
[2018-11-02] MEDS: ASPIRIN 81 MG CHEW TAB PO SCH (07:30)
[2018-11-02] MEDS: INSULIN LISPRO 100 UNIT/1 ML 3ML VIAL SQ SCH ×4 (07:30→20:08)
[2018-11-02] MEDS: LEVOFLOXACIN 250 MG TAB PO SCH (09:00)
[2018-11-02] MEDS: CARVEDILOL 3.125 MG TAB PO SCH ×2 (09:00→17:00)
[2018-11-02] MEDS: GABAPENTIN 300 MG CAP PO SCH ×3 (09:00→20:08)
[2018-11-02] MEDS: GLIMEPIRIDE 2 MG TAB PO SCH (09:00)
--- NOTE | 2018-11-02 11:25 | NUR ---
PATIENT IN BED RESTING WITH NO RESPIRATORY DISTRESS. EXTRA PILLOWS PROVIDED FOR COMFORT. BED IN LOWER POSITION AND LOCKED. CALL LIGHT AT REACH.
[2018-11-02] MEDS ORDERED: MINERAL OIL 132 ML BTL PR NR (12:00)
--- NOTE | 2018-11-02 14:00 | NUR ---
MD IN TO SEE PATIENT, NOTIFIED OF PATIENT CONSTIPATION. ORDER RECEIVED FOR FLEET ENEMA X 1. ORDER IMPLEMENTED, PATIENT HAD A LARGE HARD STOOL. REPOSITIONED IN BED.
[2018-11-02] MEDS ORDERED: BISACODYL 10 MG SUPP PR NR (16:30)
--- NOTE | 2018-11-02 19:15 | NUR ---
PT IS RESTING IN BED. NO RESPIRATORY DISTRESS NOTED. BED IN THE LOWEST POSITION, LOCKED, AND CALL LIGHT WITHIN REACH. WILL CONTINUE TO MONITOR.
[2018-11-02] MEDS: DEXTROSE 50% SYRINGE 50 ML IV PRN (20:06)
[2018-11-02] MEDS: ATORVASTATIN 20 MG TAB PO SCH (20:08)
--- NOTE | 2018-11-02 20:48 | NUR ---
PAGE DR RATLIFF TO NOTIFY HIM THAT PT BLOOD SUGAR WAS 55. RECHECK IT AND IT IS NOW 126. AWAITING CALL BACK.
[2018-11-03] VITALS (9 sets, daily range): BP systolic 78–116; BP diastolic 41–62
[2018-11-03] MEDS ORDERED: BISACODYL 10 MG SUPP PR ONE (00:15)
[2018-11-03] MEDS: METOCLOPRAMIDE HCL 10 MG/2ML VIAL IV SCH ×5 (00:38→23:54)
--- NOTE | 2018-11-03 00:39 | NUR ---
PER DR Renzo LOONEY DULCOLAX SUPPOSITORY 20MG ONE TIME DOSE, ICE CHIP, AND SIP OF WATER TO TAKE HER PAIN MEDICATION. WILL CONTINUE TO MONITOR. Addendum: 11/03/18 at 0044 by Sharda Mckeon RN ALSO DR Nadiya LOONEY ORDERED STAT KUB.
--- NOTE | 2018-11-03 01:59 | Diagnostic Imaging Report ---
EXAM: Abdomen 1 Views INDICATION: ^ABD DISTENDED ^[id number] ^0040 COMPARISON: KUB 11/02/2018 FINDINGS: Lines/tubes: None Mild amount of stool in the colon. Retained mild amount of oral contrast in the colon. No dilated loops of small bowel. Decreased distention of the stomach. No renal calculi. No abnormal soft tissue masses. Advanced degenerative changes in the lumbar spine and pelvis. Erosive changes of L1-2 from discitis/osteomyelitis. Diffuse vascular calcifications. IMPRESSION: 1. Improved distention of the stomach. 2. Nonobstructive bowel gas pattern. Signed by: Dr. Chyna Dowell M.D. on 11/03/2018 1:56 AM
--- NOTE | 2018-11-03 02:04 | NUR ---
NOTIFY DR Renzo LOONEY OF KUB RESULT. PER DR LOONEY CHANGE DIET TO CLEAR LIQUID. WILL CONTINUE TO MONITOR.
--- NOTE | 2018-11-03 05:28 | NUR ---
SPOKE TO DR PAGAN IN REGARD TO PT BP 78/50, HR 71. PT BLOOD SUGAR WAS 103. PT IS ASYMPTOMATIC. PER DR PAGAN ECHO AND MIDODRINE 10MG PO Q 8H. WILL CONTINUE TO MONITOR
[2018-11-03] MEDS: MIDODRINE 2.5 MG TAB PO SCH ×3 (05:55→21:15)
[2018-11-03] MEDS: INSULIN LISPRO 100 UNIT/1 ML 3ML VIAL SQ SCH ×4 (07:30→20:48)
[2018-11-03] MEDS: ASPIRIN 81 MG CHEW TAB PO SCH (07:30)
[2018-11-03] MEDS ORDERED: SODIUM CHLORIDE 0.9% 1000ML 2,000 ML IV PRN (08:30)
[2018-11-03] MEDS ORDERED: ALBUMIN 25% 12.5GM 0.25 GM/ML BTL IV PRN (08:30)
[2018-11-03] MEDS ORDERED: SODIUM CHLORIDE 0.9% 250ML 500 ML IV PRN (08:30)
[2018-11-03] MEDS: CARVEDILOL 3.125 MG TAB PO SCH ×2 (09:00→16:59)
[2018-11-03] MEDS: GABAPENTIN 300 MG CAP PO SCH ×3 (09:00→20:51)
[2018-11-03] MEDS: LEVOFLOXACIN 250 MG TAB PO SCH (09:00)
[2018-11-03] MEDS: GLIMEPIRIDE 2 MG TAB PO SCH (09:00)
[2018-11-03 10:23] LABS: BASOPHILS % 0.2 % (0.0-1.0); HEMATOCRIT 33.1 % (34.2-44.1); LYMPHOCYTES # (AUTO) 1.5 (1.0-3.2); LYMPHOCYTES % 6.2 % (18.0-39.1); MEAN CORPUSCULAR HEMOGLOBIN 30.9 pg (28-32); MEAN CORPUSCULAR HGB CONC 30.2 g/dL (31-35); MEAN CORPUSCULAR VOLUME 102.2 fL (81-99); MONOCYTES # (AUTO) 0.9 (0.2-0.8); MONOCYTES % 3.6 % (4.4-11.3); NEUTROPHILS % 89.4 % (38.7-80.0); PLATELET COUNT 130 x10e3/uL (140-360); RED BLOOD COUNT 3.24 x10e6/uL (3.6-5.1); RED CELL DISTRIBUTION WIDTH 14.9 % (11.7-14.4)
--- NOTE | 2018-11-03 10:36 | NUR ---
Received critical lab result pt has wbc 24.65 Addendum: 11/03/18 at 1058 by Genny Ogden RN Dr Luna made aware of pt's critical value wbc 24.65, K 6.6. current vs: 114/48, t96.1 oral, hr 80. orders received to collect bcx/x2, cbc in am, and inform Dr Brennan of elevated wbc results.
[2018-11-03 10:39] LABS: ANION GAP 16.6 mmol/L (8-16); CALCIUM 8.8 mg/dL (8.4-10.2); CREATININE, SERUM 5.95 mg/dL (0.57-1.11)
[2018-11-03 10:45] LABS: POTASSIUM 6.6 mmol/L (3.5-5.1)
--- NOTE | 2018-11-03 10:58 | NUR ---
Pt taken out of room to Endoscopy for EGD and Colonoscopy. Addendum: 11/03/18 at 1127 by Genny Ogden RN entered on wrong pt.
[2018-11-03] MEDS ORDERED: VANCOMYCIN 1GM/NS 250 ML 250 ML IV SCH (16:00)
[2018-11-03] MEDS ORDERED: CEFEPIME 1GM/NS 0.9% 50 ML 50 ML IV SCH (16:00)
--- NOTE | 2018-11-03 16:24 | NUR ---
Called Dr Christy's office to inform pt has a pacemaker and does not qualify to have an MRI of the Lumbar Spine per message received from MRI dept.
--- NOTE | 2018-11-03 16:58 | NUR ---
ORDER RECEIVED FOR [facility]. PT WAS PROVIDED CHOICE. STATES SHE HAD BEEN TO [place] BEFORE AND WAS OK TO RETURN THERE. PT C/O FEELING HOT. VERIFIED HER NAME AND DATE OF . CALLED [facility], BEDSIDE NURSE TO [facility]. CM ALSO CALLED PT'S . STATES HE WAS OK W HER GOING TO [facility] IF SHE WAS OK W TRANSFERRING THERE. STATES THEY HAD A BAD EXPERIENCE THEIR LAST STAY W HER BS DROPPING. INFORMED I WILL MAKE THE [facility] AWARE. CONTACTED [facility] FOR EVAL AND TRANSFER WHEN ACCEPTED. DISCUSSED CLOSE MONITORING OF THE PT PER THE 'S REQUEST. PT CHOSE [facility]. CHOICE LETTER WAS SIGNED AND PLACE IN THE CHART. MOT WAS INITIATED.
[2018-11-03] MEDS ORDERED: EPOETIN ALFA 10000 UNIT/ML VIAL SC SCH (17:30)
[2018-11-03] MEDS: DEXTROSE 50% SYRINGE 50 ML IV PRN (17:39)
--- NOTE | 2018-11-03 18:53 | Progress Note ---
DATE: 11/03/2018 Internal Medicine Progress Note SUBJECTIVE: The patient is sleeping right now. OBJECTIVE: HEART: Blood pressure 114/48, temperature 96.1, heart rate 80 per minute, respiratory rate 20 per minute, oxygen saturation 97%. HEART: Showed regular rhythm. Normal S1, S2 sound. LUNGS: Clear bilaterally. ABDOMEN: Soft. EXTREMITIES: Showed bilateral below-knee amputation. LABORATORY DATA: On the BMP; sodium 133, potassium 6.6, chloride 95, CO2 28, BUN 87, creatinine 5.95, glucose 134. On the CBC; white count 24,600, hemoglobin 10.0, hematocrit 33.1, platelet count of 130,000. PT 14.5, INR 1.08, PTT 30.3. AST 14, ALT 7, total bilirubin 0.2, alkaline phosphatase 75. FINAL IMPRESSION: 1. Abdominal pain, which is resolved. 2. End-stage renal disease, on dialysis. 3. Osteomyelitis of the lumbar spine. 4. Uncontrolled diabetes mellitus type 2 with end-stage renal disease. 5. Anemia of chronic disease secondary to end-stage renal disease. 6. Lobar pneumonia. 7. New onset leukocytosis. PLAN OF TREATMENT: Blood culture x2 is going to be done. Continue with morphine 4 mg IV q.4 hours as needed, carvedilol 3.125 mg twice a day, metoclopramide 10 mg IV q.6 hours as needed, Zofran 4 mg IV q.4 hours as needed. Continue to monitor blood sugar before meals and at bedtime. Continue diabetic renal diet. Continue gabapentin 300 mg three times a day, midodrine 10 mg q.8 hours, Hav[place] 1 tablet q.6 hours as needed, aspirin 81 mg daily, glimepiride 1 mg daily. Continue Tylenol 325 mg q.4 hours as needed for pain and fever, Lipitor 20 mg daily, Zofran 4 mg IV q.[address] Alexandra is on the case for infectious diseases. The patient is going to get an EGD on Saturday. Antibiotic has been discontinued and discussed trace activity on L2 level. Dr. Alexandra, Infectious Disease will decide about the antibiotic therapy. Oscar Luna MD LAS/MODL /[id number]
--- NOTE | 2018-11-03 19:00 | NUR ---
patient received awake, alert, lying quietly in bed. no c/o pain noted at this time. respirations even and unlabored. 3l/nc in use. pm assessment complete. patient instructed to call for assistance when needed.
--- NOTE | 2018-11-03 19:26 | NUR ---
Bedside change of shift report given to LUIS ANTONIO Mac. Pt is resting comfortably in bed, respiration even and unlabored with 3L O2/NC. Vancomycin 1 gram post HD infusing well to right ac with no signs of infiltration. Pt is awaiting transfer to [facility].
[2018-11-03] MEDS: ATORVASTATIN 20 MG TAB PO SCH (20:51)
--- NOTE | 2018-11-04 01:30 | NUR ---
Dr. Fitzpatrick here to see patient. patient to remain npo for egd today. patient verbalizes understanding of this.
[2018-11-04 01:34] VITALS: BP 124/60
--- NOTE | 2018-11-04 02:30 | NUR ---
lrg formed bm x 2 noted. skin care provided.
--- NOTE | 2018-11-04 03:17 | NUR ---
while making rounds on patient, patient found with lrg amount blood vomited up by patient. patient unresponsive and no pulse noted at this time. code pravin called.
--- NOTE | 2018-11-04 03:47 | NUR ---
code complete. time of 0347.
--- NOTE | 2018-11-04 03:53 | NUR ---
Dr. Luna notified of patients at this time.
--- NOTE | 2018-11-04 04:00 | NUR ---
post mortem care complete.
--- NOTE | 2018-11-04 04:00 | NUR ---
Nadiya Moreland notified of patients at this time.
--- NOTE | 2018-11-04 04:00 | NUR ---
MrMoustapha () and Mercy (daughter) notified of change in patients status at this time.
--- NOTE | 2018-11-04 04:20 | NUR ---
family here. family made aware of patients at this time.
--- NOTE | 2018-11-04 05:00 | NUR ---
[facility] called at this time. spoke to Gladys Bird, case# [id number].
--- NOTE | 2018-11-04 05:26 | NUR ---
spoke to re: arrangements. informed me to call [facility].
--- NOTE | 2018-11-04 05:37 | NUR ---
ASSESSMENT: [employer] Nurse called in following pt's . Pt's family actively grieving. Pt's family expressing emotions thru words and tears. Pt's states "she isn't hurting anymore." Intervention: Provided empathic listening and pastoral presence. Facilitated illness review. Provided prayer of committal. Outcome: Pt's family expressed appreciation for support. Followed up with RN. Will mail sympathy letter and brochure on grief to . [facility] O: [phone] Pager: [phone] ([phone] number calling from)
--- NOTE | 2018-11-04 05:50 | NUR ---
[facility] called at this time. spoke to Abiola Lee. ETA 1-1.5 hrs.
[2018-11-04] MEDS: MIDODRINE 2.5 MG TAB PO SCH (06:00)
[2018-11-04] MEDS: METOCLOPRAMIDE HCL 10 MG/2ML VIAL IV SCH (06:00)
--- NOTE | 2018-11-04 07:05 | NUR ---
patient discharged to [facility] at this time. patient remains in room at time of discharge.
[2018-11-04] MEDS ORDERED: SODIUM BICARBONATE 8.4% INJ 50 ML SYR ONE (18:19)
[2018-11-04] MEDS ORDERED: EPINEPHRINE HCL SYRINGE ONE (18:19)
--- NOTE | 2018-11-19 16:19 | NUR ---
Discharge summary: [id number]
--- NOTE | 2018-11-19 17:07 | Discharge Summary ---
ADMIT DIAGNOSES: 1. Sepsis secondary to urinary tract infection. 2. Stvqu-[id number] diastolic congestive heart failure. 3. End-stage renal disease. 4. Type 2 diabetes mellitus. DISCHARGE DIAGNOSES: 1. Acute respiratory failure secondary to sepsis from left lower lobe gram-negative pneumonia. 2. Left lower lobe gram-negative blade pneumonia. 3. Acute on chronic diastolic congestive heart failure. 4. End-stage renal disease. 5. Sepsis secondary to Enterococcus faecium, urinary tract infection. 6. Type 2 diabetes mellitus. HOSPITAL COURSE: This is a 77-year-old white woman, who was initially admitted to [facility] with diagnosis of sepsis secondary to urinary tract infection. Soon thereafter, the patient was actually found to be septic secondary to left lower lobe pneumonia, likely gram-negative blade as well as urinary tract infection. Urine culture revealed the presence of Enterococcus faecium, bacterial species greater than 100,000 colony-forming units/mL urine as well as Sabiha glabrata. Chest x-ray performed during this hospitalization did reveal left lower lobe retrocardiac opacity consistent with pneumonia. A chest x-ray also revealed cardiomegaly as well as bilateral interstitial infiltrates consistent with acute on chronic diastolic heart failure. During this hospital stay, patient did undergo hemodialysis because she has known history of end-stage renal disease. The patient unfortunately never improved clinically during this hospital stay. The patient was found to be unresponsive on November 04, 2018 and no pulse was noted. Full advanced cardiac life support protocol was initiated, which resulted in intravenous epinephrine and endotracheal intubation. The patient was also given intravenous saline bolus as well as intravenous antibiotics, namely Merrem, Levaquin, vancomycin and cefepime. The full advanced cardiac life support protocol was continued for a total of 45 minutes. The patient, however, was never resuscitated and was pronounced at 3:47 a.m. on November 04, 2018. The attending Dr. Luna was notified as well as the family members. MD WYATT Campo/PADDY /[id number]
== END 2018-11-04 07:30 | disposition expired | DRG 871 ==
LOC: ER 16:02 → ERHOLD 20:02 → IMCU 20:50 → OBSVTOIN 10-29 15:34 → MED/SURG3 10-31 13:28
PROVIDERS: ADMIT Internal Medicine; ATTEND Internal Medicine
PROC: 5A1D70Z Performance of Urinary Filtration, Intermittent, Less than 6 Hours Per Day (ICD-10-PCS; principal; 2018-10-29)
PROC: 5A1D70Z Performance of Urinary Filtration, Intermittent, Less than 6 Hours Per Day (ICD-10-PCS; 2018-10-31)
PROC: 5A1D70Z Performance of Urinary Filtration, Intermittent, Less than 6 Hours Per Day (ICD-10-PCS; 2018-11-03)
DX: A41.9 Sepsis, unspecified organism (principal); N18.6 End stage renal disease; J96.00 Acute respiratory failure, unspecified whether with hypoxia or hypercapnia; J15.6 Pneumonia due to other Gram-negative bacteria; I50.43 Acute on chronic combined systolic (congestive) and diastolic (congestive) heart failure; I13.2 Hypertensive heart and chronic kidney disease with heart failure and with stage 5 chronic kidney disease, or end stage renal disease; N39.0 Urinary tract infection, site not specified; M46.26 Osteomyelitis of vertebra, lumbar region; R65.20 Severe sepsis without septic shock; Z82.49 Family history of ischemic heart disease and other diseases of the circulatory system; Z88.0 Allergy status to penicillin; Z88.7 Allergy status to serum and vaccine; I73.9 Peripheral vascular disease, unspecified; Z89.512 Acquired absence of left leg below knee; N20.0 Calculus of kidney; Z95.810 Presence of automatic (implantable) cardiac defibrillator; E11.22 Type 2 diabetes mellitus with diabetic chronic kidney disease; E87.5 Hyperkalemia; D63.1 Anemia in chronic kidney disease; R53.81 Other malaise; E66.9 Obesity, unspecified; Z68.25 Body mass index [BMI] 25.0-25.9, adult; K59.00 Constipation, unspecified; E11.42 Type 2 diabetes mellitus with diabetic polyneuropathy; G89.4 Chronic pain syndrome; Z99.2 Dependence on renal dialysis; Z79.82 Long term (current) use of aspirin; Z79.84 Long term (current) use of oral hypoglycemic drugs
CPT/HCPCS: 31500; 36415; 71045; 72131; 74018; 74176; 78315; 80048; 80053; 81001; 82150; 82550; 82553; 82948; 83690; 84484; 85025; 85610; 85651; 85730; 86140; 86704; 86705; 86706; 87040; 87086; 87186; 87340; 90962; 92950; 93005; 93306; 99284; A9503; A9570; G0378; J0171; J0692; J1956; J2185; J2270; J2405; J2765; J3370; J7030; J7799; Q4081